=== PATIENT | female | born 1940 | race Caucasian/White ===

== ENCOUNTER 2017-05-16 15:47 | Inpatient (IN) ==
--- NOTE | 2017-05-16 16:29 | Emergency Department Note ---
Disposition Clinical Impression: Dyspnea, Headache, Hypoxia, Pneumonitis, CAP (community acquired pneumonia) Disposition: Admitted As Inpatient Condition: Critical General Adult HPI - General Chief complaint: ED Fall Stated complaint: fell/head injury sent by Isauro Rasmussen/[facility] Time Seen by Provider: 05/16/17 16:25 Source: patient Limitations: no limitations - History of Present Illness Pain Scale: 5 - Related Data Home Medications Medication Instructions Recorded Confirmed ALPRAZolam [Xanax 1 MG Tablet] 1 mg PO HS 09/03/15 05/16/17 Acetaminophen [Tylenol] 325 mg PO Q6HR PRN 05/16/17 05/16/17 Aspirin Enteric Coated [Aspirin EC] 325 mg PO DAILY 05/16/17 05/16/17 Atorvastatin [Lipitor] 40 mg PO HS 05/16/17 05/16/17 Bimatoprost [Lumigan] 1 drop OP QPM 05/16/17 05/16/17 Ergocalciferol (VITAMIN D2) 50,000 unit PO QWEEK 05/16/17 05/16/17 [Vitamin D2] Allergies Allergy/AdvReac Type Severity Reaction Status Date / Time No Known Allergies Allergy Verified 05/12/17 07:32 Past Medical History - Past Medical History Medical history: Reports: cancer Psychiatric history: Reports: anxiety - Social History Smoking Status: Never smoker Smokeless Tobacco Status: No Alcohol use: Reports: none Drug use: Reports: none Physical Exam - General Limitations: no limitations General appearance: alert, anxious Course Vital Signs Temperature 98.0 F 05/16/17 16:11 Pulse Rate 88 05/16/17 16:11 Respiratory Rate 16 05/16/17 16:11 Blood Pressure 106/75 05/16/17 16:11 O2 Sat by Pulse Oximetry 72 05/16/17 16:11 Temperature 97.7 F 05/17/17 08:00 Pulse Rate 60 05/17/17 16:00 Respiratory Rate 27 05/17/17 16:14 Blood Pressure 108/70 05/17/17 16:14 O2 Sat by Pulse Oximetry 97 05/17/17 16:14 Oxygen Delivery Oxygen Delivery Bipap Medical Decision Making - Lab Data Result diagrams: 05/17/17 03:27 05/17/17 03:27 Lab Results 05/16/17 05/16/17 05/16/17 Range/Units 17:03 17:03 17:03 WBC 9.4 (4.3-11.1) K/mcL RBC 5.27 H (3.82-4.97) M/mcL Hgb 16.6 H (11.5-15.4) g/dL Hct 49.9 H (35.3-44.9) % MCV 94.7 (83.0-100.0) fL MCH 31.5 (28.0-33.3) pg MCHC 33.3 (31.6-35.5) g/dL RDW 14.9 H (11.5-14.5) % Plt Count 179 (140-400) K/mcL MPV 10.1 (9.4-12.4) fL Immature Gran % 1.4 (0-4) % Seg Neutrophils % 89.6 % Lymphocytes % 6.2 % Monocytes % 2.0 % Eosinophils % 0.4 % Basophils % 0.4 % Neutrophils # 8.4 (1.6-8.9) K/mcL Lymphocytes # 0.6 (0.6-4.6) K/mcL Monocytes # 0.2 (0.0-1.3) K/mcL Eosinophils # 0.0 (0.0-0.6) K/mcL Basophils # 0.0 (0.0-0.2) K/mcL Nucleated RBCs/100 WBC 0.4 H (0) /100 WBC ESR (0-15) mm/hr Sample Site ABG pH (7.32-7.45) pH Units ABG pCO2 (35-45) mmHg ABG pO2 (85-104) mmHg ABG HCO3 (21-27) mEq/L ABG Total CO2 (20-26) mEq/L ABG O2 Saturation (95-98) % ABG Base Excess (-2 to 3) mEq/L Inderjit Test O2 Delivery Device Blood Gas Modality Inspired O2 (1-15=lpm [id number]=%) Sodium 136 (136-145) mEq/L Potassium 3.8 (3.5-5.1) mEq/L Chloride 102 (98-107) mEq/L Carbon Dioxide 22 L (23-29) mEq/L BUN 30 H (8-23) mg/dL Creatinine 0.96 (0.60-1.20) mg/dL Est GFR ( Amer) > 60 (> 60) Est GFR (Non-Af Amer) 56 L (> 60) BUN/Creatinine Ratio 31 H (6-26) Glucose 82 (70-105) mg/dL POC Glucose (58-89) Calculated Osmolality 287 (280-300) Lactic Acid 2.3 H (0.5-2.2) mmol/L Calcium 9.2 (8.6-10.3) mg/dL Phosphorus 3.7 (2.7-4.5) mg/dL Magnesium 1.7 (1.6-2.6) mg/dL Total Bilirubin 1.0 (0.3-1.0) mg/dL Direct Bilirubin 0.3 H (0.0-0.2) mg/dL Indirect Bilirubin 0.7 (0.0-1.2) mg/dL AST 54 H (13-39) Units/L ALT 78 H (7-52) Units/L Alkaline Phosphatase 192 H (34-104) Units/L Troponin I (< 0.04) ng/mL B-Natriuretic Peptide (Less than 100) pg/mL Serum Total Protein 6.1 L (6.4-8.9) g/dL Albumin 2.9 L (3.5-5.7) g/dL Globulin 3.2 (2.4-3.5) g/dL Albumin/Globulin Ratio 0.9 L (1.1-2.2) Urine Color (Yellow) Urine Clarity (Clear) Urine pH (5.0-8.0) pH Units Ur Specific [place] (1.010-1.025) Urine Protein (Neg-Trace) mg/dL Urine Glucose (UA) (Normal) mg/dL Urine Ketones (Negative) mg/dL Urine Blood (Negative) Urine Nitrite (Negative) Urine Bilirubin (Negative) Urine Urobilinogen (Normal) mg/dL Ur Leukocyte Esterase (Negative) Urine Microscopic RBC (0-3) per hpf Urine Microscopic WBC (0-3) per hpf Ur Squamous Epith Cells (None-Few) per lpf Urine Bacteria (None-Few) per hpf Hyaline Casts (None-Few) per lpf Ur Culture Indicated? (NO) 05/16/17 05/16/17 05/16/17 Range/Units 17:03 17:03 17:21 WBC (4.3-11.1) K/mcL RBC (3.82-4.97) M/mcL Hgb (11.5-15.4) g/dL Hct (35.3-44.9) % MCV (83.0-100.0) fL MCH (28.0-33.3) pg MCHC (31.6-35.5) g/dL RDW (11.5-14.5) % Plt Count (140-400) K/mcL MPV (9.4-12.4) fL Immature Gran % (0-4) % Seg Neutrophils % % Lymphocytes % % Monocytes % % Eosinophils % % Basophils % % Neutrophils # (1.6-8.9) K/mcL Lymphocytes # (0.6-4.6) K/mcL Monocytes # (0.0-1.3) K/mcL Eosinophils # (0.0-0.6) K/mcL Basophils # (0.0-0.2) K/mcL Nucleated RBCs/100 WBC (0) /100 WBC ESR 64 H (0-15) mm/hr Sample Site ABG pH (7.32-7.45) pH Units ABG pCO2 (35-45) mmHg ABG pO2 (85-104) mmHg ABG HCO3 (21-27) mEq/L ABG Total CO2 (20-26) mEq/L ABG O2 Saturation (95-98) % ABG Base Excess (-2 to 3) mEq/L Inderjit Test O2 Delivery Device Blood Gas Modality Inspired O2 (1-15=lpm [id number]=%) Sodium (136-145) mEq/L Potassium (3.5-5.1) mEq/L Chloride (98-107) mEq/L Carbon Dioxide (23-29) mEq/L BUN (8-23) mg/dL Creatinine (0.60-1.20) mg/dL Est GFR ( Amer) (> 60) Est GFR (Non-Af Amer) (> 60) BUN/Creatinine Ratio (6-26) Glucose (70-105) mg/dL POC Glucose (58-89) Calculated Osmolality (280-300) Lactic Acid (0.5-2.2) mmol/L Calcium (8.6-10.3) mg/dL Phosphorus (2.7-4.5) mg/dL Magnesium (1.6-2.6) mg/dL Total Bilirubin (0.3-1.0) mg/dL Direct Bilirubin (0.0-0.2) mg/dL Indirect Bilirubin (0.0-1.2) mg/dL AST (13-39) Units/L ALT (7-52) Units/L Alkaline Phosphatase (34-104) Units/L Troponin I 0.04 H* (< 0.04) ng/mL B-Natriuretic Peptide (Less than 100) pg/mL Serum Total Protein (6.4-8.9) g/dL Albumin (3.5-5.7) g/dL Globulin (2.4-3.5) g/dL Albumin/Globulin Ratio (1.1-2.2) Urine Color Dark Yellow (Yellow) Urine Clarity Cloudy A (Clear) Urine pH 5.0 (5.0-8.0) pH Units Ur Specific [place] > 1.030 H (1.010-1.025) Urine Protein 100 H (Neg-Trace) mg/dL Urine Glucose (UA) Normal (Normal) mg/dL Urine Ketones Trace H (Negative) mg/dL Urine Blood Negative (Negative) Urine Nitrite Negative (Negative) Urine Bilirubin Small H (Negative) Urine Urobilinogen Normal (Normal) mg/dL Ur Leukocyte Esterase Negative (Negative) Urine Microscopic RBC 0-3 (0-3) per hpf Urine Microscopic WBC 5-15 H (0-3) per hpf Ur Squamous Epith Cells Many H (None-Few) per lpf Urine Bacteria None Seen (None-Few) per hpf Hyaline Casts Many H (None-Few) per lpf Ur Culture Indicated? NO (NO) 05/16/17 05/16/17 05/16/17 Range/Units 17:32 19:47 19:48 WBC (4.3-11.1) K/mcL RBC (3.82-4.97) M/mcL Hgb (11.5-15.4) g/dL Hct (35.3-44.9) % MCV (83.0-100.0) fL MCH (28.0-33.3) pg MCHC (31.6-35.5) g/dL RDW (11.5-14.5) % Plt Count (140-400) K/mcL MPV (9.4-12.4) fL Immature Gran % (0-4) % Seg Neutrophils % % Lymphocytes % % Monocytes % % Eosinophils % % Basophils % % Neutrophils # (1.6-8.9) K/mcL Lymphocytes # (0.6-4.6) K/mcL Monocytes # (0.0-1.3) K/mcL Eosinophils # (0.0-0.6) K/mcL Basophils # (0.0-0.2) K/mcL Nucleated RBCs/100 WBC (0) /100 WBC ESR (0-15) mm/hr Sample Site R Radial ABG pH 7.46 H (7.32-7.45) pH Units ABG pCO2 29 L (35-45) mmHg ABG pO2 76 L (85-104) mmHg ABG HCO3 21 (21-27) mEq/L ABG Total CO2 22 (20-26) mEq/L ABG O2 Saturation 96 (95-98) % ABG Base Excess -2 (-2 to 3) mEq/L Inderjit Test Positive O2 Delivery Device NRB Blood Gas Modality Inspired O2 100.0 (1-15=lpm [id number]=%) Sodium (136-145) mEq/L Potassium (3.5-5.1) mEq/L Chloride (98-107) mEq/L Carbon Dioxide (23-29) mEq/L BUN (8-23) mg/dL Creatinine (0.60-1.20) mg/dL Est GFR ( Amer) (> 60) Est GFR (Non-Af Amer) (> 60) BUN/Creatinine Ratio (6-26) Glucose (70-105) mg/dL POC Glucose (58-89) Calculated Osmolality (280-300) Lactic Acid 2.5 H (0.5-2.2) mmol/L Calcium (8.6-10.3) mg/dL Phosphorus (2.7-4.5) mg/dL Magnesium (1.6-2.6) mg/dL Total Bilirubin (0.3-1.0) mg/dL Direct Bilirubin (0.0-0.2) mg/dL Indirect Bilirubin (0.0-1.2) mg/dL AST (13-39) Units/L ALT (7-52) Units/L Alkaline Phosphatase (34-104) Units/L Troponin I (< 0.04) ng/mL B-Natriuretic Peptide 176 H (Less than 100) pg/mL Serum Total Protein (6.4-8.9) g/dL Albumin (3.5-5.7) g/dL Globulin (2.4-3.5) g/dL Albumin/Globulin Ratio (1.1-2.2) Urine Color (Yellow) Urine Clarity (Clear) Urine pH (5.0-8.0) pH Units Ur Specific [place] (1.010-1.025) Urine Protein (Neg-Trace) mg/dL Urine Glucose (UA) (Normal) mg/dL Urine Ketones (Negative) mg/dL Urine Blood (Negative) Urine Nitrite (Negative) Urine Bilirubin (Negative) Urine Urobilinogen (Normal) mg/dL Ur Leukocyte Esterase (Negative) Urine Microscopic RBC (0-3) per hpf Urine Microscopic WBC (0-3) per hpf Ur Squamous Epith Cells (None-Few) per lpf Urine Bacteria (None-Few) per hpf Hyaline Casts (None-Few) per lpf Ur Culture Indicated? (NO) 05/16/17 05/16/17 05/17/17 Range/Units 21:18 21:21 01:54 WBC (4.3-11.1) K/mcL RBC (3.82-4.97) M/mcL Hgb (11.5-15.4) g/dL Hct (35.3-44.9) % MCV (83.0-100.0) fL MCH (28.0-33.3) pg MCHC (31.6-35.5) g/dL RDW (11.5-14.5) % Plt Count (140-400) K/mcL MPV (9.4-12.4) fL Immature Gran % (0-4) % Seg Neutrophils % % Lymphocytes % % Monocytes % % Eosinophils % % Basophils % % Neutrophils # (1.6-8.9) K/mcL Lymphocytes # (0.6-4.6) K/mcL Monocytes # (0.0-1.3) K/mcL Eosinophils # (0.0-0.6) K/mcL Basophils # (0.0-0.2) K/mcL Nucleated RBCs/100 WBC (0) /100 WBC ESR (0-15) mm/hr Sample Site ABG pH 7.44 (7.32-7.45) pH Units ABG pCO2 31 L (35-45) mmHg ABG pO2 61 L (85-104) mmHg ABG HCO3 21 (21-27) mEq/L ABG Total CO2 22 (20-26) mEq/L ABG O2 Saturation 92 L (95-98) % ABG Base Excess -2 (-2 to 3) mEq/L Inderjit Test O2 Delivery Device Blood Gas Modality bipap Inspired O2 50.0 (1-15=lpm sy91-823=%) Sodium (136-145) mEq/L Potassium (3.5-5.1) mEq/L Chloride (98-107) mEq/L Carbon Dioxide (23-29) mEq/L BUN (8-23) mg/dL Creatinine (0.60-1.20) mg/dL Est GFR ( Amer) (> 60) Est GFR (Non-Af Amer) (> 60) BUN/Creatinine Ratio (6-26) Glucose (70-105) mg/dL POC Glucose 159 H (58-89) Calculated Osmolality (280-300) Lactic Acid 1.5 (0.5-2.2) mmol/L Calcium (8.6-10.3) mg/dL Phosphorus (2.7-4.5) mg/dL Magnesium (1.6-2.6) mg/dL Total Bilirubin (0.3-1.0) mg/dL Direct Bilirubin (0.0-0.2) mg/dL Indirect Bilirubin (0.0-1.2) mg/dL AST (13-39) Units/L ALT (7-52) Units/L Alkaline Phosphatase (34-104) Units/L Troponin I (< 0.04) ng/mL B-Natriuretic Peptide (Less than 100) pg/mL Serum Total Protein (6.4-8.9) g/dL Albumin (3.5-5.7) g/dL Globulin (2.4-3.5) g/dL Albumin/Globulin Ratio (1.1-2.2) Urine Color (Yellow) Urine Clarity (Clear) Urine pH (5.0-8.0) pH Units Ur Specific [place] (1.010-1.025) Urine Protein (Neg-Trace) mg/dL Urine Glucose (UA) (Normal) mg/dL Urine Ketones (Negative) mg/dL Urine Blood (Negative) Urine Nitrite (Negative) Urine Bilirubin (Negative) Urine Urobilinogen (Normal) mg/dL Ur Leukocyte Esterase (Negative) Urine Microscopic RBC (0-3) per hpf Urine Microscopic WBC (0-3) per hpf Ur Squamous Epith Cells (None-Few) per lpf Urine Bacteria (None-Few) per hpf Hyaline Casts (None-Few) per lpf Ur Culture Indicated? (NO) 05/17/17 05/17/17 05/17/17 Range/Units 03:27 03:27 04:56 WBC 8.1 (4.3-11.1) K/mcL RBC 4.36 (3.82-4.97) M/mcL Hgb 13.8 D (11.5-15.4) g/dL Hct 40.3 (35.3-44.9) % MCV 92.4 (83.0-100.0) fL MCH 31.7 (28.0-33.3) pg MCHC 34.2 (31.6-35.5) g/dL RDW 15.0 H (11.5-14.5) % Plt Count 103 L (140-400) K/mcL MPV 9.9 (9.4-12.4) fL Immature Gran % 1.1 (0-4) % Seg Neutrophils % 92.2 % Lymphocytes % 4.7 % Monocytes % 1.8 % Eosinophils % 0.0 % Basophils % 0.2 % Neutrophils # 7.5 (1.6-8.9) K/mcL Lymphocytes # 0.4 L (0.6-4.6) K/mcL Monocytes # 0.2 (0.0-1.3) K/mcL Eosinophils # 0.0 (0.0-0.6) K/mcL Basophils # 0.0 (0.0-0.2) K/mcL Nucleated RBCs/100 WBC (0) /100 WBC ESR (0-15) mm/hr Sample Site R Radial ABG pH 7.41 (7.32-7.45) pH Units ABG pCO2 35 (35-45) mmHg ABG pO2 102 (85-104) mmHg ABG HCO3 22 (21-27) mEq/L ABG Total CO2 23 (20-26) mEq/L ABG O2 Saturation 98 (95-98) % ABG Base Excess -2 (-2 to 3) mEq/L Inderjit Test Positive O2 Delivery Device BiPAP Blood Gas Modality Inspired O2 50.0 (1-15=lpm [id number]=%) Sodium 133 L (136-145) mEq/L Potassium 3.8 (3.5-5.1) mEq/L Chloride 104 (98-107) mEq/L Carbon Dioxide 20 L (23-29) mEq/L BUN 26 H (8-23) mg/dL Creatinine 0.72 (0.60-1.20) mg/dL Est GFR ( Amer) > 60 (> 60) Est GFR (Non-Af Amer) > 60 (> 60) BUN/Creatinine Ratio 36 H (6-26) Glucose 147 H (70-105) mg/dL POC Glucose (58-89) Calculated Osmolality 283 (280-300) Lactic Acid (0.5-2.2) mmol/L Calcium 8.0 L (8.6-10.3) mg/dL Phosphorus (2.7-4.5) mg/dL Magnesium (1.6-2.6) mg/dL Total Bilirubin (0.3-1.0) mg/dL Direct Bilirubin (0.0-0.2) mg/dL Indirect Bilirubin (0.0-1.2) mg/dL AST (13-39) Units/L ALT (7-52) Units/L Alkaline Phosphatase (34-104) Units/L Troponin I (< 0.04) ng/mL B-Natriuretic Peptide (Less than 100) pg/mL Serum Total Protein (6.4-8.9) g/dL Albumin (3.5-5.7) g/dL Globulin (2.4-3.5) g/dL Albumin/Globulin Ratio (1.1-2.2) Urine Color (Yellow) Urine Clarity (Clear) Urine pH (5.0-8.0) pH Units Ur Specific [place] (1.010-1.025) Urine Protein (Neg-Trace) mg/dL Urine Glucose (UA) (Normal) mg/dL Urine Ketones (Negative) mg/dL Urine Blood (Negative) Urine Nitrite (Negative) Urine Bilirubin (Negative) Urine Urobilinogen (Normal) mg/dL Ur Leukocyte Esterase (Negative) Urine Microscopic RBC (0-3) per hpf Urine Microscopic WBC (0-3) per hpf Ur Squamous Epith Cells (None-Few) per lpf Urine Bacteria (None-Few) per hpf Hyaline Casts (None-Few) per lpf Ur Culture Indicated? (NO) Attestation Statement - Attestation Attestation: I examined this patient and my medical decision-making was reviewed with the Resident Physician. I agree with the documented findings, disposition and treatment plan as described except to the extent set forth below. [id number] time provided in conjunction with the resident physician Dr. Yee Patient arrives in the care of her daughter. They are concerned about increasing dyspnea, cough, generalized weakness. Patient sustained a recent fall with negative imaging studies. On exam the patient appears tachypneic and visibly dyspneic
[2017-05-16] MEDS ORDERED: 0.9 % Sodium Chloride 1,000 ML IVC ONE (16:46)
[2017-05-16] MEDS ORDERED: methylPREDNISolone 125 MG/2 ML VIAL IVP ONE (16:48)
--- NOTE | 2017-05-16 17:09 | Emergency Department Note ---
Disposition Clinical Impression: Hypoxia Dyspnea Qualifiers: Dyspnea type: unspecified Qualified Code(s): R06.00 - Dyspnea, unspecified Headache Qualifiers: Headache type: unspecified Headache chronicity pattern: unspecified pattern Intractability: not intractable Qualified Code(s): R51 - Headache Disposition: Still a Patient Condition: Fair Referrals: Anabel Rasmussen CNP [Primary Care Provider] - Forms: ED Satisfaction Letter General Adult HPI - General Chief complaint: ED Fall Stated complaint: fell/head injury sent by Isauro Rasmussen/[facility] Time Seen by Provider: 05/16/17 16:25 Source: patient Limitations: no limitations Nursing Notes Reviewed: Yes Vital Signs Reviewed: Yes - History of Present Illness HPI Narrative: Patient states that she fell on evening and was seen in the emergency department and evaluated. Patient today is complaining of headache and shortness of breath. Symptoms have been progressively worse over the last couple of days. She has not had associated nonproductive cough. 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 This taper did end last week. Patient denies fevers, chest pain or abdominal pain. Pain Scale: 0 - Related Data Home Medications Medication Instructions Recorded Confirmed ALPRAZolam [Xanax 1 MG Tablet] 1 mg PO HS 09/03/15 09/03/15 Aspirin/Calcium Carbonate/Mag 325 mg PO DAILY PRN 09/03/15 09/03/15 [Aspirin Buffered 325 mg Tab] Calcium Carbonate [Tums] 1,000 mg PO Q4HR PRN 09/03/15 09/03/15 Cholecalciferol (D-3) [Vitamin D] 2,000 unit PO DAILY 09/03/15 09/03/15 Previous Rx's Medication Instructions Recorded Supplies [SUPPLIES] 1 each .ROUTE AD #1 each 03/15/16 Supplies [SUPPLIES] 1 each .ROUTE AD #4 each 03/15/16 Allergies Allergy/AdvReac Type Severity Reaction Status Date / Time No Known Allergies Allergy Verified 05/12/17 07:32 Review of Systems: CONSTITUTIONAL: No weight loss, fever, chills, weakness or fatigue. HEENT: Eyes: No visual changes. Ears, Nose, Throat: No hearing loss, difficulty talking or unable to swallow. SKIN: No rash or itching. CARDIOVASCULAR: No chest pain, chest pressure or chest discomfort. No palpitations or edema. RESPIRATORY: Shortness of breath GASTROINTESTINAL: No anorexia, nausea, vomiting or diarrhea. No abdominal pain or blood. GENITOURINARY: No burning on urination or hematuria. NEUROLOGICAL: Headache No dizziness, syncope, paralysis, ataxia, numbness or tingling in the extremities. No change in bowel or bladder control. MUSCULOSKELETAL: No muscle pain, back pain, joint pain or stiffness. Past Medical History - Past Medical History Medical history: Reports: cancer Psychiatric history: Reports: anxiety - Social History Smoking Status: Never smoker Smokeless Tobacco Status: No Alcohol use: Reports: none Drug use: Reports: none Physical Exam General: Patient requiring supplemental oxygen Head: Normocephalic Atraumatic Eyes: PERRL, EOMI ENT: Airway patent, no stridor Neck: supple, no meningismus Chest: Rhonchi at the bases bilaterally Cardiac: Regular rate and rhythm, no murmurs, rubs or gallops Abdomen: soft, nontender, nondistended; no guarding, rebound, or tenderness to percussion Musculoskeletal: Calves symmetric, nontender, no palpable cord Skin: Healing scabs and abrasions to the lower extremities Neuro: Alert and Oriented to person, place, and time; No focal deficit, CN 2-12 symmetric and intact - General Limitations: no limitations General appearance: alert, anxious Course - Reevaluation(s) Reevaluation #1: The patient was given steroids as she has recently come off steroid taper and headache may be contributed to by vasculitis 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 The patient's shortness of breath has concern for worsening opacities in the lung. Recent state if the emergency department but not hospitalization. Antibiotics have been given. Patient has not had a productive cough or white count. CTA of the chest is being performed to rule out PE. CT of the head for possible delayed bleed. The family has been updated on her overall status. She is on a nonrebreather but leaving it as blow -by oxygen keeping her pulse ox in the high 80s to low 90s. She will likely need BiPAP. Respiratory has been called in regards to bringing a BiPAP when she returns from [place]. The case has been discussed with Dr. White. Dr. White will be following up on the CTA as well as a likely admission. Vital Signs Temperature 98.0 F 05/16/17 16:11 Pulse Rate 88 05/16/17 16:11 Respiratory Rate 16 05/16/17 16:11 Blood Pressure 106/75 05/16/17 16:11 O2 Sat by Pulse Oximetry 72 05/16/17 16:11 Temperature 98.0 F 05/16/17 16:11 Pulse Rate 99 05/16/17 18:18 Respiratory Rate 15 05/16/17 18:18 Blood Pressure 120/92 05/16/17 18:18 O2 Sat by Pulse Oximetry 95 05/16/17 18:18 Oxygen Delivery Oxygen Delivery Non Rebreather Mask Medical Decision Making - Medical Records Medical records reviewed: Yes I reviewed the patient's medical records. - Lab Data Lab results reviewed: Yes I reviewed the patient's lab results. Result diagrams: 05/16/17 17:03 05/16/17 17:03 Lab Results 05/16/17 05/16/17 05/16/17 Range/Units 17:03 17:03 17:03 WBC 9.4 (4.3-11.1) K/mcL RBC 5.27 H (3.82-4.97) M/mcL Hgb 16.6 H (11.5-15.4) g/dL Hct 49.9 H (35.3-44.9) % MCV 94.7 (83.0-100.0) fL MCH 31.5 (28.0-33.3) pg MCHC 33.3 (31.6-35.5) g/dL RDW 14.9 H (11.5-14.5) % Plt Count 179 (140-400) K/mcL MPV 10.1 (9.4-12.4) fL Immature Gran % 1.4 (0-4) % Seg Neutrophils % 89.6 % Lymphocytes % 6.2 % Monocytes % 2.0 % Eosinophils % 0.4 % Basophils % 0.4 % Neutrophils # 8.4 (1.6-8.9) K/mcL Lymphocytes # 0.6 (0.6-4.6) K/mcL Monocytes # 0.2 (0.0-1.3) K/mcL Eosinophils # 0.0 (0.0-0.6) K/mcL Basophils # 0.0 (0.0-0.2) K/mcL Nucleated RBCs/100 WBC 0.4 H (0) /100 WBC ESR (0-15) mm/hr Sample Site ABG pH (7.32-7.45) pH Units ABG pCO2 (35-45) mmHg ABG pO2 (85-104) mmHg ABG HCO3 (21-27) mEq/L ABG Total CO2 (20-26) mEq/L ABG O2 Saturation (95-98) % ABG Base Excess (-2 to 3) mEq/L Inderjit Test O2 Delivery Device Inspired O2 (1-15=lpm [id number]=%) Sodium 136 (136-145) mEq/L Potassium 3.8 (3.5-5.1) mEq/L Chloride 102 (98-107) mEq/L Carbon Dioxide 22 L (23-29) mEq/L BUN 30 H (8-23) mg/dL Creatinine 0.96 (0.60-1.20) mg/dL Est GFR ( Amer) > 60 (> 60) Est GFR (Non-Af Amer) 56 L (> 60) BUN/Creatinine Ratio 31 H (6-26) Glucose 82 (70-105) mg/dL Calculated Osmolality 287 (280-300) Lactic Acid 2.3 H (0.5-2.2) mmol/L Calcium 9.2 (8.6-10.3) mg/dL Phosphorus 3.7 (2.7-4.5) mg/dL Magnesium 1.7 (1.6-2.6) mg/dL Total Bilirubin 1.0 (0.3-1.0) mg/dL Direct Bilirubin 0.3 H (0.0-0.2) mg/dL Indirect Bilirubin 0.7 (0.0-1.2) mg/dL AST 54 H (13-39) Units/L ALT 78 H (7-52) Units/L Alkaline Phosphatase 192 H (34-104) Units/L Troponin I (< 0.04) ng/mL Serum Total Protein 6.1 L (6.4-8.9) g/dL Albumin 2.9 L (3.5-5.7) g/dL Globulin 3.2 (2.4-3.5) g/dL Albumin/Globulin Ratio 0.9 L (1.1-2.2) Urine Color (Yellow) Urine Clarity (Clear) Urine pH (5.0-8.0) pH Units Ur Specific [place] (1.010-1.025) Urine Protein (Neg-Trace) mg/dL Urine Glucose (UA) (Normal) mg/dL Urine Ketones (Negative) mg/dL Urine Blood (Negative) Urine Nitrite (Negative) Urine Bilirubin (Negative) Urine Urobilinogen (Normal) mg/dL Ur Leukocyte Esterase (Negative) Urine Microscopic RBC (0-3) per hpf Urine Microscopic WBC (0-3) per hpf Ur Squamous Epith Cells (None-Few) per lpf Urine Bacteria (None-Few) per hpf Hyaline Casts (None-Few) per lpf Ur Culture Indicated? (NO) 05/16/17 05/16/17 05/16/17 Range/Units 17:03 17:03 17:21 WBC (4.3-11.1) K/mcL RBC (3.82-4.97) M/mcL Hgb (11.5-15.4) g/dL Hct (35.3-44.9) % MCV (83.0-100.0) fL MCH (28.0-33.3) pg MCHC (31.6-35.5) g/dL RDW (11.5-14.5) % Plt Count (140-400) K/mcL MPV (9.4-12.4) fL Immature Gran % (0-4) % Seg Neutrophils % % Lymphocytes % % Monocytes % % Eosinophils % % Basophils % % Neutrophils # (1.6-8.9) K/mcL Lymphocytes # (0.6-4.6) K/mcL Monocytes # (0.0-1.3) K/mcL Eosinophils # (0.0-0.6) K/mcL Basophils # (0.0-0.2) K/mcL Nucleated RBCs/100 WBC (0) /100 WBC ESR 64 H (0-15) mm/hr Sample Site ABG pH (7.32-7.45) pH Units ABG pCO2 (35-45) mmHg ABG pO2 (85-104) mmHg ABG HCO3 (21-27) mEq/L ABG Total CO2 (20-26) mEq/L ABG O2 Saturation (95-98) % ABG Base Excess (-2 to 3) mEq/L Inderjit Test O2 Delivery Device Inspired O2 (1-15=lpm [id number]=%) Sodium (136-145) mEq/L Potassium (3.5-5.1) mEq/L Chloride (98-107) mEq/L Carbon Dioxide (23-29) mEq/L BUN (8-23) mg/dL Creatinine (0.60-1.20) mg/dL Est GFR ( Amer) (> 60) Est GFR (Non-Af Amer) (> 60) BUN/Creatinine Ratio (6-26) Glucose (70-105) mg/dL Calculated Osmolality (280-300) Lactic Acid (0.5-2.2) mmol/L Calcium (8.6-10.3) mg/dL Phosphorus (2.7-4.5) mg/dL Magnesium (1.6-2.6) mg/dL Total Bilirubin (0.3-1.0) mg/dL Direct Bilirubin (0.0-0.2) mg/dL Indirect Bilirubin (0.0-1.2) mg/dL AST (13-39) Units/L ALT (7-52) Units/L Alkaline Phosphatase (34-104) Units/L Troponin I 0.04 H* (< 0.04) ng/mL Serum Total Protein (6.4-8.9) g/dL Albumin (3.5-5.7) g/dL Globulin (2.4-3.5) g/dL Albumin/Globulin Ratio (1.1-2.2) Urine Color Dark Yellow (Yellow) Urine Clarity Cloudy A (Clear) Urine pH 5.0 (5.0-8.0) pH Units Ur Specific [place] > 1.030 H (1.010-1.025) Urine Protein 100 H (Neg-Trace) mg/dL Urine Glucose (UA) Normal (Normal) mg/dL Urine Ketones Trace H (Negative) mg/dL Urine Blood Negative (Negative) Urine Nitrite Negative (Negative) Urine Bilirubin Small H (Negative) Urine Urobilinogen Normal (Normal) mg/dL Ur Leukocyte Esterase Negative (Negative) Urine Microscopic RBC 0-3 (0-3) per hpf Urine Microscopic WBC 5-15 H (0-3) per hpf Ur Squamous Epith Cells Many H (None-Few) per lpf Urine Bacteria None Seen (None-Few) per hpf Hyaline Casts Many H (None-Few) per lpf Ur Culture Indicated? NO (NO) 05/16/17 Range/Units 17:32 WBC (4.3-11.1) K/mcL RBC (3.82-4.97) M/mcL Hgb (11.5-15.4) g/dL Hct (35.3-44.9) % MCV (83.0-100.0) fL MCH (28.0-33.3) pg MCHC (31.6-35.5) g/dL RDW (11.5-14.5) % Plt Count (140-400) K/mcL MPV (9.4-12.4) fL Immature Gran % (0-4) % Seg Neutrophils % % Lymphocytes % % Monocytes % % Eosinophils % % Basophils % % Neutrophils # (1.6-8.9) K/mcL Lymphocytes # (0.6-4.6) K/mcL Monocytes # (0.0-1.3) K/mcL Eosinophils # (0.0-0.6) K/mcL Basophils # (0.0-0.2) K/mcL Nucleated RBCs/100 WBC (0) /100 WBC ESR (0-15) mm/hr Sample Site R Radial ABG pH 7.46 H (7.32-7.45) pH Units ABG pCO2 29 L (35-45) mmHg ABG pO2 76 L (85-104) mmHg ABG HCO3 21 (21-27) mEq/L ABG Total CO2 22 (20-26) mEq/L ABG O2 Saturation 96 (95-98) % ABG Base Excess -2 (-2 to 3) mEq/L Inderjit Test Positive O2 Delivery Device NRB Inspired O2 100.0 (1-15=lpm [id number]=%) Sodium (136-145) mEq/L Potassium (3.5-5.1) mEq/L Chloride (98-107) mEq/L Carbon Dioxide (23-29) mEq/L BUN (8-23) mg/dL Creatinine (0.60-1.20) mg/dL Est GFR ( Amer) (> 60) Est GFR (Non-Af Amer) (> 60) BUN/Creatinine Ratio (6-26) Glucose (70-105) mg/dL Calculated Osmolality (280-300) Lactic Acid (0.5-2.2) mmol/L Calcium (8.6-10.3) mg/dL Phosphorus (2.7-4.5) mg/dL Magnesium (1.6-2.6) mg/dL Total Bilirubin (0.3-1.0) mg/dL Direct Bilirubin (0.0-0.2) mg/dL Indirect Bilirubin (0.0-1.2) mg/dL AST (13-39) Units/L ALT (7-52) Units/L Alkaline Phosphatase (34-104) Units/L Troponin I (< 0.04) ng/mL Serum Total Protein (6.4-8.9) g/dL Albumin (3.5-5.7) g/dL Globulin (2.4-3.5) g/dL Albumin/Globulin Ratio (1.1-2.2) Urine Color (Yellow) Urine Clarity (Clear) Urine pH (5.0-8.0) pH Units Ur Specific [place] (1.010-1.025) Urine Protein (Neg-Trace) mg/dL Urine Glucose (UA) (Normal) mg/dL Urine Ketones (Negative) mg/dL Urine Blood (Negative) Urine Nitrite (Negative) Urine Bilirubin (Negative) Urine Urobilinogen (Normal) mg/dL Ur Leukocyte Esterase (Negative) Urine Microscopic RBC (0-3) per hpf Urine Microscopic WBC (0-3) per hpf Ur Squamous Epith Cells (None-Few) per lpf Urine Bacteria (None-Few) per hpf Hyaline Casts (None-Few) per lpf Ur Culture Indicated? (NO) - Radiology Data Radiology results reviewed: Yes I reviewed the patient's radiology results. - EKG Data EKG #1 EKG attestation: Yes I reviewed and interpreted this EKG. EKG results narrative: EKG shows sinus rhythm with a rate of 94. Patient's QRS is 102. QTC is 378. No significant ST elevations or depressions.
[2017-05-16 17:13] LABS: Basophils % 0.4 %; Eosinophils % 0.4 %; Hematocrit 49.9 % (35.3-44.9); Hemoglobin 16.6 g/dL (11.5-15.4); Immature Granulocytes % 1.4 % (0-4); Lymphocytes # 0.6 K/mcL (0.6-4.6); Lymphocytes % 6.2 %; Mean Corpuscular HGB Conc 33.3 g/dL (31.6-35.5); Mean Corpuscular Hemoglobin 31.5 pg (28.0-33.3); Mean Corpuscular Volume 94.7 fL (83.0-100.0); Mean Platelet Volume 10.1 fL (9.4-12.4); Monocytes # 0.2 K/mcL (0.0-1.3); Neutrophils # 8.4 K/mcL (1.6-8.9); Nucleated Red Blood Cells 0.4 /100 WBC (0); Platelet Count 179 K/mcL (140-400); Red Blood Count 5.27 M/mcL (3.82-4.97); Red Cell Distribution Width 14.9 % (11.5-14.5); Segmented Neutrophils % 89.6 %
[2017-05-16 17:28] LABS: Bilirubin,Urine Small (Negative); Blood,Urine Negative (Negative); Clarity,Urine Cloudy (Clear); Color,Urine Dark Yellow (Yellow); Glucose,Urine (UA) Normal (Normal); Ketones,Urine Trace mg/dL (Negative); Leukocyte Esterase,Urine Negative (Negative); Nitrite,Urine Negative (Negative); Protein,Urine 100 mg/dL (Neg-Trace); Specific Gravity,Urine > 1.030 (1.010-1.025); Urobilinogen,Urine Normal (Normal)
[2017-05-16 17:31] LABS: Alanine Aminotransferase 78 Units/L (7-52); Albumin 2.9 g/dL (3.5-5.7); Albumin/Globulin Ratio 0.9 (1.1-2.2); Alkaline Phosphatase 192 Units/L (34-104); Aspartate Amino Transferase 54 Units/L (13-39); BUN/Creatinine Ratio 31 (6-26); Bilirubin,Direct 0.3 mg/dL (0.0-0.2); Bilirubin,Indirect 0.7 mg/dL (0.0-1.2); Blood Urea Nitrogen 30 mg/dL (8-23); Calcium 9.2 mg/dL (8.6-10.3); Carbon Dioxide 22 mEq/L (23-29); Chloride 102 mEq/L (98-107); Globulin 3.2 g/dL (2.4-3.5); Glucose 82 mg/dL (70-105); Magnesium 1.7 mg/dL (1.6-2.6); Osmolality,Calculated 287 (280-300); Phosphorous 3.7 mg/dL (2.7-4.5); Potassium 3.8 mEq/L (3.5-5.1); Sodium 136 mEq/L (136-145); Total Protein 6.1 g/dL (6.4-8.9); eGFR For African Americans > 60 (> 60); eGFR For Non-African Americans 56 (> 60)
[2017-05-16 17:31] LABS: Bacteria,Urine None Seen per hpf (None-Few); RBC,Urine 0-3 per hpf (0-3); Squamous Epithelial Cell,Urine Many per lpf (None-Few)
[2017-05-16 17:35] LABS: ABG Base Excess -2 mEq/L (-2 to 3); ABG HCO3 21 mEq/L (21-27); ABG Oxygen Saturation 96 % (95-98); ABG PCO2 29 mmHg (35-45); ABG PH 7.46 pH Units (7.32-7.45); ABG PO2 76 mmHg (85-104); ABG TCO2 22 mEq/L (20-26)
[2017-05-16 17:44] LABS: Hyaline Casts,Urine Many per lpf (None-Few)
[2017-05-16] MEDS ORDERED: *HR* FentaNYL (PF) 100 MCG/2 ML VIAL IVP ONE (18:15)
[2017-05-16] MEDS ORDERED: cefTRIAXone 1,000 MG in Water for inj. (sterile) 20 ML 10 ML IVPB ONE (19:07)
[2017-05-16] MEDS ORDERED: Azithromycin 500 MG in D5% in Water 250 ML IVPB ONE (19:08)
[2017-05-16] MEDS ORDERED: Vancomycin 2,000 MG in D5% in Water 250 ML IVPB ONE (19:58)
[2017-05-16] MEDS ORDERED: Piperacillin/Tazobactam 3.375 GM in Water for inj. (sterile) 20 ML 20 ML IVP ONE (19:58)
[2017-05-16] MEDS ORDERED: Vancomycin 1,000 MG in D5% in Water 250 ML IVPB ONE (20:15)
--- NOTE | 2017-05-16 21:11 | Emergency Department Note ---
Disposition Clinical Impression: Hypoxia, Pneumonitis Dyspnea Qualifiers: Dyspnea type: unspecified Qualified Code(s): R06.00 - Dyspnea, unspecified Headache Qualifiers: Headache type: unspecified Headache chronicity pattern: unspecified pattern Intractability: not intractable Qualified Code(s): R51 - Headache CAP (community acquired pneumonia) Qualifiers: Laterality: unspecified laterality Qualified Code(s): J18.9 - Pneumonia, unspecified organism Disposition: Admitted As Inpatient Condition: Critical Time of Disposition: 21:13 General Adult HPI - General Chief complaint: ED Fall Stated complaint: fell/head injury sent by Isauro Rasmussen/Haile Time Seen by Provider: 05/16/17 16:25 Source: patient Limitations: no limitations Nursing Notes Reviewed: Yes Vital Signs Reviewed: Yes - History of Present Illness Onset (ago): minute(s) Pain Scale: 0 - Related Data Home Medications Medication Instructions Recorded Confirmed ALPRAZolam [Xanax 1 MG Tablet] 1 mg PO HS 09/03/15 05/16/17 Acetaminophen [Tylenol] 325 mg PO Q6HR PRN 05/16/17 05/16/17 Aspirin Enteric Coated [Aspirin EC] 325 mg PO DAILY 05/16/17 05/16/17 Atorvastatin [Lipitor] 40 mg PO HS 05/16/17 05/16/17 Bimatoprost [Lumigan] 1 drop OP QPM 05/16/17 05/16/17 Ergocalciferol (VITAMIN D2) 50,000 unit PO QWEEK 05/16/17 05/16/17 [Vitamin D2] Allergies Allergy/AdvReac Type Severity Reaction Status Date / Time No Known Allergies Allergy Verified 05/12/17 07:32 Past Medical History - Past Medical History Medical history: Reports: cancer Psychiatric history: Reports: anxiety - Social History Smoking Status: Never smoker Smokeless Tobacco Status: No Alcohol use: Reports: none Drug use: Reports: none Physical Exam - General Limitations: no limitations General appearance: alert, anxious Course Course Narrative: Care was signed out from Dr. Yee, Dr. Roque, please see their documentation briefly patient is a 76-year-old female with recent fall and complains of shortness of breath chest pain and headache, she is found to be hypoxic and she has coarse rhonchi bilaterally CTA was ordered to rule out other causes of hypoxia and it showed diffuse parenchymal lung disease, the patient was started on broad-spectrum antibiotics of vancomycin and Zosyn, placed on BiPAP, repeat ABG and called the hospitalist the patient will be admitted for pneumonia, possible ARDS versus pneumonitisadmitted to ICU with Dr Canseco, see exam from Dr Yee. Vital Signs Temperature 98.0 F 05/16/17 16:11 Pulse Rate 88 05/16/17 16:11 Respiratory Rate 16 05/16/17 16:11 Blood Pressure 106/75 05/16/17 16:11 O2 Sat by Pulse Oximetry 72 05/16/17 16:11 Temperature 98.0 F 05/16/17 16:11 Pulse Rate 73 05/16/17 20:34 Respiratory Rate 24 05/16/17 20:34 Blood Pressure 127/94 05/16/17 20:34 O2 Sat by Pulse Oximetry 92 05/16/17 20:34 Oxygen Delivery Oxygen Delivery Bipap Medical Decision Making - Medical Records Medical records reviewed: Yes I reviewed the patient's medical records. - Lab Data Lab results reviewed: Yes I reviewed the patient's lab results. Result diagrams: 05/16/17 17:03 05/16/17 17:03 Lab Results 05/16/17 05/16/17 05/16/17 Range/Units 17:03 17:03 17:03 WBC 9.4 (4.3-11.1) K/mcL RBC 5.27 H (3.82-4.97) M/mcL Hgb 16.6 H (11.5-15.4) g/dL Hct 49.9 H (35.3-44.9) % MCV 94.7 (83.0-100.0) fL MCH 31.5 (28.0-33.3) pg MCHC 33.3 (31.6-35.5) g/dL RDW 14.9 H (11.5-14.5) % Plt Count 179 (140-400) K/mcL MPV 10.1 (9.4-12.4) fL Immature Gran % 1.4 (0-4) % Seg Neutrophils % 89.6 % Lymphocytes % 6.2 % Monocytes % 2.0 % Eosinophils % 0.4 % Basophils % 0.4 % Neutrophils # 8.4 (1.6-8.9) K/mcL Lymphocytes # 0.6 (0.6-4.6) K/mcL Monocytes # 0.2 (0.0-1.3) K/mcL Eosinophils # 0.0 (0.0-0.6) K/mcL Basophils # 0.0 (0.0-0.2) K/mcL Nucleated RBCs/100 WBC 0.4 H (0) /100 WBC ESR (0-15) mm/hr Sample Site ABG pH (7.32-7.45) pH Units ABG pCO2 (35-45) mmHg ABG pO2 (85-104) mmHg ABG HCO3 (21-27) mEq/L ABG Total CO2 (20-26) mEq/L ABG O2 Saturation (95-98) % ABG Base Excess (-2 to 3) mEq/L Inderjit Test O2 Delivery Device Inspired O2 (1-15=lpm [id number]=%) Sodium 136 (136-145) mEq/L Potassium 3.8 (3.5-5.1) mEq/L Chloride 102 (98-107) mEq/L Carbon Dioxide 22 L (23-29) mEq/L BUN 30 H (8-23) mg/dL Creatinine 0.96 (0.60-1.20) mg/dL Est GFR ( Amer) > 60 (> 60) Est GFR (Non-Af Amer) 56 L (> 60) BUN/Creatinine Ratio 31 H (6-26) Glucose 82 (70-105) mg/dL Calculated Osmolality 287 (280-300) Lactic Acid 2.3 H (0.5-2.2) mmol/L Calcium 9.2 (8.6-10.3) mg/dL Phosphorus 3.7 (2.7-4.5) mg/dL Magnesium 1.7 (1.6-2.6) mg/dL Total Bilirubin 1.0 (0.3-1.0) mg/dL Direct Bilirubin 0.3 H (0.0-0.2) mg/dL Indirect Bilirubin 0.7 (0.0-1.2) mg/dL AST 54 H (13-39) Units/L ALT 78 H (7-52) Units/L Alkaline Phosphatase 192 H (34-104) Units/L Troponin I (< 0.04) ng/mL B-Natriuretic Peptide (Less than 100) pg/mL Serum Total Protein 6.1 L (6.4-8.9) g/dL Albumin 2.9 L (3.5-5.7) g/dL Globulin 3.2 (2.4-3.5) g/dL Albumin/Globulin Ratio 0.9 L (1.1-2.2) Urine Color (Yellow) Urine Clarity (Clear) Urine pH (5.0-8.0) pH Units Ur Specific Conway (1.010-1.025) Urine Protein (Neg-Trace) mg/dL Urine Glucose (UA) (Normal) mg/dL Urine Ketones (Negative) mg/dL Urine Blood (Negative) Urine Nitrite (Negative) Urine Bilirubin (Negative) Urine Urobilinogen (Normal) mg/dL Ur Leukocyte Esterase (Negative) Urine Microscopic RBC (0-3) per hpf Urine Microscopic WBC (0-3) per hpf Ur Squamous Epith Cells (None-Few) per lpf Urine Bacteria (None-Few) per hpf Hyaline Casts (None-Few) per lpf Ur Culture Indicated? (NO) 05/16/17 05/16/17 05/16/17 Range/Units 17:03 17:03 17:21 WBC (4.3-11.1) K/mcL RBC (3.82-4.97) M/mcL Hgb (11.5-15.4) g/dL Hct (35.3-44.9) % MCV (83.0-100.0) fL MCH (28.0-33.3) pg MCHC (31.6-35.5) g/dL RDW (11.5-14.5) % Plt Count (140-400) K/mcL MPV (9.4-12.4) fL Immature Gran % (0-4) % Seg Neutrophils % % Lymphocytes % % Monocytes % % Eosinophils % % Basophils % % Neutrophils # (1.6-8.9) K/mcL Lymphocytes # (0.6-4.6) K/mcL Monocytes # (0.0-1.3) K/mcL Eosinophils # (0.0-0.6) K/mcL Basophils # (0.0-0.2) K/mcL Nucleated RBCs/100 WBC (0) /100 WBC ESR 64 H (0-15) mm/hr Sample Site ABG pH (7.32-7.45) pH Units ABG pCO2 (35-45) mmHg ABG pO2 (85-104) mmHg ABG HCO3 (21-27) mEq/L ABG Total CO2 (20-26) mEq/L ABG O2 Saturation (95-98) % ABG Base Excess (-2 to 3) mEq/L Inderjit Test O2 Delivery Device Inspired O2 (1-15=lpm [id number]=%) Sodium (136-145) mEq/L Potassium (3.5-5.1) mEq/L Chloride (98-107) mEq/L Carbon Dioxide (23-29) mEq/L BUN (8-23) mg/dL Creatinine (0.60-1.20) mg/dL Est GFR ( Amer) (> 60) Est GFR (Non-Af Amer) (> 60) BUN/Creatinine Ratio (6-26) Glucose (70-105) mg/dL Calculated Osmolality (280-300) Lactic Acid (0.5-2.2) mmol/L Calcium (8.6-10.3) mg/dL Phosphorus (2.7-4.5) mg/dL Magnesium (1.6-2.6) mg/dL Total Bilirubin (0.3-1.0) mg/dL Direct Bilirubin (0.0-0.2) mg/dL Indirect Bilirubin (0.0-1.2) mg/dL AST (13-39) Units/L ALT (7-52) Units/L Alkaline Phosphatase (34-104) Units/L Troponin I 0.04 H* (< 0.04) ng/mL B-Natriuretic Peptide (Less than 100) pg/mL Serum Total Protein (6.4-8.9) g/dL Albumin (3.5-5.7) g/dL Globulin (2.4-3.5) g/dL Albumin/Globulin Ratio (1.1-2.2) Urine Color Dark Yellow (Yellow) Urine Clarity Cloudy A (Clear) Urine pH 5.0 (5.0-8.0) pH Units Ur Specific Conway > 1.030 H (1.010-1.025) Urine Protein 100 H (Neg-Trace) mg/dL Urine Glucose (UA) Normal (Normal) mg/dL Urine Ketones Trace H (Negative) mg/dL Urine Blood Negative (Negative) Urine Nitrite Negative (Negative) Urine Bilirubin Small H (Negative) Urine Urobilinogen Normal (Normal) mg/dL Ur Leukocyte Esterase Negative (Negative) Urine Microscopic RBC 0-3 (0-3) per hpf Urine Microscopic WBC 5-15 H (0-3) per hpf Ur Squamous Epith Cells Many H (None-Few) per lpf Urine Bacteria None Seen (None-Few) per hpf Hyaline Casts Many H (None-Few) per lpf Ur Culture Indicated? NO (NO) 05/16/17 05/16/17 05/16/17 Range/Units 17:32 19:47 19:48 WBC (4.3-11.1) K/mcL RBC (3.82-4.97) M/mcL Hgb (11.5-15.4) g/dL Hct (35.3-44.9) % MCV (83.0-100.0) fL MCH (28.0-33.3) pg MCHC (31.6-35.5) g/dL RDW (11.5-14.5) % Plt Count (140-400) K/mcL MPV (9.4-12.4) fL Immature Gran % (0-4) % Seg Neutrophils % % Lymphocytes % % Monocytes % % Eosinophils % % Basophils % % Neutrophils # (1.6-8.9) K/mcL Lymphocytes # (0.6-4.6) K/mcL Monocytes # (0.0-1.3) K/mcL Eosinophils # (0.0-0.6) K/mcL Basophils # (0.0-0.2) K/mcL Nucleated RBCs/100 WBC (0) /100 WBC ESR (0-15) mm/hr Sample Site R Radial ABG pH 7.46 H (7.32-7.45) pH Units ABG pCO2 29 L (35-45) mmHg ABG pO2 76 L (85-104) mmHg ABG HCO3 21 (21-27) mEq/L ABG Total CO2 22 (20-26) mEq/L ABG O2 Saturation 96 (95-98) % ABG Base Excess -2 (-2 to 3) mEq/L Inderjit Test Positive O2 Delivery Device NRB Inspired O2 100.0 (1-15=lpm [id number]=%) Sodium (136-145) mEq/L Potassium (3.5-5.1) mEq/L Chloride (98-107) mEq/L Carbon Dioxide (23-29) mEq/L BUN (8-23) mg/dL Creatinine (0.60-1.20) mg/dL Est GFR ( Amer) (> 60) Est GFR (Non-Af Amer) (> 60) BUN/Creatinine Ratio (6-26) Glucose (70-105) mg/dL Calculated Osmolality (280-300) Lactic Acid 2.5 H (0.5-2.2) mmol/L Calcium (8.6-10.3) mg/dL Phosphorus (2.7-4.5) mg/dL Magnesium (1.6-2.6) mg/dL Total Bilirubin (0.3-1.0) mg/dL Direct Bilirubin (0.0-0.2) mg/dL Indirect Bilirubin (0.0-1.2) mg/dL AST (13-39) Units/L ALT (7-52) Units/L Alkaline Phosphatase (34-104) Units/L Troponin I (< 0.04) ng/mL B-Natriuretic Peptide 176 H (Less than 100) pg/mL Serum Total Protein (6.4-8.9) g/dL Albumin (3.5-5.7) g/dL Globulin (2.4-3.5) g/dL Albumin/Globulin Ratio (1.1-2.2) Urine Color (Yellow) Urine Clarity (Clear) Urine pH (5.0-8.0) pH Units Ur Specific Conway (1.010-1.025) Urine Protein (Neg-Trace) mg/dL Urine Glucose (UA) (Normal) mg/dL Urine Ketones (Negative) mg/dL Urine Blood (Negative) Urine Nitrite (Negative) Urine Bilirubin (Negative) Urine Urobilinogen (Normal) mg/dL Ur Leukocyte Esterase (Negative) Urine Microscopic RBC (0-3) per hpf Urine Microscopic WBC (0-3) per hpf Ur Squamous Epith Cells (None-Few) per lpf Urine Bacteria (None-Few) per hpf Hyaline Casts (None-Few) per lpf Ur Culture Indicated? (NO) - Radiology Data Radiology results reviewed: Yes I reviewed the patient's radiology results. Chest X-Ray 05/16/17 16:48 IMPRESSION: Increased pulmonary opacity bilaterally. Pneumonia is favored over edema. Radiographic follow-up is suggested. D/ / 05/16/2017 17:21:49 Dov Naranjo MD / eulogio Interpreting Provider: Dov Naranjo MD Head CT 05/16/17 16:49 IMPRESSION: 1. No acute intracranial abnormality. 2. Stable chronic small vessel ischemic white matter disease. 3. Bilateral sphenoid sinusitis. D/ / 05/16/2017 20:02:48 Yoav Rivas MD / eulogio Interpreting Provider: Yoav Rivas MD Chest CTA 05/16/17 16:51 IMPRESSION: 1. Extensive diffuse lung parenchymal disease which has the appearance of possible ARDS/pulmonary edema. No evidence of pleural disease. 2. No evidence of acute pulmonary embolism at this time. No evidence of acute aortic disease. D/ / 05/16/2017 20:06:17 Shannon Edwards MD / eulogio Interpreting Provider: Shannon Edwards MD Critical Care Time Critical Care Time: Yes Total Critical Care Time: 45 Attestation: Critical care performed: Time is exclusive of separately billable procedures. Time includes: direct patient care, patient reassessment, coordination of patient care, interpretation of data (laboratory data, radiology data, and respiratory data), review of patient's medical records, medical consultation and documentation of patient care. Procedures included in critical care time: Procedures excluded from critical care time: Attestation Statement - Attestation Attestation: IMalcolm MD, personally evaluated this patient and discussed their management with the resident physician. I reviewed the resident's note and agree with the documented findings, medical decision making, and plan of care. This patient was signed out at shift change from Dr. Yee and Dr. Roque. Please refer to their notes for complete details of the history and physical examination. At shift change patient awaiting final test results and CT scans. Patient had a fall several days ago and was seen here and had a workup including CT scans which were negative. She returns today because of shortness of breath and hypoxia. Oxygen saturation was 77%. She also complains of some left-sided headache. Repeat head CT showed no acute intracranial abnormality. Chest x-ray showed peripheral bilateral airspace disease, likely pneumonia. CTA of the chest obtained and shows: 1. Extensive diffuse lung parenchymal disease which has the appearance of possible ARDS/pulmonary edema. No evidence of pleural disease. 2. No evidence of acute pulmonary embolism at this time. No evidence of acute aortic disease. Labs reviewed. Patient was placed on BiPAP. Antibiotics initiated. The hospitalist, Dr. Canseco, was consulted and accepted admission of the patient to ICU.
[2017-05-16 21:21] LABS: ABG Base Excess -2 mEq/L (-2 to 3); ABG HCO3 21 mEq/L (21-27); ABG Oxygen Saturation 92 % (95-98); ABG PCO2 31 mmHg (35-45); ABG PH 7.44 pH Units (7.32-7.45); ABG PO2 61 mmHg (85-104); ABG TCO2 22 mEq/L (20-26); Blood Gas Modality bipap
[2017-05-17] MEDS: ALPRAZolam 1 MG TABLET PO SCH ×2 (01:10→21:12)
--- NOTE | 2017-05-17 01:52 | Internal Med History&Physical ---
<Alissa Lopez - Last Filed: 05/17/17 01:49> Date of Encounter: 05/17/17 Time of Encounter: 01:49 Assessment and Plan (1) CAP (community acquired pneumonia) Current visit: Yes Status: Acute CAP Pneumonia. 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 CXR demonstrated increased pulmonary capacity bilaterally, most likely pneumonia. CTA extensive diffuse lung parenchymal disease which has appearance of possible ARDS/pulmonary edema. No PE or acute aortic disease. Lungs were clear to auscultation, rales bilateral bases Afebrile, WBC WNL lactic acid 1.5 (2.5) SPO2 90% on bipap plan zosyn vancomycin Solu-Medrol influenza pending blood cultures pending continue BiPAP and then transition to nasal cannula Qualifiers: Laterality: unspecified laterality Qualified Code(s): J18.9 - Pneumonia, unspecified organism (2) Hypoxia Current visit: Yes Status: Acute ARDS that may be secondary to discontinuation of steroids. 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 CXR demonstrated increased pulmonary capacity bilaterally, most likely pneumonia. CTA extensive diffuse lung parenchymal disease which has appearance of possible ARDS/pulmonary edema. No PE or acute aortic disease. SPO2 90% on bipap and was 70% in ED initially ABG: pH 7.44 CO2 31 O2 61 HCO3 21 Continue BiPAP continue Solu-Medrol (3) Headache Current visit: Yes Status: Acute She fell last and hit her head but did not lose consciousness. Her head still hurts but has been slowly improving. Head CT no acute intracranial abnormality. Qualifiers: Headache type: unspecified Headache chronicity pattern: unspecified pattern Intractability: not intractable Qualified Code(s): R51 - Headache (4) Hyperlipemia Current visit: Yes Status: Acute Continue home Lipitor Qualifiers: Qualified Code(s): E78.5 - Hyperlipidemia, unspecified (5) Anxiety Current visit: Yes Status: Acute Continue home Xanax (6) DVT prophylaxis Current visit: Yes Status: Acute heparin sq Internal Medicine - H&P: HPI Chief complaint: shortness of breathe Admitted From: Emergency Dept Plans for Post Hospital Care: Home History of present illness: Ms. Miranda is a 76 year old female with PHM breast cancer, aoritis, HLD, glaucoma who presented to [employer] complaining of a headache and shortness of breath. She reported that she fell last and hit her head but did not lose conscious and it has been hurting since. On Monday the next day she came to the ED and head CT was normal. She reports that the head pain has been slowly improving however, for the past 3 days she has had increased shortness of breath. She admits fatigue, fever, chills, nausea. Denies chest pain, cough , confusion, difficulty speaking, facial droop, abdominal pain, diarrhea. 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 She denies recent travel and has not had her flu shot. When asked about code status she stated that she wanted her code status to be [id number]. In ED her SPO2 was 72 and she was then placed on room air. CXR demonstrated increased pulmonary capacity bilaterally, most likely pneumonia. CTA extensive diffuse lung parenchymal disease which has appearance of possible ARDS/pulmonary edema. No PE or acute aortic disease. Head CT no acute intracranial abnormality. In ED she received vancomycin, Zosyn, Rocephin, azithromycin, Solu-Medrol. Past Med Surg Social Fam HX - Past Medical History Medical history: cancer (breast) Psychiatric history: anxiety - Past Surgical History Surgical History: hysterectomy, other (mastectomy) - Social History Smoking Status: Never smoker Smokeless Tobacco Status: No Alcohol use: none Drug use: none Internal Medicine - H&P: Meds ALPRAZolam [Xanax 1 MG Tablet] 1 mg PO HS 09/03/15 [History] Acetaminophen [Tylenol] 325 mg PO Q6HR PRN 05/16/17 [History] Aspirin Enteric Coated [Aspirin EC] 325 mg PO DAILY 05/16/17 [History] Atorvastatin [Lipitor] 40 mg PO HS 05/16/17 [History] Bimatoprost [Lumigan] 1 drop OP QPM 05/16/17 [History] Ergocalciferol (VITAMIN D2) [Vitamin D2] 50,000 unit PO QWEEK 05/16/17 [History] 3 Allergy/AdvReac Type Severity Reaction Status Date / Time No Known Allergies Allergy Verified 05/12/17 07:32 All Systems PM: A 10-system review of systems was performed and is negative for pertinent findings except as documented above in the HPI. - Constitutional Constitutional: chills, fever(s), lethargy, weakness - EENT Eyes: no change in vision - Cardiovascular Cardiovascular ROS IM: no chest pain, no diaphoresis, no syncope - Respiratory Respiratory: dyspnea, no cough, no hemoptysis, no wheezing - Gastrointestinal Gastrointestinal: nausea, no abdominal pain, no diarrhea, no vomiting - Neurological Neurological ROS: headache(s), no abnormal gait, no abnormal speech, no behavioral changes, no confusion, no dizziness, no paresthesias - Psychiatric Psychiatric: no confusion - Constitutional Vitals: Temp Pulse Resp BP Pulse Ox 97.8 F 66 34 112/99 94 05/17/17 00:32 05/17/17 01:00 05/17/17 01:00 05/17/17 01:00 05/17/17 01:00 General appearance: Present: A&O X 3, pleasant, no acute distress, answers questions appropriately - Head Head exam: Present: atraumatic, normal inspection, normocephalic - Eye Eye exam: Present: conjunctival injection, normal appearance - Respiratory Respiratory exam: Present: CTAB, rales (Bases bilaterally). Absent: rhonchi, wheezes - Cardiovascular Cardiovascular exam: Present: RRR. Absent: clicks - GI/Abdominal GI/Abdominal exam: Present: normal bowel sounds, soft. Absent: tenderness - Extremities Exam Extremities exam: Present: normal inspection. Absent: tenderness - Neurological Exam Neurological exam: Present: alert, oriented X3. Absent: facial droop - Psychiatric Psychiatric exam: Present: normal affect, normal mood. Absent: agitated, anxious - Skin Skin exam: Present: dry, intact Internal Med - H&P Results - Labs CBC & Chem 7: 05/16/17 17:03 05/16/17 17:03 - ABG Interpretation ABG results: 05/16/17 21:18 ABG pH 7.44 ABG pCO2 31 L ABG pO2 61 L ABG HCO3 21 ABG Total CO2 22 ABG O2 Saturation 92 L ABG Base Excess -2 <Garrison Vicente - Last Filed: 05/17/17 05:36> Date of Encounter: 05/17/17 Internal Medicine - H&P: [facility] History of present illness: Ms. Miranda is a 76 year old female All Systems PM: A 10-system review of systems was performed and is negative for pertinent findings except as documented above in the HPI. - Constitutional Vitals: Temp Pulse Resp BP Pulse Ox 97.8 F 71 35 123/76 88 05/17/17 00:32 05/17/17 05:00 05/17/17 05:00 05/17/17 05:00 05/17/17 05:00 Internal Med - H&P Results - Labs CBC & Chem 7: 05/17/17 03:27 05/17/17 03:27 Labs: Short CBC 05/17/17 Range/Units 03:27 WBC 8.1 (4.3-11.1) K/mcL Hgb 13.8 D (11.5-15.4) g/dL Hct 40.3 (35.3-44.9) % Plt Count 103 L (140-400) K/mcL Neutrophils # 7.5 (1.6-8.9) K/mcL BMP 05/17/17 03:27 Sodium 133 L Potassium 3.8 Chloride 104 Carbon Dioxide 20 L BUN 26 H Creatinine 0.72 Glucose 147 H Calcium 8.0 L - ABG Interpretation ABG results: 05/16/17 05/17/17 21:18 04:56 ABG pH 7.44 7.41 ABG pCO2 31 L 35 ABG pO2 61 L 102 ABG HCO3 21 22 ABG Total CO2 22 23 ABG O2 Saturation 92 L 98 ABG Base Excess -2 -2 - Attending Attestation I have seen and examined pt independently. I have discussed with resident physician Dr Lopez regarding the management plan. Agree with the documentation.
[2017-05-17] MEDS ORDERED: Naloxone 0.4 MG/ML INJ IVP PRN (01:54)
[2017-05-17 04:04] LABS: Basophils % 0.2 %; Hematocrit 40.3 % (35.3-44.9); Immature Granulocytes % 1.1 % (0-4); Lymphocytes % 4.7 %; Mean Corpuscular HGB Conc 34.2 g/dL (31.6-35.5); Mean Corpuscular Hemoglobin 31.7 pg (28.0-33.3); Mean Corpuscular Volume 92.4 fL (83.0-100.0); Mean Platelet Volume 9.9 fL (9.4-12.4); Monocytes % 1.8 %; Platelet Count 103 K/mcL (140-400); Red Blood Count 4.36 M/mcL (3.82-4.97); Segmented Neutrophils % 92.2 %
[2017-05-17 04:05] LABS: Lymphocytes # 0.4 K/mcL (0.6-4.6); Monocytes # 0.2 K/mcL (0.0-1.3); Neutrophils # 7.5 K/mcL (1.6-8.9)
[2017-05-17 04:06] LABS: Hemoglobin 13.8 g/dL (11.5-15.4)
[2017-05-17 04:33] LABS: BUN/Creatinine Ratio 36 (6-26); Blood Urea Nitrogen 26 mg/dL (8-23); Carbon Dioxide 20 mEq/L (23-29); Chloride 104 mEq/L (98-107); Glucose 147 mg/dL (70-105); Osmolality,Calculated 283 (280-300); Potassium 3.8 mEq/L (3.5-5.1); Sodium 133 mEq/L (136-145); eGFR For African Americans > 60 (> 60); eGFR For Non-African Americans > 60 (> 60)
[2017-05-17] MEDS ORDERED: *HR* FentaNYL (PF) 100 MCG/2 ML VIAL IVP ONE (04:47)
[2017-05-17 05:00] LABS: ABG Base Excess -2 mEq/L (-2 to 3); ABG HCO3 22 mEq/L (21-27); ABG Oxygen Saturation 98 % (95-98); ABG PCO2 35 mmHg (35-45); ABG PH 7.41 pH Units (7.32-7.45); ABG PO2 102 mmHg (85-104); ABG TCO2 23 mEq/L (20-26)
[2017-05-17] MEDS: *HR* Heparin 5,000 UNIT/ML VIAL SQ SCH ×3 (05:32→21:11)
[2017-05-17] MEDS ORDERED: Piperacillin/Tazobactam 3.375 GM in 0.9 % Sodium Chloride Mini Bag 100 ML IVPB SCH (06:00)
[2017-05-17] MEDS: methylPREDNISolone 125 MG/2 ML VIAL IVP SCH ×3 (07:49→23:30)
[2017-05-17] MEDS: Aspirin Enteric Coated 325 MG Tablet PO SCH (07:49)
[2017-05-17] MEDS: Ipratropium/Albuterol Neb 3 ML IH SCH ×5 (09:41→23:13)
[2017-05-17] MEDS ORDERED: Ipratropium/Albuterol Neb 3 ML ONE (09:42)
--- NOTE | 2017-05-17 10:15 | Event Note ---
<Scott Vera G - Last Filed: 05/17/17 10:07> Date of Encounter: 05/17/17 Time of Encounter: 10:07 Patient was admitted overnight after having a fall at home late last week in complaining of headache and shortness of breath. She was initially evaluated in the ED after this fall and had a head CT that was unremarkable. At the time I examined the patient felt generally tired but had no other complaints and did state that she felt much better. CT scan of the chest revealed diffuse lung parenchymal opacifications that is completely new when compared to a CT of the chest performed 1 week ago. The differential includes infectious process, diffuse alveolar hemorrhage, lap rapidly progressing interstitial lung disease including rheumatologic conditions , pulmonary edema, or ARDS. These images were reviewed with the pulmonary/ critical care attending who felt that she will need further workup including serologic testing and possible bronchoscopy. It is also felt that this patient is at high risk for decompensation therefore we will formally consult pulmonary/ critical care and they will assume the care of the patient while in the ICU. Of note I had a long discussion with the patient and the patient's daughter who is a patient nominated as her medical power of state attorney and primary spokesperson in the event that she cannot speak for herself. I explained the patient's clinical situation to both the patient and the daughter and described the risk of decompensation that could require intubation and mechanical ventilation. Patient stated very clearly in the presence of myself, Zane aFirbanks RN, and the patient's daughter that she did not want long-term ventilatory support but would be okay with short-term intubation. She also stated that in the event of a cardiac arrest she would not want heroic or resuscitative measures. The patient's CODE STATUS was changed to DNR CCA to reflect the patient's wishes. Both the patient and family were given the opportunity to ask questions and expressed that they understood the current situation, risk for decompensation requiring invasive mechanical ventilation and the patient's wishes regarding her goals of care. <Jose Aguilera - Last Filed: 05/17/17 16:47> Date of Encounter: 05/17/17 The patient is currently on mechanical ventilation, will defer management to curatorial specialist
--- NOTE | 2017-05-17 13:07 | Pulmonology Consult Note ---
<Reuben Yanes - Last Filed: 05/17/17 13:03> Date of Encounter: 05/17/17 Time of Encounter: 12:00 Assessment and Plan (1) Pneumonia Current Visit: Yes Status: Acute Diffuse bilateral pneumonia. Clinically suspect community acquired pneumonia. CXR 05/16 shows bilateral pulmonary opacification consistent with pneumonia. CTA chest 05/16 shows no PE or acute aortic disease. Extensive bilateral parenchymal disease appearing similar to ARDS/pulmonary edema. New compared to CT chest 1 week ago. Troponin 0.04 likely secondary to demand ischemia in the setting of respiratory failure requiring BiPap. BNP 176 and no history of CHF. Patient clinically does not appear to be in CHF ; pulmonary edema unlikely BiPap. Patient is agreeable to short term intubation if needed. Empiric antibiotics: Vancomycin day 2 Zosyn day 2 Added Bactrim, day 1 Solumedrol Microbiology: Blood culture peripheral x2 05/16 pending Sputum culture 05/16 pending Respiratory infection panel 05/16 pending Qualifiers: Pneumonia type: due to unspecified organism Laterality: bilateral Qualified Code(s): J18.9 - Pneumonia, unspecified organism (2) Hypoxia Current Visit: Yes Status: Acute Secondary to pneumonia. Plan as above. (3) Fall Current Visit: Yes Status: Acute Fall from standing 5 days prior to ED presentation. Mechanical in nature. No LOC. Anticoagulant: none Antiplatelet: aspirin CT head 05/16 showing no acute intracranial abnormalities. No focal neurologic findings on physical exam. Qualifiers: Encounter type: initial encounter Qualified Code(s): W19.XXXA - Unspecified fall, initial encounter History of Present Illness Consult date: 05/17/17 Requesting physician: Scott Vera Reason for consult: hypoxemia, abnormal CXR/CT Chief complaint: fall History of present illness: Mrs. Miranda, a 76yo female, presented to the ED yesterday after a fall 5days prior with concerns for headache and dyspnea. Fall appears mechanical in nature - patient was in stocking feet and slipped descending wooden stairs. Dyspnea progressive over the preceeding several days. 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 Hx breast cancer. No hx pulmonary disease. Hospital day 2 Patient feels great on BiPap. Better after eating lunch. She has no complaints at this time. She and her son at bedside were in agreement with the current plan of care. Neither had any additional questions. Past Med Surg Social Fam HX - Past Medical History Medical history: cancer (breast) Psychiatric history: anxiety - Past Surgical History Surgical History: hysterectomy, other (mastectomy) - Social History Smoking Status: Never smoker Smokeless Tobacco Status: No Alcohol use: none Drug use: none Medications and Allergies ALPRAZolam [Xanax 1 MG Tablet] 1 mg PO HS 09/03/15 [History] Acetaminophen [Tylenol] 325 mg PO Q6HR PRN 05/16/17 [History] Aspirin Enteric Coated [Aspirin EC] 325 mg PO DAILY 05/16/17 [History] Atorvastatin [Lipitor] 40 mg PO HS 05/16/17 [History] Bimatoprost [Lumigan] 1 drop OP QPM 05/16/17 [History] Ergocalciferol (VITAMIN D2) [Vitamin D2] 50,000 unit PO QWEEK 05/16/17 [History] 3 Allergy/AdvReac Type Severity Reaction Status Date / Time No Known Allergies Allergy Verified 05/12/17 07:32 All Systems: The remainder of the systems were reviewed and are negative - Constitutional Constitutional: fatigue, headache(s), weakness, no chills, no fever(s) - EENT Nose, mouth and throat: no dizziness, no nasal congestion, no sore throat - Cardiovascular Cardiovascular: dyspnea, no chest pain, no irregular heart rhythm, no leg edema , no palpitations - Respiratory Respiratory: no cough, no wheezing - Gastrointestinal Gastrointestinal: no abdominal pain, no cramping, no diarrhea, no hematemesis, no melena, no nausea, no vomiting - Genitourinary Genitourinary: no dysuria - Musculoskeletal Musculoskeletal: weakness, no abnormal gait - Integumentary Integumentary: no erythema, no rash - Neurological Neurological: frequent falls, syncope - Hematologic/Lymphatic Hematologic/Lymphatic: no easy bleeding, no easy bruising Physical Examination Vital Signs: Vital Signs, Last 4 Hours Pulse Resp BP Pulse Ox 05/17/17 12:00 73 28 119/74 92 05/17/17 11:14 43 119/74 96 05/17/17 11:00 77 32 119/74 96 05/17/17 10:00 73 20 113/73 98 05/17/17 09:41 30 102/71 98 General appearance: no acute distress, alert Eyes: nonicteric ENT: oropharynx moist Neck: supple Effort: other (On BiPap) Inspection: normal Auscultation: bilateral: diminished breath sounds (bases), rales (bases) Cardiovascular: regular rate and rhythm Gastrointestinal: normoactive bowel sounds, soft, non-tender, non-distended Integumentary: normal Extremities: no cyanosis, no edema, no clubbing, pink and warm, pulses normal, no ischemia or petechiae Musculoskeletal: no deformities normal mental status, non-focal exam, pupils equal and round mood appropriate Results - Laboratory Findings CBC and BMP: 05/17/17 03:27 05/17/17 03:27 ABG ABG pH 7.41 pH Units (7.32-7.45) 05/17/17 04:56 ABG pCO2 35 mmHg (35-45) 05/17/17 04:56 ABG pO2 102 mmHg (85-104) 05/17/17 04:56 ABG O2 Saturation 98 % (95-98) 05/17/17 04:56 Abnormal lab findings: Abnormal lab results RDW 15.0 % (11.5-14.5) H 05/17/17 03:27 Plt Count 103 K/mcL (140-400) L 05/17/17 03:27 Lymphocytes # 0.4 K/mcL (0.6-4.6) L 05/17/17 03:27 Nucleated RBCs/100 WBC 0.4 /100 WBC (0) H 05/16/17 17:03 ESR 64 mm/hr (0-15) H 05/16/17 17:03 Sodium 133 mEq/L (136-145) L 05/17/17 03:27 Carbon Dioxide 20 mEq/L (23-29) L 05/17/17 03:27 BUN 26 mg/dL (8-23) H 05/17/17 03:27 BUN/Creatinine Ratio 36 (6-26) H 05/17/17 03:27 Glucose 147 mg/dL (70-105) H 05/17/17 03:27 POC Glucose 159 (58-89) H 05/16/17 21:21 Calcium 8.0 mg/dL (8.6-10.3) L 05/17/17 03:27 Direct Bilirubin 0.3 mg/dL (0.0-0.2) H 05/16/17 17:03 AST 54 Units/L (13-39) H 05/16/17 17:03 ALT 78 Units/L (7-52) H 05/16/17 17:03 Alkaline Phosphatase 192 Units/L (34-104) H 05/16/17 17:03 Troponin I 0.04 ng/mL (< 0.04) H* 05/16/17 17:03 B-Natriuretic Peptide 176 pg/mL (Less than 100) H 05/16/17 19:47 Serum Total Protein 6.1 g/dL (6.4-8.9) L 05/16/17 17:03 Albumin 2.9 g/dL (3.5-5.7) L 05/16/17 17:03 Albumin/Globulin Ratio 0.9 (1.1-2.2) L 05/16/17 17:03 Urine Clarity Cloudy (Clear) A 05/16/17 17:21 Ur Specific [place] > 1.030 (1.010-1.025) H 05/16/17 17:21 Urine Protein 100 mg/dL (Neg-Trace) H 05/16/17 17:21 Urine Ketones Trace mg/dL (Negative) H 05/16/17 17:21 Urine Bilirubin Small (Negative) H 05/16/17 17:21 Urine Microscopic WBC 5-15 per hpf (0-3) H 05/16/17 17:21 Ur Squamous Epith Cells Many per lpf (None-Few) H 05/16/17 17:21 Hyaline Casts Many per lpf (None-Few) H 05/16/17 17:21 - Clinical Findings Intake & Output: Intake & Output 05/16/17 05/17/17 05/17/17 23:59 07:59 15:59 Intake Total 710 / 710 Balance 710 / 710 Weight 64.5 kg Consult Discharge Plan - Plan Referrals: Anabel Rasmussen TRAY ROOM WORKER [Primary Care Provider] - <Bart Brennan - Last Filed: 05/17/17 17:28> Date of Encounter: 05/17/17 All Systems: The remainder of the systems were reviewed and are negative Physical Examination Vital Signs: Vital Signs, Last 4 Hours Pulse Resp BP Pulse Ox 05/17/17 17:00 76 18 93 05/17/17 16:14 27 108/70 97 05/17/17 16:00 60 24 108/70 92 05/17/17 15:00 68 32 94/47 94 05/17/17 14:00 86 30 104/67 92 Results - Laboratory Findings CBC and BMP: 05/17/17 03:27 05/17/17 03:27 ABG ABG pH 7.41 pH Units (7.32-7.45) 05/17/17 04:56 ABG pCO2 35 mmHg (35-45) 05/17/17 04:56 ABG pO2 102 mmHg (85-104) 05/17/17 04:56 ABG O2 Saturation 98 % (95-98) 05/17/17 04:56 Abnormal lab findings: Abnormal lab results RDW 15.0 % (11.5-14.5) H 05/17/17 03:27 Plt Count 103 K/mcL (140-400) L 05/17/17 03:27 Lymphocytes # 0.4 K/mcL (0.6-4.6) L 05/17/17 03:27 Nucleated RBCs/100 WBC 0.4 /100 WBC (0) H 05/16/17 17:03 ESR 64 mm/hr (0-15) H 05/16/17 17:03 Sodium 133 mEq/L (136-145) L 05/17/17 03:27 Carbon Dioxide 20 mEq/L (23-29) L 05/17/17 03:27 BUN 26 mg/dL (8-23) H 05/17/17 03:27 BUN/Creatinine Ratio 36 (6-26) H 05/17/17 03:27 Glucose 147 mg/dL (70-105) H 05/17/17 03:27 POC Glucose 196 (58-89) H 05/17/17 17:04 Calcium 8.0 mg/dL (8.6-10.3) L 05/17/17 03:27 Direct Bilirubin 0.3 mg/dL (0.0-0.2) H 05/16/17 17:03 AST 54 Units/L (13-39) H 05/16/17 17:03 ALT 78 Units/L (7-52) H 05/16/17 17:03 Alkaline Phosphatase 192 Units/L (34-104) H 05/16/17 17:03 Troponin I 0.04 ng/mL (< 0.04) H* 05/16/17 17:03 B-Natriuretic Peptide 176 pg/mL (Less than 100) H 05/16/17 19:47 Serum Total Protein 6.1 g/dL (6.4-8.9) L 05/16/17 17:03 Albumin 2.9 g/dL (3.5-5.7) L 05/16/17 17:03 Albumin/Globulin Ratio 0.9 (1.1-2.2) L 05/16/17 17:03 Urine Clarity Cloudy (Clear) A 05/16/17 17:21 Ur Specific [place] > 1.030 (1.010-1.025) H 05/16/17 17:21 Urine Protein 100 mg/dL (Neg-Trace) H 05/16/17 17:21 Urine Ketones Trace mg/dL (Negative) H 05/16/17 17:21 Urine Bilirubin Small (Negative) H 05/16/17 17:21 Urine Microscopic WBC 5-15 per hpf (0-3) H 05/16/17 17:21 Ur Squamous Epith Cells Many per lpf (None-Few) H 05/16/17 17:21 Hyaline Casts Many per lpf (None-Few) H 05/16/17 17:21 - Clinical Findings Intake & Output: Intake & Output 05/17/17 05/17/17 05/17/17 07:59 15:59 23:59 Intake Total 710 / 710 Output Total 300 / 300 Balance 410 / 410 Weight 64.5 kg - Attending Attestation I examined this patient and my medical decision-making was reviewed with the Resident Physician. I agree with the documented findings, disposition and treatment plan as described except to the extent set forth below. Patient seen and examined. Labs, radiology, chart personally reviewed. 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 Patient on appropriate dose of systemic steroids. Differential diagnosis is broad tear with reviewing her CT chest from infectious versus inflammatory versus malignancy but less likely. If patient does not shows any signs of improvement then she will need bronchoscopy and even open lung biopsy. Due to her hypoxia would recommend to keep patient in ICU for close monitoring since her condition could rapidly deteriorate. Cardiovascular: stable. Attempting diuresis is reasonable. GI: Nutrition per dietary and GI prophylaxis per routine Heme: DVT prophylaxis per routine ID: Continue antibiotics and plan to de-escalation Renal; urine out put and renal funtion reviewed Endorcine: blood glucose is monitored Lines: all lines checked and no evidence of infections Skin: skin care to prevent pressure ulcers per nursing routine care I spent 32 min of Critical Care time with this patient. It involved decision making of high complexity to assess, manipulate, and support vital organ system failure and/or to prevent further life threatening deterioration of the patient' s condition. The time involved in the performance of separately reportable procedures was not counted toward critical care time.
[2017-05-17] MEDS: Dexmedetomidine HCl 400 MCG/100 ML MLS IVC SCH (13:16)
[2017-05-17] MEDS: Piperacillin/Tazobactam 3.375 GM in 0.9 % Sodium Chloride Mini Bag 100 ML IVPB SCH ×2 (13:38→21:12)
[2017-05-17 13:39] LABS: Adenovirus Not Detected (Not Detect); Bordetella Pertussis Not Detected (Not Detect); Chlamydophila pneumoniae Not Detected (Not Detect); Coronavirus 229E Not Detected (Not Detect); Coronavirus HKU1 Not Detected (Not Detect); Coronavirus NL63 Not Detected (Not Detect); Coronavirus OC43 Not Detected (Not Detect); Human Metapneumovirus Not Detected (Not Detect); Human Rhinovirus/Enterovirus Not Detected (Not Detect); Influenza A Subtype 2009 H1 Not Detected (Not Detect); Influenza A Untypeable Not Detected (Not Detect); Influenza B Not Detected (Not Detect); Mycoplasma pneumoniae Not Detected (Not Detect); Parainfluenza Virus 1 Not Detected (Not Detect); Parainfluenza Virus 2 Not Detected (Not Detect); Parainfluenza Virus 3 Not Detected (Not Detect); Parainfluenza Virus 4 Not Detected (Not Detect); Respiratory Syncytial Virus Not Detected (Not Detect)
[2017-05-17] MEDS ORDERED: Dextrose Gel 15 GM/37.5 ML TUBE PO PRN ×2 (14:46)
[2017-05-17] MEDS ORDERED: *HR* Dextrose 50 % in Water (Syg) 50 ML SYRINGE IVP PRN (14:46)
[2017-05-17] MEDS ORDERED: D5% in Water 1,000 ML IVC PRN (14:46)
[2017-05-17] MEDS: WATER IVPB SCH ×2 (15:38→23:30)
[2017-05-17] MEDS: TRIMETH IVPB SCH ×2 (15:38→23:30)
[2017-05-17] MEDS: SULFAMETHOXAZOLE IVPB SCH ×2 (15:38→23:30)
[2017-05-17] MEDS: D5 IVPB SCH ×2 (15:38→23:30)
[2017-05-17] MEDS: Latanoprost 2.5 ML BOTTLE BOTH EYES SCH ×2 (17:06→21:13)
[2017-05-17] MEDS: Insulin LISPRO 300 UNITS/3 ML VIAL SQ SCH ×2 (17:06→23:31)
[2017-05-18] MEDS: Ipratropium/Albuterol Neb 3 ML IH SCH ×6 (03:23→23:55)
[2017-05-18] MEDS: Piperacillin/Tazobactam 3.375 GM in 0.9 % Sodium Chloride Mini Bag 100 ML IVPB SCH ×3 (05:37→20:10)
[2017-05-18] MEDS: *HR* Heparin 5,000 UNIT/ML VIAL SQ SCH ×3 (05:37→21:54)
[2017-05-18] MEDS: Insulin LISPRO 300 UNITS/3 ML VIAL SQ SCH ×3 (05:38→17:00)
[2017-05-18] MEDS: methylPREDNISolone 125 MG/2 ML VIAL IVP SCH ×2 (07:19→15:31)
[2017-05-18] MEDS: Aspirin Enteric Coated 325 MG Tablet PO SCH (07:20)
[2017-05-18] MEDS: SULFAMETHOXAZOLE IVPB SCH ×2 (07:28→16:16)
[2017-05-18] MEDS: WATER IVPB SCH ×2 (07:28→16:16)
[2017-05-18] MEDS: D5 IVPB SCH ×2 (07:28→16:16)
[2017-05-18] MEDS: TRIMETH IVPB SCH ×2 (07:28→16:16)
[2017-05-18 08:03] LABS: ABG Base Excess 1 mEq/L (-2 to 3); ABG HCO3 24 mEq/L (21-27); ABG Oxygen Saturation 96 % (95-98); ABG PCO2 32 mmHg (35-45); ABG PH 7.48 pH Units (7.32-7.45); ABG PO2 73 mmHg (85-104); ABG TCO2 25 mEq/L (20-26)
[2017-05-18] MEDS ORDERED: Aminoglycoside Consult 1 EACH MC ONE (08:03)
--- NOTE | 2017-05-18 08:09 | Pulmonology Progress Note ---
<Reuben Yanes - Last Filed: 05/18/17 11:12> Date of Encounter: 05/18/17 Time of Encounter: 08:30 Assessment and Plan (1) Pneumonia Current Visit: Yes Status: Acute Diffuse bilateral pneumonia. Clinically suspect community acquired pneumonia. CXR 05/16 shows bilateral pulmonary opacification consistent with pneumonia. CTA chest 05/16 shows no PE or acute aortic disease. Extensive bilateral parenchymal disease appearing similar to ARDS/pulmonary edema. New compared to CT chest 1 week ago. Troponin 0.04 likely secondary to demand ischemia in the setting of respiratory failure requiring BiPap. BNP 176 and no history of CHF. Patient clinically does not appear to be in CHF ; pulmonary edema unlikely BiPap. Patient is agreeable to short term intubation if needed. Empiric antibiotics: Vancomycin day 3 Zosyn day 3 Bactrim day 2 Solumedrol Microbiology: Nasopharyngeal influenza swab (-) Blood culture peripheral x2 05/16 preliminarily (-) Sputum culture 05/16 pending Respiratory infection panel 05/16 (-) Qualifiers: Pneumonia type: due to unspecified organism Laterality: bilateral Qualified Code(s): J18.9 - Pneumonia, unspecified organism (2) Hypoxia Current Visit: Yes Status: Acute Secondary to pneumonia. Plan as above. (3) Fall Current Visit: Yes Status: Acute Fall from standing 5 days prior to ED presentation. Mechanical in nature. No LOC. Anticoagulant: none Antiplatelet: aspirin CT head 05/16 showing no acute intracranial abnormalities. No focal neurologic findings on physical exam. Qualifiers: Encounter type: initial encounter Qualified Code(s): W19.XXXA - Unspecified fall, initial encounter Subjective Principal diagnosis: acute respiratory failure Interval history: Hospital day 3 Patient tolerated BiPap well overnight. Lung sounds unchanged. She appears fatigued and tired. Concern for the need for intubation this morning. A discussion between the patient, Dr. Brennan, myself, Zane DUPREE, patient's daughter and son was had regarding the patient's progressively increasing work of breathing while on BiPap. In the context of the patient's severe pneumonia and current clinical picture, we discussed the likelihood of intubation today and the need to remain intubated beyond 3-5 days; specifically discussed the likelihood of duration of intubation 7-10 days or more. We discussed, in the event the patient cannot be safely extubated, the next step is ventilator dependent tracheostomy. We discussed the patient will likely be difficult to extubate. We discussed the option to forgo intubation and persist on BiPap as long as tolerable. Patient and daughter and son expressed understanding. Patient prefers intubation now. She was clear that her limit on duration of intubation is 7 days if she is not continuing to clinically improve at that time. Should she continue to clinically improve, her daughter ([facility]) will be making her medical decisions. She does not wish for tracheostomy. She is otherwise comfortable. Patient had her liquid breakfast at 08:30. Will continue to closely monitor and intubate immediately if needed, preferably delay intubation until 11:30-12: 00 to minimize risk of emesis and aspiration. Concern for the patient's low pulmonary reserve and abrupt decompensation when apnic during ET placement. Objective PUL Vital signs: Last Vital Signs Temp 98.4 F 05/18/17 04:00 Pulse 53 05/18/17 07:00 Resp 30 05/18/17 07:00 BP 126/64 05/18/17 07:00 Pulse Ox 94 05/18/17 07:00 General appearance: alert, appears uncomfortable Eyes: nonicteric ENT: oropharynx moist Neck: supple Effort: normal Auscultation: bilateral: diminished breath sounds, rales Cardiovascular: regular rate and rhythm Gastrointestinal: normoactive bowel sounds, soft, non-tender, non-distended Integumentary: normal Extremities: no cyanosis, no edema, no clubbing, pink and warm, pulses normal, no ischemia or petechiae Musculoskeletal: no deformities normal mental status, pupils equal and round mood appropriate Results - Laboratory Findings CBC and BMP: 05/17/17 03:27 05/18/17 08:35 ABG ABG pH 7.48 pH Units (7.32-7.45) H 05/18/17 07:45 ABG pCO2 32 mmHg (35-45) L 05/18/17 07:45 ABG pO2 73 mmHg (85-104) L 05/18/17 07:45 ABG O2 Saturation 96 % (95-98) 05/18/17 07:45 Abnormal lab findings: Abnormal lab results RDW 15.0 % (11.5-14.5) H 05/17/17 03:27 Plt Count 103 K/mcL (140-400) L 05/17/17 03:27 Lymphocytes # 0.4 K/mcL (0.6-4.6) L 05/17/17 03:27 Nucleated RBCs/100 WBC 0.4 /100 WBC (0) H 05/16/17 17:03 ESR 64 mm/hr (0-15) H 05/16/17 17:03 ABG pH 7.48 pH Units (7.32-7.45) H 05/18/17 07:45 ABG pCO2 32 mmHg (35-45) L 05/18/17 07:45 ABG pO2 73 mmHg (85-104) L 05/18/17 07:45 Sodium 133 mEq/L (136-145) L 05/17/17 03:27 Carbon Dioxide 20 mEq/L (23-29) L 05/17/17 03:27 BUN 26 mg/dL (8-23) H 05/17/17 03:27 BUN/Creatinine Ratio 36 (6-26) H 05/17/17 03:27 Glucose 147 mg/dL (70-105) H 05/17/17 03:27 POC Glucose 136 (58-89) H 05/18/17 05:34 Calcium 8.0 mg/dL (8.6-10.3) L 05/17/17 03:27 Direct Bilirubin 0.3 mg/dL (0.0-0.2) H 05/16/17 17:03 AST 54 Units/L (13-39) H 05/16/17 17:03 ALT 78 Units/L (7-52) H 05/16/17 17:03 Alkaline Phosphatase 192 Units/L (34-104) H 05/16/17 17:03 Troponin I 0.04 ng/mL (< 0.04) H* 05/16/17 17:03 B-Natriuretic Peptide 176 pg/mL (Less than 100) H 05/16/17 19:47 Serum Total Protein 6.1 g/dL (6.4-8.9) L 05/16/17 17:03 Albumin 2.9 g/dL (3.5-5.7) L 05/16/17 17:03 Albumin/Globulin Ratio 0.9 (1.1-2.2) L 05/16/17 17:03 Urine Clarity Cloudy (Clear) A 05/16/17 17:21 Ur Specific [place] > 1.030 (1.010-1.025) H 05/16/17 17:21 Urine Protein 100 mg/dL (Neg-Trace) H 05/16/17 17:21 Urine Ketones Trace mg/dL (Negative) H 05/16/17 17:21 Urine Bilirubin Small (Negative) H 05/16/17 17:21 Urine Microscopic WBC 5-15 per hpf (0-3) H 05/16/17 17:21 Ur Squamous Epith Cells Many per lpf (None-Few) H 05/16/17 17:21 Hyaline Casts Many per lpf (None-Few) H 05/16/17 17:21 - Clinical Findings Intake & Output: Intake & Output 05/17/17 05/18/17 05/18/17 23:59 07:59 15:59 Intake Total 980 / 980 620 / 620 Output Total 200 / 200 450 / 450 Balance 780 / 780 170 / 170 Consult Discharge Plan - Plan Referrals: Anabel Rasmussen, LEGAL EXECUTIVE ASSISTANT [Primary Care Provider] - <Bart Brennan - Last Filed: 05/18/17 17:09> Date of Encounter: 05/18/17 Objective PUL Vital signs: Last Vital Signs Temp 97.6 F 05/18/17 16:00 Pulse 54 05/18/17 17:00 Resp 16 05/18/17 17:00 BP 106/67 05/18/17 17:00 Pulse Ox 92 05/18/17 17:00 Ventilator Settings Ventilator Settings: Ventilator Settings, Last 8 Hours Ventilator Mode VC+ Ventilator Mode VC+ Ventilator Mode VC+ Ventilator Mode VC+ Ventilator Mode VC+ Ventilator Mode VC+ Ventilator Mode VC+ Ventilator Mode VC+ Ventilator Tidal Volume 380 Setting Ventilator Tidal Volume 380 Setting Ventilator Tidal Volume 380 Setting Ventilator Tidal Volume 380 Setting Ventilator Tidal Volume 380 Setting Ventilator Tidal Volume 400 Setting Ventilator Tidal Volume 400 Setting Ventilator Tidal Volume 380 Setting Ventilator Respiratory Rate 16 Setting Ventilator Respiratory Rate 16 Setting Ventilator Respiratory Rate 16 Setting Ventilator Respiratory Rate 16 Setting Ventilator Respiratory Rate 16 Setting Ventilator Respiratory Rate 16 Setting Ventilator Respiratory Rate 16 Setting Ventilator Respiratory Rate 16 Setting Actual Respiratory Rate 16 Actual Respiratory Rate 16 Actual Respiratory Rate 16 Actual Respiratory Rate 16 Actual Respiratory Rate 16 Actual Respiratory Rate 23 Actual Respiratory Rate 23 Actual Respiratory Rate 23 Positive End Expiratory 10 Pressure Positive End Expiratory 10 Pressure Positive End Expiratory 10 Pressure Positive End Expiratory 10 Pressure Positive End Expiratory 10 Pressure Positive End Expiratory 8 Pressure Positive End Expiratory 8 Pressure Positive End Expiratory 8 Pressure Peak Inspiratory Airway 35 Pressure Peak Inspiratory Airway 34 Pressure Peak Inspiratory Airway 36 Pressure Peak Inspiratory Airway 33 Pressure Peak Inspiratory Airway 36 Pressure Peak Inspiratory Airway 22 Pressure Peak Inspiratory Airway 22 Pressure Peak Inspiratory Airway 29 Pressure Results - Laboratory Findings CBC and BMP: 05/18/17 08:35 05/18/17 08:35 ABG ABG pH 7.41 pH Units (7.32-7.45) 05/18/17 14:29 ABG pCO2 38 mmHg (35-45) 05/18/17 14:29 ABG pO2 222 mmHg (85-104) H 05/18/17 14:29 ABG O2 Saturation 100 % (95-98) H 05/18/17 14:29 Abnormal lab findings: Abnormal lab results RDW 15.4 % (11.5-14.5) H 05/18/17 08:35 Plt Count 88 K/mcL (140-400) L 05/18/17 08:35 Band Neutrophils % 8.0 % (0-4) H 05/18/17 08:35 Neutrophils # 9.9 K/mcL (1.6-8.9) H 05/18/17 08:35 Lymphocytes # 0.2 K/mcL (0.6-4.6) L 05/18/17 08:35 Nucleated RBCs/100 WBC 0.4 /100 WBC (0) H 05/16/17 17:03 Platelet Estimate Decreased (Normal) L 05/18/17 08:35 Immature Plt Fraction 9.5 % (1.1-6.1) H 05/18/17 08:35 Matteo Cells 2+ (Not Present) A 05/18/17 08:35 ESR 64 mm/hr (0-15) H 05/16/17 17:03 ABG pO2 222 mmHg (85-104) H 05/18/17 14:29 ABG O2 Saturation 100 % (95-98) H 05/18/17 14:29 Sodium 134 mEq/L (136-145) L 05/18/17 08:35 Carbon Dioxide 20 mEq/L (23-29) L 05/18/17 08:35 Glucose 228 mg/dL (70-105) H 05/18/17 08:35 POC Glucose 158 (58-89) H 05/18/17 16:59 Calcium 7.6 mg/dL (8.6-10.3) L 05/18/17 08:35 Direct Bilirubin 0.3 mg/dL (0.0-0.2) H 05/16/17 17:03 AST 54 Units/L (13-39) H 05/16/17 17:03 ALT 78 Units/L (7-52) H 05/16/17 17:03 Alkaline Phosphatase 192 Units/L (34-104) H 05/16/17 17:03 Troponin I 0.04 ng/mL (< 0.04) H* 05/16/17 17:03 B-Natriuretic Peptide 176 pg/mL (Less than 100) H 05/16/17 19:47 Serum Total Protein 6.1 g/dL (6.4-8.9) L 05/16/17 17:03 Albumin 2.9 g/dL (3.5-5.7) L 05/16/17 17:03 Albumin/Globulin Ratio 0.9 (1.1-2.2) L 05/16/17 17:03 Urine Clarity Cloudy (Clear) A 05/16/17 17:21 Ur Specific [place] > 1.030 (1.010-1.025) H 05/16/17 17:21 Urine Protein 100 mg/dL (Neg-Trace) H 05/16/17 17:21 Urine Ketones Trace mg/dL (Negative) H 05/16/17 17:21 Urine Bilirubin Small (Negative) H 05/16/17 17:21 Urine Microscopic WBC 5-15 per hpf (0-3) H 05/16/17 17:21 Ur Squamous Epith Cells Many per lpf (None-Few) H 05/16/17 17:21 Hyaline Casts Many per lpf (None-Few) H 05/16/17 17:21 Vancomycin Trough 6.0 mcg/mL (10-20) L 05/18/17 08:35 - Clinical Findings Intake & Output: Intake & Output 05/18/17 05/18/17 05/18/17 07:59 15:59 23:59 Intake Total 620 / 620 1375 / 1375 12 12 Output Total 450 / 450 850 / 850 150 / 150 Balance 170 / 170 525 / 525 -138 / -138 - Attending Attestation I examined this patient and my medical decision-making was reviewed with the Resident Physician. I agree with the documented findings, disposition and treatment plan as described except to the extent set forth below. Patient seen and examined. Labs, radiology, chart personally reviewed. 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 Pulmonary: Overall patient was getting tired and more respiratory distress and decision had to be made about intubation and she agreed for short-term intubation and more to be decided based on her clinical outcome. Patient has pneumonitis-like picture and ARDS as a result. After intubation patient was placed on the low tidal volume lung protective strategy and primarily managing with PEEP after checking stress index. We will plan for bronchoscopy. Cardiovascular: stable GI: Nutrition per dietary and GI prophylaxis per routine Heme: DVT prophylaxis per routine ID: Continue antibiotics and plan to de-escalation Renal; urine out put and renal funtion reviewed Endorcine: blood glucose is monitored Lines: all lines checked and no evidence of infections Skin: skin care to prevent pressure ulcers per nursing routine care I spent 45 min of Critical Care time with this patient. It involved decision making of high complexity to assess, manipulate, and support vital organ system failure and/or to prevent further life threatening deterioration of the patient' s condition. The time involved in the performance of separately reportable procedures was not counted toward critical care time.
[2017-05-18] MEDS ORDERED: *HR* Etomidate 20 MG/10 ML AMPUL IVP ONE (08:11)
[2017-05-18] MEDS ORDERED: *HR* LORazepam 2 MG/ML VIAL IVP ONE (08:11)
[2017-05-18] MEDS ORDERED: *HR* Midazolam HCl 5 MG/5 ML VIAL IVP ONE (08:11)
[2017-05-18 09:08] LABS: Hemoglobin 13.2 g/dL (11.5-15.4)
[2017-05-18 09:10] LABS: Hematocrit 39.8 % (35.3-44.9); Immature Platelets 9.5 % (1.1-6.1); Mean Corpuscular HGB Conc 33.2 g/dL (31.6-35.5); Mean Corpuscular Volume 96.6 fL (83.0-100.0); Monocytes # 0.2 K/mcL (0.0-1.3); Red Blood Count 4.12 M/mcL (3.82-4.97); Red Cell Distribution Width 15.4 % (11.5-14.5)
[2017-05-18 09:38] LABS: BUN/Creatinine Ratio 26 (6-26); Blood Urea Nitrogen 18 mg/dL (8-23); Calcium 7.6 mg/dL (8.6-10.3); Carbon Dioxide 20 mEq/L (23-29); Chloride 104 mEq/L (98-107); Glucose 228 mg/dL (70-105); Osmolality,Calculated 287 (280-300); Potassium 4.2 mEq/L (3.5-5.1); Sodium 134 mEq/L (136-145); eGFR For African Americans > 60 (> 60); eGFR For Non-African Americans > 60 (> 60)
[2017-05-18 12:34] LABS: Platelet Count 88 K/mcL (140-400)
[2017-05-18 12:38] LABS: Lymphocytes # 0.2 K/mcL (0.6-4.6); Neutrophils # 9.9 K/mcL (1.6-8.9)
[2017-05-18 12:39] LABS: Burr Cells 2+ (Not Present); Platelet Estimate Decreased (Normal)
[2017-05-18] MEDS ORDERED: Lacri-Lube 3.5 GM TUBE BOTH EYES PRN (12:39)
--- NOTE | 2017-05-18 13:07 | Procedure Note ---
<Reuben Yanes - Last Filed: 05/18/17 12:52> Date of procedure: 05/18/17 Pre-op diagnosis: Acute respiratory failure Post-op diagnosis: same Procedure: A time-out was completed verifying correct patient, procedure, positioning, and special equipment. The patient was placed in a flat position, her upper partial denture was removed, and she was pre-oxygenated on BiPap with FiO2 100%. Sedation was obtained using Propofol 200mg, Etomidate 20mg, and Versed 5mg. The patient was easily ventilated using an ambu bag with oral-pharyngeal airway. The GLIDESCOPE was used and inserted into the oropharynx at which time there was a Grade 2 view of the vocal cords. A 7.5-trinidadian endotracheal tube was inserted and visualized going through the vocal cords. The stylette was removed. Colorimetric change was visualized on the CO2 meter. Breath sounds were heard in both lung olivera equally. The endotracheal tube was placed at 22 cm, measured at the Lips. The initial ET tube was not holding cuff pressure after placement. A second ET tube was prepared and cuff tested. A gum-elastic bougie was placed down the first ET tube to a pre-estimated depth of 42-45cm. The first ET tube was removed with care taken for the bougie to remain in place relative to the rocky. The second ET tube was slid over the already positioned bougie; there was difficulty passing the second ET tube past the epiglottis. All equipment was removed from the patient's oropharynx, the oral-pharyngeal airway replaced, and the patient was bag-mask ventilated. An additional 100mg of propofol was given. The GLIDESCOPE was used and inserted into the oropharynx at which time there was a Grade 1-2 view of the vocal cords. This second 7.5-trinidadian endotracheal tube was inserted and visualized going through the vocal cords. The stylette was removed. Colorimetric change was visualized on the CO2 meter. Breath sounds were heard in both lung olivera equally. The endotracheal tube was placed at 23 cm, measured at the Lips. Though patient's pulmonary reserve is compromised from her medical condition, at no time did her pulse oxygenation drop below low 80's. After intubation was completed, nursing placed an OG tube to intermittent wall suction. Dr. Brennan was present for the entire procedure. A chest x-ray was ordered to assess for pneumothorax and verify endotrachealtube placement. A KUB x-ray was ordered to assess OG tube placement. Estimated Blood Loss: 0mL Patient tolerated the procedure well. No additional complications except those mentioned above. Patient height: 67" Predicted body weight (PBW), female = 52.4 Tidal volume at 8mL/kg PBW = 419.2 Tidal volume at 6mL/kg PBW = 314.4 Initial vent settings: VT 400mL RR 18 FiO2 60% PEEP 8 ABG in 1 hour monitor Pplat for goal <30 cm H20 Anesthesia: IV sedation Surgeon: Reuben Yanes Was there an recycling assistant present: Yes Mineral Technologist: Bart Brennan Estimated blood loss (cc): 0 IV fluids (cc): 0 Urine output (cc): 0 Specimen: 0 Pathology: none sent Condition: critical Disposition: ICU <Bart Brennan - Last Filed: 05/18/17 17:06> Procedure: I examined this patient and my medical decision-making was reviewed with the Resident Physician. I agree with the documented findings, disposition and treatment plan as described except to the extent set forth below. I have personally supervised resident for the entire procedure without immediate complications and family notified.
[2017-05-18] MEDS: Dexmedetomidine HCl 400 MCG/100 ML MLS IVC SCH (13:08)
[2017-05-18] MEDS: FentaNYL (PF) 1,000 MCG in 0.9 % Sodium Chloride 80 ML IVC SCH ×2 (13:17→18:04)
[2017-05-18] MEDS: Pantoprazole 40 MG VIAL IVP SCH (13:24)
[2017-05-18 14:32] LABS: ABG Base Excess -1 mEq/L (-2 to 3); ABG HCO3 24 mEq/L (21-27); ABG Oxygen Saturation 100 % (95-98); ABG PCO2 38 mmHg (35-45); ABG PH 7.41 pH Units (7.32-7.45); ABG PO2 222 mmHg (85-104); ABG TCO2 25 mEq/L (20-26); Blood Gas PEEP 10 cm H2O; Blood Gas Respiration Rate 16; Blood Gas VT 380 cc
[2017-05-18] MEDS: Lacri-Lube 3.5 GM TUBE BOTH EYES SCH ×2 (15:33→20:06)
[2017-05-18] MEDS: Latanoprost 2.5 ML BOTTLE BOTH EYES SCH (17:01)
[2017-05-18] MEDS: Chlorhexidine Rinse 15 ML MOUTHWASH MM SCH (20:06)
[2017-05-18] MEDS: ALPRAZolam 1 MG TABLET PO SCH (20:07)
[2017-05-19] MEDS: WATER IVPB SCH ×2 (00:18→07:39)
[2017-05-19] MEDS: SULFAMETHOXAZOLE IVPB SCH ×2 (00:18→07:39)
[2017-05-19] MEDS: D5 IVPB SCH ×2 (00:18→07:39)
[2017-05-19] MEDS: TRIMETH IVPB SCH ×2 (00:18→07:39)
[2017-05-19] MEDS: methylPREDNISolone 125 MG/2 ML VIAL IVP SCH ×4 (00:19→23:56)
[2017-05-19] MEDS: Lacri-Lube 3.5 GM TUBE BOTH EYES SCH ×6 (00:19→20:40)
[2017-05-19] MEDS: Insulin LISPRO 300 UNITS/3 ML VIAL SQ SCH ×5 (00:19→20:39)
[2017-05-19] MEDS: FentaNYL (PF) 1,000 MCG in 0.9 % Sodium Chloride 80 ML IVC SCH (00:50)
[2017-05-19 03:51] LABS: Basophils % 0.4 %; Hematocrit 36.8 % (35.3-44.9); Hemoglobin 11.6 g/dL (11.5-15.4); Immature Granulocytes % 5.1 % (0-4); Immature Platelets 9.6 % (1.1-6.1); Lymphocytes # 0.4 K/mcL (0.6-4.6); Lymphocytes % 4.9 %; Mean Corpuscular HGB Conc 31.5 g/dL (31.6-35.5); Mean Corpuscular Hemoglobin 31.7 pg (28.0-33.3); Mean Corpuscular Volume 100.5 fL (83.0-100.0); Mean Platelet Volume 11.1 fL (9.4-12.4); Monocytes # 0.3 K/mcL (0.0-1.3); Monocytes % 3.8 %; Neutrophils # 7.7 K/mcL (1.6-8.9); Platelet Count 100 K/mcL (140-400); Red Blood Count 3.66 M/mcL (3.82-4.97); Red Cell Distribution Width 15.9 % (11.5-14.5); Segmented Neutrophils % 85.8 %
[2017-05-19 04:06] LABS: Calcium 7.2 mg/dL (8.6-10.3); Potassium 4.1 mEq/L (3.5-5.1)
[2017-05-19] MEDS: Ipratropium/Albuterol Neb 3 ML IH SCH ×6 (04:09→23:05)
[2017-05-19 04:49] LABS: ABG Base Excess -4 mEq/L (-2 to 3); ABG HCO3 24 mEq/L (21-27); ABG Oxygen Saturation 100 % (95-98); ABG PCO2 59 mmHg (35-45); ABG PH 7.23 pH Units (7.32-7.45); ABG PO2 449 mmHg (85-104); ABG TCO2 26 mEq/L (20-26); Blood Gas Modality VC; Blood Gas PEEP 10 cm H2O; Blood Gas Respiration Rate 16; Blood Gas VT 380 cc
[2017-05-19] MEDS: *HR* Heparin 5,000 UNIT/ML VIAL SQ SCH ×3 (05:35→22:10)
[2017-05-19] MEDS: Piperacillin/Tazobactam 3.375 GM in 0.9 % Sodium Chloride Mini Bag 100 ML IVPB SCH ×3 (05:35→22:09)
[2017-05-19] MEDS ORDERED: *HR* Midazolam HCl 2 MG/2 ML VIAL ONE (07:07)
[2017-05-19] MEDS ORDERED: *HR* Midazolam HCl 2 MG/2 ML VIAL IVP ONE ×2 (07:09→07:45)
[2017-05-19] MEDS ORDERED: *HR* Midazolam HCl 2 MG/2 ML VIAL IVP PRN (07:45)
[2017-05-19] MEDS: Pantoprazole 40 MG VIAL IVP SCH (07:53)
[2017-05-19] MEDS: Chlorhexidine Rinse 15 ML MOUTHWASH MM SCH ×2 (07:53→20:39)
[2017-05-19] MEDS: Aspirin Enteric Coated 325 MG Tablet PO SCH (08:00)
[2017-05-19] MEDS ORDERED: *HR* Midazolam HCl 5 MG/5 ML VIAL IVP ONE ×2 (09:25→09:29)
[2017-05-19] MEDS: FentaNYL (PF) 2,500 MCG in EMPTY BAG 1 EACH IVPB SCH (09:50)
--- NOTE | 2017-05-19 10:15 | Electrocardiograph Report ---
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
[2017-05-19] MEDS ORDERED: Furosemide 40 MG/4 ML VIAL IVP ONE (10:36)
--- NOTE | 2017-05-19 11:59 | Pulmonology Progress Note ---
<Reuben Yanes - Last Filed: 05/19/17 12:10> Date of Encounter: 05/19/17 Time of Encounter: 11:57 Assessment and Plan (1) Pneumonia Current Visit: Yes Status: Acute Diffuse bilateral pneumonia. Clinically suspect community acquired pneumonia. CTA chest 05/16 shows no PE or acute aortic disease. Extensive bilateral parenchymal disease appearing similar to ARDS/pulmonary edema. New compared to CT chest 1 week ago. CXR improved this AM vs yesterday. Intubated. Empiric antibiotics: Vancomycin day 4 Zosyn day 4 Bactrim day 3 Solumedrol Microbiology: Nasopharyngeal influenza swab (-) Blood culture peripheral x2 05/16 preliminarily (-) Sputum culture 05/16 prelim moderate yeast with bacteria observed. Suspect yeast contamination. Respiratory infection panel 05/16 (-) Qualifiers: Pneumonia type: due to unspecified organism Laterality: bilateral Lung location: unspecified part of lung Qualified Code(s): J18.9 - Pneumonia, unspecified organism (2) Hypoxia Current Visit: Yes Status: Acute Secondary to pneumonia. Plan as above. (3) Fall Current Visit: Yes Status: Acute Fall from standing 5 days prior to ED presentation. Mechanical in nature. No LOC. Anticoagulant: none Antiplatelet: aspirin CT head 05/16 showing no acute intracranial abnormalities. No focal neurologic findings on physical exam. Qualifiers: Encounter type: initial encounter Qualified Code(s): W19.XXXA - Unspecified fall, initial encounter Subjective Principal diagnosis: acute respiratory failure Interval history: Hospital day 4 No acute events overnight. CXR this AM appears improved over yesterday. Plan for bronchoscopy today. Objective PUL Vital signs: Last Vital Signs Temp 97.5 F L 05/19/17 07:00 Pulse 63 05/19/17 11:00 Resp 18 05/19/17 11:33 BP 103/60 05/19/17 11:33 Pulse Ox 98 05/19/17 11:33 General appearance: no acute distress Eyes: nonicteric ENT: oropharynx moist Neck: supple Effort: normal Auscultation: right: rales, bilateral: diminished breath sounds, wheezes (Left end inspiratory wheeze. Right inspiratory wheeze.) Cardiovascular: regular rate and rhythm Gastrointestinal: normoactive bowel sounds, soft, non-distended Integumentary: normal Extremities: no cyanosis, no edema, no clubbing, pink and warm, pulses normal, no ischemia or petechiae Musculoskeletal: no deformities pupils equal and round, unable to assess due to mental status Ventilator Settings Ventilator Settings: Ventilator Settings, Last 8 Hours Ventilator Mode VC+ Ventilator Mode VC+ Ventilator Mode VC+ Ventilator Mode VC+ Ventilator Mode VC+ Ventilator Mode VC+ Ventilator Mode VC+ Ventilator Mode VC+ Ventilator Mode VC+ Ventilator Mode VC+ Ventilator Mode VC+ Ventilator Mode VC+ Ventilator Mode VC+ Ventilator Tidal Volume 400 Setting Ventilator Tidal Volume 400 Setting Ventilator Tidal Volume 400 Setting Ventilator Tidal Volume 400 Setting Ventilator Tidal Volume 400 Setting Ventilator Tidal Volume 400 Setting Ventilator Tidal Volume 380 Setting Ventilator Tidal Volume 380 Setting Ventilator Tidal Volume 380 Setting Ventilator Tidal Volume 380 Setting Ventilator Tidal Volume 380 Setting Ventilator Tidal Volume 380 Setting Ventilator Tidal Volume 380 Setting Ventilator Respiratory Rate 16 Setting Ventilator Respiratory Rate 16 Setting Ventilator Respiratory Rate 16 Setting Ventilator Respiratory Rate 16 Setting Ventilator Respiratory Rate 16 Setting Ventilator Respiratory Rate 16 Setting Ventilator Respiratory Rate 16 Setting Ventilator Respiratory Rate 16 Setting Ventilator Respiratory Rate 16 Setting Ventilator Respiratory Rate 16 Setting Ventilator Respiratory Rate 16 Setting Ventilator Respiratory Rate 16 Setting Ventilator Respiratory Rate 16 Setting Actual Respiratory Rate 16 Actual Respiratory Rate 16 Actual Respiratory Rate 16 Actual Respiratory Rate 48 Actual Respiratory Rate 47 Actual Respiratory Rate 37 Actual Respiratory Rate 29 Actual Respiratory Rate 16 Actual Respiratory Rate 16 Actual Respiratory Rate 16 Actual Respiratory Rate 16 Actual Respiratory Rate 18 Positive End Expiratory 8 Pressure Positive End Expiratory 8 Pressure Positive End Expiratory 8 Pressure Positive End Expiratory 8 Pressure Positive End Expiratory 8 Pressure Positive End Expiratory 8 Pressure Positive End Expiratory 8 Pressure Positive End Expiratory 10 Pressure Positive End Expiratory 10 Pressure Positive End Expiratory 10 Pressure Positive End Expiratory 10 Pressure Positive End Expiratory 10 Pressure Positive End Expiratory 10 Pressure Peak Inspiratory Airway 27 Pressure Peak Inspiratory Airway 26 Pressure Peak Inspiratory Airway 27 Pressure Peak Inspiratory Airway 27 Pressure Peak Inspiratory Airway 26 Pressure Peak Inspiratory Airway 29 Pressure Peak Inspiratory Airway 30 Pressure Peak Inspiratory Airway 33 Pressure Peak Inspiratory Airway 33 Pressure Peak Inspiratory Airway 33 Pressure Peak Inspiratory Airway 35 Pressure Peak Inspiratory Airway 41 Pressure Results - Laboratory Findings CBC and BMP: 05/19/17 03:35 05/19/17 03:35 ABG ABG pH 7.23 pH Units (7.32-7.45) L 05/19/17 04:39 ABG pCO2 59 mmHg (35-45) H 05/19/17 04:39 ABG pO2 449 mmHg (85-104) H 05/19/17 04:39 ABG O2 Saturation 100 % (95-98) H 05/19/17 04:39 Abnormal lab findings: Abnormal lab results RBC 3.66 M/mcL (3.82-4.97) L 05/19/17 03:35 MCV 100.5 fL (83.0-100.0) H 05/19/17 03:35 MCHC 31.5 g/dL (31.6-35.5) L 05/19/17 03:35 RDW 15.9 % (11.5-14.5) H 05/19/17 03:35 Plt Count 100 K/mcL (140-400) L 05/19/17 03:35 Immature Gran % 5.1 % (0-4) H 05/19/17 03:35 Band Neutrophils % 8.0 % (0-4) H 05/18/17 08:35 Lymphocytes # 0.4 K/mcL (0.6-4.6) L 05/19/17 03:35 Nucleated RBCs/100 WBC 0.4 /100 WBC (0) H 05/16/17 17:03 Platelet Estimate Decreased (Normal) L 05/18/17 08:35 Immature Plt Fraction 9.6 % (1.1-6.1) H 05/19/17 03:35 Matteo Cells 2+ (Not Present) A 05/18/17 08:35 ESR 64 mm/hr (0-15) H 05/16/17 17:03 ABG pH 7.23 pH Units (7.32-7.45) L 05/19/17 04:39 ABG pCO2 59 mmHg (35-45) H 05/19/17 04:39 ABG pO2 449 mmHg (85-104) H 05/19/17 04:39 ABG O2 Saturation 100 % (95-98) H 05/19/17 04:39 ABG Base Excess -4 mEq/L (-2 to 3) L 05/19/17 04:39 Sodium 131 mEq/L (136-145) L 05/19/17 03:35 Carbon Dioxide 22 mEq/L (23-29) L 05/19/17 03:35 BUN 25 mg/dL (8-23) H 05/19/17 03:35 Est GFR ( Amer) 54 (> 60) L 05/19/17 03:35 Est GFR (Non-Af Amer) 45 (> 60) L 05/19/17 03:35 Glucose 198 mg/dL (70-105) H 05/19/17 03:35 POC Glucose 203 (58-89) H 05/19/17 11:37 Calcium 7.2 mg/dL (8.6-10.3) L 05/19/17 03:35 Direct Bilirubin 0.3 mg/dL (0.0-0.2) H 05/16/17 17:03 AST 54 Units/L (13-39) H 05/16/17 17:03 ALT 78 Units/L (7-52) H 05/16/17 17:03 Alkaline Phosphatase 192 Units/L (34-104) H 05/16/17 17:03 Troponin I 0.04 ng/mL (< 0.04) H* 05/16/17 17:03 B-Natriuretic Peptide 176 pg/mL (Less than 100) H 05/16/17 19:47 Serum Total Protein 6.1 g/dL (6.4-8.9) L 05/16/17 17:03 Albumin 2.9 g/dL (3.5-5.7) L 05/16/17 17:03 Albumin/Globulin Ratio 0.9 (1.1-2.2) L 05/16/17 17:03 Urine Clarity Cloudy (Clear) A 05/16/17 17:21 Ur Specific [place] > 1.030 (1.010-1.025) H 05/16/17 17:21 Urine Protein 100 mg/dL (Neg-Trace) H 05/16/17 17:21 Urine Ketones Trace mg/dL (Negative) H 05/16/17 17:21 Urine Bilirubin Small (Negative) H 05/16/17 17:21 Urine Microscopic WBC 5-15 per hpf (0-3) H 05/16/17 17:21 Ur Squamous Epith Cells Many per lpf (None-Few) H 05/16/17 17:21 Hyaline Casts Many per lpf (None-Few) H 05/16/17 17:21 Vancomycin Trough 6.0 mcg/mL (10-20) L 05/18/17 08:35 - Microbiology Findings Microbiology Findings: Microbiology, Last 48 Hours 05/19/17 07:38 Sputum Culture - Preliminary Sputum - Clinical Findings Intake & Output: Intake & Output 05/18/17 05/19/17 05/19/17 23:59 07:59 15:59 Intake Total 775 / 775 1235 / 1235 759 / 759 Output Total 250 / 250 300 / 300 800 / 800 Balance 525 / 525 935 / 935 -41 / -41 Weight 67.8 kg Consult Discharge Plan - Plan Referrals: Anabel Rasmussen, SHALE PROCESSING TECHNICIAN [Primary Care Provider] - <Bart Brennan - Last Filed: 05/19/17 16:13> Date of Encounter: 05/19/17 Objective PUL Vital signs: Last Vital Signs Temp 97.4 F L 05/19/17 11:15 Pulse 70 05/19/17 16:00 Resp 16 05/19/17 16:00 BP 102/58 05/19/17 16:00 Pulse Ox 98 05/19/17 16:00 Ventilator Settings Ventilator Settings: Ventilator Settings, Last 8 Hours Ventilator Mode VC+ Ventilator Mode VC+ Ventilator Mode VC+ Ventilator Mode VC+ Ventilator Mode VC+ Ventilator Mode VC+ Ventilator Mode VC+ Ventilator Mode VC+ Ventilator Mode VC+ Ventilator Mode VC+ Ventilator Tidal Volume 400 Setting Ventilator Tidal Volume 400 Setting Ventilator Tidal Volume 400 Setting Ventilator Tidal Volume 400 Setting Ventilator Tidal Volume 400 Setting Ventilator Tidal Volume 400 Setting Ventilator Tidal Volume 400 Setting Ventilator Tidal Volume 400 Setting Ventilator Tidal Volume 400 Setting Ventilator Tidal Volume 400 Setting Ventilator Respiratory Rate 16 Setting Ventilator Respiratory Rate 16 Setting Ventilator Respiratory Rate 16 Setting Ventilator Respiratory Rate 16 Setting Ventilator Respiratory Rate 16 Setting Ventilator Respiratory Rate 16 Setting Ventilator Respiratory Rate 16 Setting Ventilator Respiratory Rate 16 Setting Ventilator Respiratory Rate 16 Setting Ventilator Respiratory Rate 16 Setting Actual Respiratory Rate 16 Actual Respiratory Rate 16 Actual Respiratory Rate 19 Actual Respiratory Rate 16 Actual Respiratory Rate 16 Actual Respiratory Rate 16 Actual Respiratory Rate 16 Actual Respiratory Rate 16 Actual Respiratory Rate 48 Actual Respiratory Rate 47 Positive End Expiratory 8 Pressure Positive End Expiratory 8 Pressure Positive End Expiratory 8 Pressure Positive End Expiratory 8 Pressure Positive End Expiratory 8 Pressure Positive End Expiratory 8 Pressure Positive End Expiratory 8 Pressure Positive End Expiratory 8 Pressure Positive End Expiratory 8 Pressure Positive End Expiratory 8 Pressure Peak Inspiratory Airway 24 Pressure Peak Inspiratory Airway 23 Pressure Peak Inspiratory Airway 26 Pressure Peak Inspiratory Airway 26 Pressure Peak Inspiratory Airway 27 Pressure Peak Inspiratory Airway 26 Pressure Peak Inspiratory Airway 27 Pressure Peak Inspiratory Airway 27 Pressure Peak Inspiratory Airway 26 Pressure Results - Laboratory Findings CBC and BMP: 05/19/17 03:35 05/19/17 03:35 ABG ABG pH 7.29 pH Units (7.32-7.45) L 05/19/17 12:20 ABG pCO2 50 mmHg (35-45) H 05/19/17 12:20 ABG pO2 129 mmHg (85-104) H 05/19/17 12:20 ABG O2 Saturation 99 % (95-98) H 05/19/17 12:20 Abnormal lab findings: Abnormal lab results RBC 3.66 M/mcL (3.82-4.97) L 05/19/17 03:35 MCV 100.5 fL (83.0-100.0) H 05/19/17 03:35 MCHC 31.5 g/dL (31.6-35.5) L 05/19/17 03:35 RDW 15.9 % (11.5-14.5) H 05/19/17 03:35 Plt Count 100 K/mcL (140-400) L 05/19/17 03:35 Immature Gran % 5.1 % (0-4) H 05/19/17 03:35 Band Neutrophils % 8.0 % (0-4) H 05/18/17 08:35 Lymphocytes # 0.4 K/mcL (0.6-4.6) L 05/19/17 03:35 Nucleated RBCs/100 WBC 0.4 /100 WBC (0) H 05/16/17 17:03 Platelet Estimate Decreased (Normal) L 05/18/17 08:35 Immature Plt Fraction 9.6 % (1.1-6.1) H 05/19/17 03:35 Matteo Cells 2+ (Not Present) A 05/18/17 08:35 ESR 64 mm/hr (0-15) H 05/16/17 17:03 ABG pH 7.29 pH Units (7.32-7.45) L 05/19/17 12:20 ABG pCO2 50 mmHg (35-45) H 05/19/17 12:20 ABG pO2 129 mmHg (85-104) H 05/19/17 12:20 ABG O2 Saturation 99 % (95-98) H 05/19/17 12:20 ABG Base Excess -3 mEq/L (-2 to 3) L 05/19/17 12:20 Sodium 131 mEq/L (136-145) L 05/19/17 03:35 Carbon Dioxide 22 mEq/L (23-29) L 05/19/17 03:35 BUN 25 mg/dL (8-23) H 05/19/17 03:35 Est GFR ( Amer) 54 (> 60) L 05/19/17 03:35 Est GFR (Non-Af Amer) 45 (> 60) L 05/19/17 03:35 Glucose 198 mg/dL (70-105) H 05/19/17 03:35 POC Glucose 203 (58-89) H 05/19/17 11:37 Calcium 7.2 mg/dL (8.6-10.3) L 05/19/17 03:35 Direct Bilirubin 0.3 mg/dL (0.0-0.2) H 05/16/17 17:03 AST 54 Units/L (13-39) H 05/16/17 17:03 ALT 78 Units/L (7-52) H 05/16/17 17:03 Alkaline Phosphatase 192 Units/L (34-104) H 05/16/17 17:03 Troponin I 0.04 ng/mL (< 0.04) H* 05/16/17 17:03 B-Natriuretic Peptide 176 pg/mL (Less than 100) H 05/16/17 19:47 Serum Total Protein 6.1 g/dL (6.4-8.9) L 05/16/17 17:03 Albumin 2.9 g/dL (3.5-5.7) L 05/16/17 17:03 Albumin/Globulin Ratio 0.9 (1.1-2.2) L 05/16/17 17:03 Urine Clarity Cloudy (Clear) A 05/16/17 17:21 Ur Specific [place] > 1.030 (1.010-1.025) H 05/16/17 17:21 Urine Protein 100 mg/dL (Neg-Trace) H 05/16/17 17:21 Urine Ketones Trace mg/dL (Negative) H 05/16/17 17:21 Urine Bilirubin Small (Negative) H 05/16/17 17:21 Urine Microscopic WBC 5-15 per hpf (0-3) H 05/16/17 17:21 Ur Squamous Epith Cells Many per lpf (None-Few) H 05/16/17 17:21 Hyaline Casts Many per lpf (None-Few) H 05/16/17 17:21 Vancomycin Trough 6.0 mcg/mL (10-20) L 05/18/17 08:35 - Microbiology Findings Microbiology Findings: Microbiology, Last 48 Hours 05/19/17 07:38 Sputum Culture - Preliminary Sputum - Clinical Findings Intake & Output: Intake & Output 05/19/17 05/19/17 05/19/17 07:59 15:59 23:59 Intake Total 1235 / 1235 914 / 914 Output Total 300 / 300 1950 / 1950 Balance 935 / 935 -1036 / -1036 Weight 67.8 kg - Attending Attestation I examined this patient and my medical decision-making was reviewed with the Resident Physician. I agree with the documented findings, disposition and treatment plan as described except to the extent set forth below. Patient seen and examined. Labs, radiology, chart personally reviewed. Agree with resident's history and physical, assessment, plan with following comments: SHOP REPAIRER: Patient sedated for the ventilator synchrony and is not follows commands, Pulmonary: Acceptable oxygenation and ventilation. Overall patient showing some improvement and FiO2 was decreased and slight increase in tidal volume for more comfort and also since there is improvement in P/F ratio and also bronchoscopy was discussed with the family. Continue current antibiotics and gradually decrease PEEP. Patient respiratory rate was high and cuff pressure of the endobronchial tube was accurately inflated and then vent synchrony was much better. Cardiovascular: stable GI: Nutrition per dietary and GI prophylaxis per routine Heme: DVT prophylaxis per routine ID: Continue antibiotics and plan to de-escalation Renal; urine out put and renal funtion reviewed Endorcine: blood glucose is monitored Lines: all lines checked and no evidence of infections Skin: skin care to prevent pressure ulcers per nursing routine care I spent 35 min of Critical Care time with this patient. It involved decision making of high complexity to assess, manipulate, and support vital organ system failure and/or to prevent further life threatening deterioration of the patient' s condition. The time involved in the performance of separately reportable procedures was not counted toward critical care time.
[2017-05-19 12:31] LABS: ABG Base Excess -3 mEq/L (-2 to 3); ABG HCO3 24 mEq/L (21-27); ABG Oxygen Saturation 99 % (95-98); ABG PCO2 50 mmHg (35-45); ABG PH 7.29 pH Units (7.32-7.45); ABG PO2 129 mmHg (85-104); ABG TCO2 26 mEq/L (20-26); Blood Gas Modality VC; Blood Gas PEEP 8 cm H2O; Blood Gas Respiration Rate 16; Blood Gas VT 400 cc
[2017-05-19] MEDS: Sulfamethoxazole/Trimeth 10 ML in D5% in Water 500 ML IVPB SCH ×2 (14:50→23:59)
[2017-05-19 15:12] LABS: Source of Body Fluid LEFT LOWER LOBE LUNG
[2017-05-19] MEDS: Latanoprost 2.5 ML BOTTLE BOTH EYES SCH (17:15)
[2017-05-19] MEDS: ALPRAZolam 1 MG TABLET PO SCH (20:41)
[2017-05-19 23:16] LABS: Appearance of Body Fluid Slightly Hazy (Clear); Volume of Body Fluid 10 mL
[2017-05-19 23:44] LABS: Appearance of Body Fluid Hazy (Clear); Source of Body Fluid RIGHT LOWER LOBE LUN; Volume of Body Fluid 10 mL
[2017-05-20] MEDS: Insulin LISPRO 300 UNITS/3 ML VIAL SQ SCH ×6 (00:05→21:21)
[2017-05-20] MEDS: Lacri-Lube 3.5 GM TUBE BOTH EYES SCH ×6 (00:05→21:29)
[2017-05-20] MEDS: Ipratropium/Albuterol Neb 3 ML IH SCH ×6 (03:03→23:14)
[2017-05-20 03:35] LABS: ABG Base Excess -1 mEq/L (-2 to 3); ABG HCO3 25 mEq/L (21-27); ABG Oxygen Saturation 98 % (95-98); ABG PCO2 45 mmHg (35-45); ABG PH 7.34 pH Units (7.32-7.45); ABG PO2 102 mmHg (85-104); ABG TCO2 26 mEq/L (20-26); Blood Gas Modality VC; Blood Gas PEEP 8 cm H2O; Blood Gas Respiration Rate 16; Blood Gas VT 400 cc
[2017-05-20 04:07] LABS: Basophils % 0.4 %; Hematocrit 37.3 % (35.3-44.9); Hemoglobin 12.3 g/dL (11.5-15.4); Immature Granulocytes % 5.3 % (0-4); Lymphocytes # 0.3 K/mcL (0.6-4.6); Lymphocytes % 3.5 %; Mean Corpuscular Hemoglobin 31.7 pg (28.0-33.3); Mean Corpuscular Volume 96.1 fL (83.0-100.0); Mean Platelet Volume 11.6 fL (9.4-12.4); Monocytes # 0.6 K/mcL (0.0-1.3); Monocytes % 6.6 %; Neutrophils # 7.9 K/mcL (1.6-8.9); Nucleated Red Blood Cells 0.2 /100 WBC (0); Platelet Count 127 K/mcL (140-400); Red Blood Count 3.88 M/mcL (3.82-4.97); Red Cell Distribution Width 15.4 % (11.5-14.5); Segmented Neutrophils % 84.2 %
[2017-05-20 04:10] LABS: Albumin 2.5 g/dL (3.5-5.7); Bilirubin,Direct 0.2 mg/dL (0.0-0.2); Bilirubin,Indirect 0.3 mg/dL (0.0-1.2); Bilirubin,Total 0.5 mg/dL (0.3-1.0); Calcium 7.6 mg/dL (8.6-10.3); Globulin 2.6 g/dL (2.4-3.5); Potassium 3.8 mEq/L (3.5-5.1); Total Protein 5.1 g/dL (6.4-8.9)
[2017-05-20 05:22] LABS: Platelet Estimate Slight Decrease (Normal)
[2017-05-20] MEDS: Piperacillin/Tazobactam 3.375 GM in 0.9 % Sodium Chloride Mini Bag 100 ML IVPB SCH ×3 (06:06→21:30)
[2017-05-20] MEDS: *HR* Heparin 5,000 UNIT/ML VIAL SQ SCH ×3 (06:06→21:30)
[2017-05-20] MEDS: FentaNYL (PF) 2,500 MCG in EMPTY BAG 1 EACH IVPB SCH (06:08)
--- NOTE | 2017-05-20 07:07 | Pulmonology Progress Note ---
<Reuben Yanes - Last Filed: 05/20/17 09:17> Date of Encounter: 05/20/17 Time of Encounter: 07:02 Assessment and Plan (1) Acute respiratory failure Current Visit: Yes Status: Acute Acute respiratory failure. Regression from BiPap to intubation. Intubated 05/19 Empiric antibiotics: Vancomycin day 5 Zosyn day 5 Bactrim day 4 Solumedrol Microbiology: Nasopharyngeal influenza swab (-) Blood culture peripheral x2 05/16 (-) @ 48hr Sputum culture 05/16 prelim moderate yeast with bacteria observed. Suspect yeast contamination. Respiratory infection panel 05/16 (-) BAL LLL: many WBC / few g+ cocci / no g- wilfrido / many yeast BAL RLL: few WBC / no g+ cocci / no g- wilfrido / no yeast Qualifiers: Respiratory failure complication: hypoxia Qualified Code(s): J96.01 - Acute respiratory failure with hypoxia (2) Pneumonia Current Visit: Yes Status: Acute Diffuse bilateral pneumonia. Clinically suspect community acquired pneumonia. CTA chest 05/16 shows no PE or acute aortic disease. Extensive bilateral parenchymal disease appearing similar to ARDS/pulmonary edema. New compared to CT chest 1 week ago. Plan as above. Qualifiers: Pneumonia type: due to unspecified organism Laterality: bilateral Lung location: unspecified part of lung Qualified Code(s): J18.9 - Pneumonia, unspecified organism (3) Hypoxia Current Visit: Yes Status: Acute Secondary to pneumonia. Plan as above. Subjective Principal diagnosis: acute respiratory failure Interval history: Hospital day 4 No acute events overnight. CXR this AM appears improved right side atelectasis, slightly worsened left side. Overall patient's pulmonary auscultation improved vs yesterday. No change in vent settings overnight. She is exiting an ARDS type picture; now moderate to mild ARDS severity with PaO2/FiO2 = 102/50 = 2.04. Will continue current course and initiate tube feedings. Objective PUL Vital signs: Last Vital Signs Temp 98.6 F 05/20/17 03:45 Pulse 79 05/20/17 06:00 Resp 16 05/20/17 06:00 BP 118/59 05/20/17 06:00 Pulse Ox 97 05/20/17 06:00 General appearance: no acute distress (appears comfortable) Eyes: nonicteric ENT: oropharynx moist Neck: supple Effort: normal Auscultation: bilateral: rales (faint, scattered), rhonchi (faint, scattered) Cardiovascular: regular rate and rhythm Gastrointestinal: normoactive bowel sounds, soft, non-distended Integumentary: normal Extremities: no cyanosis, no edema, no clubbing, pink and warm, pulses normal, no ischemia or petechiae Musculoskeletal: no deformities pupils equal and round, unable to assess due to mental status Ventilator Settings Ventilator Settings: Ventilator Settings, Last 8 Hours Ventilator Mode VC+ Ventilator Mode VC+ Ventilator Mode VC+ Ventilator Mode VC+ Ventilator Mode VC+ Ventilator Mode VC+ Ventilator Mode VC+ Ventilator Mode VC+ Ventilator Mode VC+ Ventilator Mode VC+ Ventilator Mode VC+ Ventilator Mode VC+ Ventilator Tidal Volume 400 Setting Ventilator Tidal Volume 400 Setting Ventilator Tidal Volume 400 Setting Ventilator Tidal Volume 400 Setting Ventilator Tidal Volume 400 Setting Ventilator Tidal Volume 400 Setting Ventilator Tidal Volume 400 Setting Ventilator Tidal Volume 400 Setting Ventilator Tidal Volume 400 Setting Ventilator Tidal Volume 400 Setting Ventilator Tidal Volume 400 Setting Ventilator Tidal Volume 400 Setting Ventilator Respiratory Rate 16 Setting Ventilator Respiratory Rate 16 Setting Ventilator Respiratory Rate 16 Setting Ventilator Respiratory Rate 16 Setting Ventilator Respiratory Rate 16 Setting Ventilator Respiratory Rate 16 Setting Ventilator Respiratory Rate 16 Setting Ventilator Respiratory Rate 16 Setting Ventilator Respiratory Rate 16 Setting Ventilator Respiratory Rate 16 Setting Ventilator Respiratory Rate 16 Setting Ventilator Respiratory Rate 16 Setting Actual Respiratory Rate 18 Actual Respiratory Rate 20 Actual Respiratory Rate 16 Actual Respiratory Rate 22 Actual Respiratory Rate 22 Actual Respiratory Rate 19 Actual Respiratory Rate 18 Actual Respiratory Rate 22 Actual Respiratory Rate 22 Actual Respiratory Rate 18 Actual Respiratory Rate 18 Positive End Expiratory 8 Pressure Positive End Expiratory 8 Pressure Positive End Expiratory 8 Pressure Positive End Expiratory 8 Pressure Positive End Expiratory 8 Pressure Positive End Expiratory 8 Pressure Positive End Expiratory 8 Pressure Positive End Expiratory 8 Pressure Positive End Expiratory 8 Pressure Positive End Expiratory 8 Pressure Positive End Expiratory 8 Pressure Positive End Expiratory 8 Pressure Peak Inspiratory Airway 23 Pressure Peak Inspiratory Airway 21 Pressure Peak Inspiratory Airway 22 Pressure Peak Inspiratory Airway 22 Pressure Peak Inspiratory Airway 28 Pressure Peak Inspiratory Airway 24 Pressure Peak Inspiratory Airway 23 Pressure Peak Inspiratory Airway 24 Pressure Peak Inspiratory Airway 26 Pressure Peak Inspiratory Airway 23 Pressure Peak Inspiratory Airway 25 Pressure Results - Laboratory Findings CBC and BMP: 05/20/17 03:30 05/20/17 03:30 ABG ABG pH 7.34 pH Units (7.32-7.45) 05/20/17 03:30 ABG pCO2 45 mmHg (35-45) 05/20/17 03:30 ABG pO2 102 mmHg (85-104) 05/20/17 03:30 ABG O2 Saturation 98 % (95-98) 05/20/17 03:30 Abnormal lab findings: Abnormal lab results RDW 15.4 % (11.5-14.5) H 05/20/17 03:30 Plt Count 127 K/mcL (140-400) L 05/20/17 03:30 Immature Gran % 5.3 % (0-4) H 05/20/17 03:30 Band Neutrophils % 8.0 % (0-4) H 05/18/17 08:35 Lymphocytes # 0.3 K/mcL (0.6-4.6) L 05/20/17 03:30 Nucleated RBCs/100 WBC 0.2 /100 WBC (0) H 05/20/17 03:30 Platelet Estimate Slight Decrease (Normal) L 05/20/17 03:30 Immature Plt Fraction 9.6 % (1.1-6.1) H 05/19/17 03:35 [place] Cells 2+ (Not Present) A 05/18/17 08:35 ESR 64 mm/hr (0-15) H 05/16/17 17:03 Sodium 133 mEq/L (136-145) L 05/20/17 03:30 Carbon Dioxide 22 mEq/L (23-29) L 05/20/17 03:30 BUN 24 mg/dL (8-23) H 05/20/17 03:30 Creatinine 1.28 mg/dL (0.60-1.20) H 05/20/17 03:30 Est GFR ( Amer) 49 (> 60) L 05/20/17 03:30 Est GFR (Non-Af Amer) 41 (> 60) L 05/20/17 03:30 Glucose 148 mg/dL (70-105) H 05/20/17 03:30 POC Glucose 134 (58-89) H 05/20/17 03:48 Calcium 7.6 mg/dL (8.6-10.3) L 05/20/17 03:30 Alkaline Phosphatase 154 Units/L (34-104) H 05/20/17 03:30 Troponin I 0.04 ng/mL (< 0.04) H* 05/16/17 17:03 B-Natriuretic Peptide 176 pg/mL (Less than 100) H 05/16/17 19:47 Serum Total Protein 5.1 g/dL (6.4-8.9) L 05/20/17 03:30 Albumin 2.5 g/dL (3.5-5.7) L 05/20/17 03:30 Albumin/Globulin Ratio 1.0 (1.1-2.2) L 05/20/17 03:30 Urine Clarity Cloudy (Clear) A 05/16/17 17:21 Ur Specific [place] > 1.030 (1.010-1.025) H 05/16/17 17:21 Urine Protein 100 mg/dL (Neg-Trace) H 05/16/17 17:21 Urine Ketones Trace mg/dL (Negative) H 05/16/17 17:21 Urine Bilirubin Small (Negative) H 05/16/17 17:21 Urine Microscopic WBC 5-15 per hpf (0-3) H 05/16/17 17:21 Ur Squamous Epith Cells Many per lpf (None-Few) H 05/16/17 17:21 Hyaline Casts Many per lpf (None-Few) H 05/16/17 17:21 Fluid Appearance Slightly Hazy (Clear) A 05/19/17 13:44 Vancomycin Trough 6.0 mcg/mL (10-20) L 05/18/17 08:35 - Microbiology Findings Microbiology Findings: Microbiology, Last 48 Hours 05/19/17 13:44 Gram Stain - Final Left Lower Lobe Lung 05/19/17 13:43 Gram Stain - Final Right Lower Lobe Lung 05/19/17 07:38 Sputum Culture - Preliminary Sputum - Clinical Findings Intake & Output: Intake & Output 05/19/17 05/19/17 05/20/17 15:59 23:59 07:59 Intake Total 914 / 914 775 / 775 736 / 736 Output Total 1950 / 1950 300 / 300 350 / 350 Balance -1036 / -1036 475 / 475 386 / 386 Weight 66.5 kg Consult Discharge Plan - Plan Referrals: Anabel Rasmussen, [employer] [Primary Care Provider] - <Bart Brennan - Last Filed: 05/20/17 09:51> Date of Encounter: 05/20/17 Objective PUL Vital signs: Last Vital Signs Temp 98.8 F 05/20/17 07:42 Pulse 74 05/20/17 09:00 Resp 16 05/20/17 09:14 BP 107/57 05/20/17 09:14 Pulse Ox 97 05/20/17 09:14 Ventilator Settings Ventilator Settings: Ventilator Settings, Last 8 Hours Ventilator Mode VC+ Ventilator Mode VC+ Ventilator Mode VC+ Ventilator Mode VC+ Ventilator Mode VC+ Ventilator Mode VC+ Ventilator Mode VC+ Ventilator Mode VC+ Ventilator Mode VC+ Ventilator Mode VC+ Ventilator Mode VC+ Ventilator Mode VC+ Ventilator Mode VC+ Ventilator Tidal Volume 400 Setting Ventilator Tidal Volume 400 Setting Ventilator Tidal Volume 400 Setting Ventilator Tidal Volume 400 Setting Ventilator Tidal Volume 400 Setting Ventilator Tidal Volume 400 Setting Ventilator Tidal Volume 400 Setting Ventilator Tidal Volume 400 Setting Ventilator Tidal Volume 400 Setting Ventilator Tidal Volume 400 Setting Ventilator Tidal Volume 400 Setting Ventilator Tidal Volume 400 Setting Ventilator Tidal Volume 400 Setting Ventilator Respiratory Rate 16 Setting Ventilator Respiratory Rate 16 Setting Ventilator Respiratory Rate 16 Setting Ventilator Respiratory Rate 16 Setting Ventilator Respiratory Rate 16 Setting Ventilator Respiratory Rate 16 Setting Ventilator Respiratory Rate 16 Setting Ventilator Respiratory Rate 16 Setting Ventilator Respiratory Rate 16 Setting Ventilator Respiratory Rate 16 Setting Ventilator Respiratory Rate 16 Setting Ventilator Respiratory Rate 16 Setting Ventilator Respiratory Rate 16 Setting Actual Respiratory Rate 16 Actual Respiratory Rate 20 Actual Respiratory Rate 16 Actual Respiratory Rate 16 Actual Respiratory Rate 18 Actual Respiratory Rate 18 Actual Respiratory Rate 20 Actual Respiratory Rate 16 Actual Respiratory Rate 22 Actual Respiratory Rate 22 Actual Respiratory Rate 19 Actual Respiratory Rate 18 Positive End Expiratory 5 Pressure Positive End Expiratory 5 Pressure Positive End Expiratory 8 Pressure Positive End Expiratory 8 Pressure Positive End Expiratory 8 Pressure Positive End Expiratory 8 Pressure Positive End Expiratory 8 Pressure Positive End Expiratory 8 Pressure Positive End Expiratory 8 Pressure Positive End Expiratory 8 Pressure Positive End Expiratory 8 Pressure Positive End Expiratory 8 Pressure Positive End Expiratory 8 Pressure Peak Inspiratory Airway 20 Pressure Peak Inspiratory Airway 25 Pressure Peak Inspiratory Airway 23 Pressure Peak Inspiratory Airway 21 Pressure Peak Inspiratory Airway 22 Pressure Peak Inspiratory Airway 22 Pressure Peak Inspiratory Airway 28 Pressure Peak Inspiratory Airway 24 Pressure Peak Inspiratory Airway 23 Pressure Results - Laboratory Findings CBC and BMP: 05/20/17 03:30 05/20/17 03:30 ABG ABG pH 7.34 pH Units (7.32-7.45) 05/20/17 03:30 ABG pCO2 45 mmHg (35-45) 05/20/17 03:30 ABG pO2 102 mmHg (85-104) 05/20/17 03:30 ABG O2 Saturation 98 % (95-98) 05/20/17 03:30 Abnormal lab findings: Abnormal lab results RDW 15.4 % (11.5-14.5) H 05/20/17 03:30 Plt Count 127 K/mcL (140-400) L 05/20/17 03:30 Immature Gran % 5.3 % (0-4) H 05/20/17 03:30 Band Neutrophils % 8.0 % (0-4) H 05/18/17 08:35 Lymphocytes # 0.3 K/mcL (0.6-4.6) L 05/20/17 03:30 Nucleated RBCs/100 WBC 0.2 /100 WBC (0) H 05/20/17 03:30 Platelet Estimate Slight Decrease (Normal) L 05/20/17 03:30 Immature Plt Fraction 9.6 % (1.1-6.1) H 05/19/17 03:35 [place] Cells 2+ (Not Present) A 05/18/17 08:35 ESR 64 mm/hr (0-15) H 05/16/17 17:03 Sodium 133 mEq/L (136-145) L 05/20/17 03:30 Carbon Dioxide 22 mEq/L (23-29) L 05/20/17 03:30 BUN 24 mg/dL (8-23) H 05/20/17 03:30 Creatinine 1.28 mg/dL (0.60-1.20) H 05/20/17 03:30 Est GFR ( Amer) 49 (> 60) L 05/20/17 03:30 Est GFR (Non-Af Amer) 41 (> 60) L 05/20/17 03:30 Glucose 148 mg/dL (70-105) H 05/20/17 03:30 POC Glucose 103 (58-89) H 05/20/17 07:03 Calcium 7.6 mg/dL (8.6-10.3) L 05/20/17 03:30 Alkaline Phosphatase 154 Units/L (34-104) H 05/20/17 03:30 Troponin I 0.04 ng/mL (< 0.04) H* 05/16/17 17:03 B-Natriuretic Peptide 176 pg/mL (Less than 100) H 05/16/17 19:47 Serum Total Protein 5.1 g/dL (6.4-8.9) L 05/20/17 03:30 Albumin 2.5 g/dL (3.5-5.7) L 05/20/17 03:30 Albumin/Globulin Ratio 1.0 (1.1-2.2) L 05/20/17 03:30 Urine Clarity Cloudy (Clear) A 05/16/17 17:21 Ur Specific [place] > 1.030 (1.010-1.025) H 05/16/17 17:21 Urine Protein 100 mg/dL (Neg-Trace) H 05/16/17 17:21 Urine Ketones Trace mg/dL (Negative) H 05/16/17 17:21 Urine Bilirubin Small (Negative) H 05/16/17 17:21 Urine Microscopic WBC 5-15 per hpf (0-3) H 05/16/17 17:21 Ur Squamous Epith Cells Many per lpf (None-Few) H 05/16/17 17:21 Hyaline Casts Many per lpf (None-Few) H 05/16/17 17:21 Fluid Appearance Slightly Hazy (Clear) A 05/19/17 13:44 Vancomycin Trough 6.0 mcg/mL (10-20) L 05/18/17 08:35 - Microbiology Findings Microbiology Findings: Microbiology, Last 48 Hours 05/19/17 13:44 Gram Stain - Final Left Lower Lobe Lung 05/19/17 13:43 Gram Stain - Final Right Lower Lobe Lung 05/19/17 07:38 Sputum Culture - Preliminary Sputum - Clinical Findings Intake & Output: Intake & Output 05/19/17 05/20/17 05/20/17 23:59 07:59 15:59 Intake Total 775 / 775 736 / 736 Output Total 300 / 300 500 / 500 Balance 475 / 475 236 / 236 Weight 66.5 kg - Attending Attestation I examined this patient and my medical decision-making was reviewed with the Resident Physician. I agree with the documented findings, disposition and treatment plan as described except to the extent set forth below. Patient seen and examined. Labs, radiology, chart personally reviewed. 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 I have decreased PEEP to 5 and if she can tolerate that, perhaps can increase TV more and continue to wean off FIO2 and follow-up and the lavage result to change antibiotics based on that result. Plateau pressure is within acceptable range and I am hoping she will continue to make progress to be able to extubate her soon. Continue systemic steroid and the current dose. Cardiovascular: stable GI: Nutrition per dietary and GI prophylaxis per routine. Attempt again to place feeding gastric tube to start diet. Heme: DVT prophylaxis per routine ID: Continue antibiotics and plan to de-escalation Renal; urine out put and renal funtion reviewed Endorcine: blood glucose is monitored Lines: all lines checked and no evidence of infections Skin: skin care to prevent pressure ulcers per nursing routine care I spent 32 min of Critical Care time with this patient. It involved decision making of high complexity to assess, manipulate, and support vital organ system failure and/or to prevent further life threatening deterioration of the patient' s condition. The time involved in the performance of separately reportable procedures was not counted toward critical care time.
[2017-05-20] MEDS: Aspirin Enteric Coated 325 MG Tablet PO SCH ×2 (08:42→08:44)
[2017-05-20] MEDS: Chlorhexidine Rinse 15 ML MOUTHWASH MM SCH ×2 (08:42→21:29)
[2017-05-20] MEDS: Pantoprazole 40 MG VIAL IVP SCH (08:42)
[2017-05-20] MEDS: methylPREDNISolone 125 MG/2 ML VIAL IVP SCH ×3 (08:42→23:26)
[2017-05-20] MEDS: Sulfamethoxazole/Trimeth 10 ML in D5% in Water 500 ML IVPB SCH ×3 (09:38→23:23)
[2017-05-20] MEDS: Latanoprost 2.5 ML BOTTLE BOTH EYES SCH (17:45)
[2017-05-20] MEDS: ALPRAZolam 1 MG TABLET PO SCH (21:30)
[2017-05-21] MEDS: Insulin LISPRO 300 UNITS/3 ML VIAL SQ SCH ×7 (00:03→23:10)
[2017-05-21] MEDS: Lacri-Lube 3.5 GM TUBE BOTH EYES SCH ×7 (00:04→23:11)
[2017-05-21] MEDS: Ipratropium/Albuterol Neb 3 ML IH SCH ×5 (03:14→19:27)
[2017-05-21 04:16] LABS: ABG Base Excess 2 mEq/L (-2 to 3); ABG HCO3 28 mEq/L (21-27); ABG Oxygen Saturation 94 % (95-98); ABG PCO2 49 mmHg (35-45); ABG PH 7.36 pH Units (7.32-7.45); ABG PO2 73 mmHg (85-104); ABG TCO2 29 mEq/L (20-26); Blood Gas Modality VC; Blood Gas PEEP 5 cm H2O; Blood Gas Respiration Rate 16; Blood Gas VT 400 cc
[2017-05-21 04:53] LABS: Hematocrit 35.4 % (35.3-44.9); Hemoglobin 11.5 g/dL (11.5-15.4); Immature Platelets 7.7 % (1.1-6.1); Lymphocytes # 0.3 K/mcL (0.6-4.6); Mean Corpuscular HGB Conc 32.5 g/dL (31.6-35.5); Mean Corpuscular Hemoglobin 31.9 pg (28.0-33.3); Mean Corpuscular Volume 98.1 fL (83.0-100.0); Mean Platelet Volume 10.9 fL (9.4-12.4); Nucleated Red Blood Cells 0.2 /100 WBC (0); Platelet Count 150 K/mcL (140-400); Red Blood Count 3.61 M/mcL (3.82-4.97); Red Cell Distribution Width 15.7 % (11.5-14.5)
[2017-05-21 05:00] LABS: BUN/Creatinine Ratio 23 (6-26); Blood Urea Nitrogen 20 mg/dL (8-23); Calcium 7.5 mg/dL (8.6-10.3); Carbon Dioxide 22 mEq/L (23-29); Chloride 103 mEq/L (98-107); Glucose 155 mg/dL (70-105); Osmolality,Calculated 282 (280-300); Potassium 4.5 mEq/L (3.5-5.1); Sodium 133 mEq/L (136-145); eGFR For African Americans > 60 (> 60); eGFR For Non-African Americans > 60 (> 60)
[2017-05-21] MEDS: *HR* Heparin 5,000 UNIT/ML VIAL SQ SCH ×3 (05:17→21:01)
[2017-05-21] MEDS: Piperacillin/Tazobactam 3.375 GM in 0.9 % Sodium Chloride Mini Bag 100 ML IVPB SCH ×3 (05:18→21:01)
[2017-05-21 06:10] LABS: Monocytes # 0.3 K/mcL (0.0-1.3); Neutrophils # 7.5 K/mcL (1.6-8.9); Platelet Estimate Normal (Normal)
[2017-05-21] MEDS: methylPREDNISolone 125 MG/2 ML VIAL IVP SCH ×3 (08:05→23:09)
[2017-05-21] MEDS: Chlorhexidine Rinse 15 ML MOUTHWASH MM SCH ×2 (08:05→19:20)
[2017-05-21] MEDS: Aspirin Enteric Coated 325 MG Tablet PO SCH (08:05)
[2017-05-21] MEDS: Sulfamethoxazole/Trimeth 10 ML in D5% in Water 500 ML IVPB SCH ×3 (08:05→23:10)
[2017-05-21] MEDS: Pantoprazole 40 MG VIAL IVP SCH (08:06)
--- NOTE | 2017-05-21 08:27 | Pulmonology Progress Note ---
<MarielKem W - Last Filed: 05/21/17 14:03> Date of Encounter: 05/21/17 Time of Encounter: 08:51 Objective PUL Vital signs: Last Vital Signs Temp 98.4 F 05/21/17 08:15 Pulse 77 05/21/17 08:17 Resp 13 05/21/17 08:25 BP 120/65 05/21/17 08:25 Pulse Ox 93 05/21/17 08:25 Ventilator Settings Ventilator Settings: Ventilator Settings, Last 8 Hours Ventilator Mode CPAP Ventilator Mode VC+ Ventilator Mode VC+ Ventilator Mode VC+ Ventilator Mode VC+ Ventilator Mode VC+ Ventilator Mode VC+ Ventilator Mode VC+ Ventilator Mode VC+ Ventilator Mode VC+ Ventilator Mode VC+ Ventilator Tidal Volume 400 Setting Ventilator Tidal Volume 400 Setting Ventilator Tidal Volume 400 Setting Ventilator Tidal Volume 400 Setting Ventilator Tidal Volume 400 Setting Ventilator Tidal Volume 400 Setting Ventilator Tidal Volume 400 Setting Ventilator Tidal Volume 400 Setting Ventilator Tidal Volume 400 Setting Ventilator Tidal Volume 400 Setting Ventilator Respiratory Rate 16 Setting Ventilator Respiratory Rate 16 Setting Ventilator Respiratory Rate 16 Setting Ventilator Respiratory Rate 16 Setting Ventilator Respiratory Rate 16 Setting Ventilator Respiratory Rate 16 Setting Ventilator Respiratory Rate 16 Setting Ventilator Respiratory Rate 16 Setting Ventilator Respiratory Rate 16 Setting Ventilator Respiratory Rate 16 Setting Actual Respiratory Rate 13 Actual Respiratory Rate 18 Actual Respiratory Rate 16 Actual Respiratory Rate 17 Actual Respiratory Rate 18 Actual Respiratory Rate 16 Actual Respiratory Rate 16 Actual Respiratory Rate 19 Actual Respiratory Rate 16 Actual Respiratory Rate 16 Positive End Expiratory 5 Pressure Positive End Expiratory 5 Pressure Positive End Expiratory 5 Pressure Positive End Expiratory 5 Pressure Positive End Expiratory 5 Pressure Positive End Expiratory 5 Pressure Positive End Expiratory 5 Pressure Positive End Expiratory 5 Pressure Positive End Expiratory 5 Pressure Positive End Expiratory 5 Pressure Positive End Expiratory 5 Pressure Peak Inspiratory Airway 10 Pressure Peak Inspiratory Airway 21 Pressure Peak Inspiratory Airway 24 Pressure Peak Inspiratory Airway 21 Pressure Peak Inspiratory Airway 20 Pressure Peak Inspiratory Airway 21 Pressure Peak Inspiratory Airway 20 Pressure Peak Inspiratory Airway 21 Pressure Peak Inspiratory Airway 21 Pressure Peak Inspiratory Airway 22 Pressure Results - Laboratory Findings CBC and BMP: 05/21/17 04:00 05/21/17 04:00 ABG ABG pH 7.36 pH Units (7.32-7.45) 05/21/17 04:11 ABG pCO2 49 mmHg (35-45) H 05/21/17 04:11 ABG pO2 73 mmHg (85-104) L 05/21/17 04:11 ABG O2 Saturation 94 % (95-98) L 05/21/17 04:11 Abnormal lab findings: Abnormal lab results RBC 3.61 M/mcL (3.82-4.97) L 05/21/17 04:00 RDW 15.7 % (11.5-14.5) H 05/21/17 04:00 Immature Gran % 5.3 % (0-4) H 05/20/17 03:30 Lymphocytes # 0.3 K/mcL (0.6-4.6) L 05/21/17 04:00 Nucleated RBCs/100 WBC 0.2 /100 WBC (0) H 05/21/17 04:00 Immature Plt Fraction 7.7 % (1.1-6.1) H 05/21/17 04:00 Matte[place] Cells 2+ (Not Present) A 05/18/17 08:35 ESR 64 mm/hr (0-15) H 05/16/17 17:03 ABG pCO2 49 mmHg (35-45) H 05/21/17 04:11 ABG pO2 73 mmHg (85-104) L 05/21/17 04:11 ABG HCO3 28 mEq/L (21-27) H 05/21/17 04:11 ABG Total CO2 29 mEq/L (20-26) H 05/21/17 04:11 ABG O2 Saturation 94 % (95-98) L 05/21/17 04:11 Sodium 133 mEq/L (136-145) L 05/21/17 04:00 Carbon Dioxide 22 mEq/L (23-29) L 05/21/17 04:00 Glucose 155 mg/dL (70-105) H 05/21/17 04:00 POC Glucose 99 (58-89) H 05/21/17 07:23 Calcium 7.5 mg/dL (8.6-10.3) L 05/21/17 04:00 Alkaline Phosphatase 154 Units/L (34-104) H 05/20/17 03:30 Troponin I 0.04 ng/mL (< 0.04) H* 05/16/17 17:03 B-Natriuretic Peptide 176 pg/mL (Less than 100) H 05/16/17 19:47 Serum Total Protein 5.1 g/dL (6.4-8.9) L 05/20/17 03:30 Albumin 2.5 g/dL (3.5-5.7) L 05/20/17 03:30 Albumin/Globulin Ratio 1.0 (1.1-2.2) L 05/20/17 03:30 Urine Clarity Cloudy (Clear) A 05/16/17 17:21 Ur Specific [place] > 1.030 (1.010-1.025) H 05/16/17 17:21 Urine Protein 100 mg/dL (Neg-Trace) H 05/16/17 17:21 Urine Ketones Trace mg/dL (Negative) H 05/16/17 17:21 Urine Bilirubin Small (Negative) H 05/16/17 17:21 Urine Microscopic WBC 5-15 per hpf (0-3) H 05/16/17 17:21 Ur Squamous Epith Cells Many per lpf (None-Few) H 05/16/17 17:21 Hyaline Casts Many per lpf (None-Few) H 05/16/17 17:21 Fluid Appearance Slightly Hazy (Clear) A 05/19/17 13:44 Vancomycin Trough 6.0 mcg/mL (10-20) L 05/18/17 08:35 - Microbiology Findings Microbiology Findings: Microbiology, Last 48 Hours 05/19/17 13:43 Acid Fast Stain - Final Right Lower Lobe Lung 05/19/17 13:44 Acid Fast Stain - Final Left Lower Lobe Lung 05/19/17 07:38 Sputum Culture - Preliminary Sputum 05/19/17 13:43 Gram Stain - Final Right Lower Lobe Lung 05/19/17 13:44 Gram Stain - Final Left Lower Lobe Lung - Clinical Findings Intake & Output: Intake & Output 05/20/17 05/21/17 05/21/17 23:59 07:59 15:59 Intake Total 750 / 750 788.6 / 788.6 Output Total 1100 / 1100 650 / 650 250 / 250 Balance -350 / -350 138.6 / 138.6 -250 / -250 Weight 67.4 kg Consult Discharge Plan - Plan Referrals: Anabel Rasmussen LONG TERM CARE PHLEBOTOMIST [Primary Care Provider] - - Attending Attestation I examined this patient and my medical decision-making was reviewed with the Resident Physician. I agree with the documented findings, disposition and treatment plan as described except to the extent set forth below. We independently had [id number] contact with the patient Patient seen and examined at bedside Labs, radiology, chart personally reviewed. Management was reviewed during multidisciplinary critical care rounds. 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 Cards: Blood pressure monitored and acceptable FEN-GI: Bedside speech/swallow eval and can advance diet later in the day Renal: Kidney function monitor urine output acceptable ID: Being treated broadly for pneumonia with planned to de-escalate her antimicrobials Heme/Onc: Endo: She is steroids for possible rheumatological condition this is day 3 and we will cont to wean as clinically able steroids tomorrow. Glucose Monitored Integ/MSK: Skin Care per routine ICU Nursing Protocol to prevent ulcers. Lines: All lines examined without evidence of infection : Dispo: remain in icu today admission likely be transferred in the next 24 hours CODE:Full <Reuben Yanes Guilherme - Last Filed: 05/21/17 18:31> Date of Encounter: 05/21/17 Assessment and Plan (1) Acute respiratory failure Current Visit: Yes Status: Acute Acute respiratory failure. Regression from BiPap to intubation. Intubated 05/19 Extubated 05/21 Empiric antibiotics: Vancomycin day 6 Zosyn day 6 Bactrim day 5 Solumedrol Microbiology: Nasopharyngeal influenza swab (-) Blood culture peripheral x2 05/16 (-) @ 48hr Sputum culture 05/16 prelim moderate yeast with bacteria observed. Suspect yeast contamination. Respiratory infection panel 05/16 (-) BAL LLL: many WBC / few g+ cocci / no g- wilfrido / many yeast BAL RLL: few WBC / no g+ cocci / no g- wilfrido / no yeast Begin incentive spirometry and pulmonary toilet. Consider transition to step down unit tomorrow. Qualifiers: Respiratory failure complication: hypoxia Qualified Code(s): J96.01 - Acute respiratory failure with hypoxia (2) Pneumonia Current Visit: Yes Status: Acute Diffuse bilateral pneumonia. Clinically suspect community acquired pneumonia. Plan as above. Qualifiers: Pneumonia type: due to unspecified organism Laterality: bilateral Lung location: unspecified part of lung Qualified Code(s): J18.9 - Pneumonia, unspecified organism (3) Hypoxia Current Visit: Yes Status: Acute Secondary to pneumonia. Plan as above. Subjective Principal diagnosis: acute respiratory failure Interval history: Hospital day 5 No acute events overnight. Patient was extubated this morning successfully to nasal cannulae. As her sedation continued to wear off through the day, she became progressively more alert. Slight sore throat. She is hungry, passed nursing bedside swallow evaluation, and has been advanced in her diet. Chest xray marginally worse today however clinically patient is much better. Objective PUL Vital signs: Last Vital Signs Temp 98.4 F 05/21/17 08:15 Pulse 69 05/21/17 06:00 Resp 13 05/21/17 07:24 BP 118/63 05/21/17 07:24 Pulse Ox 95 05/21/17 07:24 General appearance: no acute distress, alert Eyes: nonicteric ENT: oropharynx moist Neck: supple Effort: normal Auscultation: bilateral: diminished breath sounds, wheezes (faint, scattered), other (no rhales or rhonchi) Cardiovascular: regular rate and rhythm Gastrointestinal: normoactive bowel sounds, soft, non-tender, non-distended Integumentary: normal Extremities: no cyanosis, no edema, no clubbing, pink and warm, pulses normal, no ischemia or petechiae Musculoskeletal: no deformities normal mental status, non-focal exam, pupils equal and round, motor strength normal and symmetric mood appropriate Ventilator Settings Ventilator Settings: Ventilator Settings, Last 8 Hours Ventilator Mode CPAP Ventilator Mode VC+ Ventilator Mode VC+ Ventilator Mode VC+ Ventilator Mode VC+ Ventilator Mode VC+ Ventilator Mode VC+ Ventilator Mode VC+ Ventilator Mode VC+ Ventilator Mode VC+ Ventilator Mode VC+ Ventilator Tidal Volume 400 Setting Ventilator Tidal Volume 400 Setting Ventilator Tidal Volume 400 Setting Ventilator Tidal Volume 400 Setting Ventilator Tidal Volume 400 Setting Ventilator Tidal Volume 400 Setting Ventilator Tidal Volume 400 Setting Ventilator Tidal Volume 400 Setting Ventilator Tidal Volume 400 Setting Ventilator Tidal Volume 400 Setting Ventilator Respiratory Rate 16 Setting Ventilator Respiratory Rate 16 Setting Ventilator Respiratory Rate 16 Setting Ventilator Respiratory Rate 16 Setting Ventilator Respiratory Rate 16 Setting Ventilator Respiratory Rate 16 Setting Ventilator Respiratory Rate 16 Setting Ventilator Respiratory Rate 16 Setting Ventilator Respiratory Rate 16 Setting Ventilator Respiratory Rate 16 Setting Actual Respiratory Rate 13 Actual Respiratory Rate 18 Actual Respiratory Rate 16 Actual Respiratory Rate 17 Actual Respiratory Rate 18 Actual Respiratory Rate 16 Actual Respiratory Rate 16 Actual Respiratory Rate 19 Actual Respiratory Rate 16 Actual Respiratory Rate 16 Positive End Expiratory 5 Pressure Positive End Expiratory 5 Pressure Positive End Expiratory 5 Pressure Positive End Expiratory 5 Pressure Positive End Expiratory 5 Pressure Positive End Expiratory 5 Pressure Positive End Expiratory 5 Pressure Positive End Expiratory 5 Pressure Positive End Expiratory 5 Pressure Positive End Expiratory 5 Pressure Positive End Expiratory 5 Pressure Peak Inspiratory Airway 10 Pressure Peak Inspiratory Airway 21 Pressure Peak Inspiratory Airway 24 Pressure Peak Inspiratory Airway 21 Pressure Peak Inspiratory Airway 20 Pressure Peak Inspiratory Airway 21 Pressure Peak Inspiratory Airway 20 Pressure Peak Inspiratory Airway 21 Pressure Peak Inspiratory Airway 21 Pressure Peak Inspiratory Airway 22 Pressure Results - Laboratory Findings CBC and BMP: 05/21/17 04:00 05/21/17 04:00 ABG ABG pH 7.36 pH Units (7.32-7.45) 05/21/17 04:11 ABG pCO2 49 mmHg (35-45) H 05/21/17 04:11 ABG pO2 73 mmHg (85-104) L 05/21/17 04:11 ABG O2 Saturation 94 % (95-98) L 05/21/17 04:11 Abnormal lab findings: Abnormal lab results RBC 3.61 M/mcL (3.82-4.97) L 05/21/17 04:00 RDW 15.7 % (11.5-14.5) H 05/21/17 04:00 Immature Gran % 5.3 % (0-4) H 05/20/17 03:30 Lymphocytes # 0.3 K/mcL (0.6-4.6) L 05/21/17 04:00 Nucleated RBCs/100 WBC 0.2 /100 WBC (0) H 05/21/17 04:00 Immature Plt Fraction 7.7 % (1.1-6.1) H 05/21/17 04:00 [place] Cells 2+ (Not Present) A 05/18/17 08:35 ESR 64 mm/hr (0-15) H 05/16/17 17:03 ABG pCO2 49 mmHg (35-45) H 05/21/17 04:11 ABG pO2 73 mmHg (85-104) L 05/21/17 04:11 ABG HCO3 28 mEq/L (21-27) H 05/21/17 04:11 ABG Total CO2 29 mEq/L (20-26) H 05/21/17 04:11 ABG O2 Saturation 94 % (95-98) L 05/21/17 04:11 Sodium 133 mEq/L (136-145) L 05/21/17 04:00 Carbon Dioxide 22 mEq/L (23-29) L 05/21/17 04:00 Glucose 155 mg/dL (70-105) H 05/21/17 04:00 POC Glucose 99 (58-89) H 05/21/17 07:23 Calcium 7.5 mg/dL (8.6-10.3) L 05/21/17 04:00 Alkaline Phosphatase 154 Units/L (34-104) H 05/20/17 03:30 Troponin I 0.04 ng/mL (< 0.04) H* 05/16/17 17:03 B-Natriuretic Peptide 176 pg/mL (Less than 100) H 05/16/17 19:47 Serum Total Protein 5.1 g/dL (6.4-8.9) L 05/20/17 03:30 Albumin 2.5 g/dL (3.5-5.7) L 05/20/17 03:30 Albumin/Globulin Ratio 1.0 (1.1-2.2) L 05/20/17 03:30 Urine Clarity Cloudy (Clear) A 05/16/17 17:21 Ur Specific [place] > 1.030 (1.010-1.025) H 05/16/17 17:21 Urine Protein 100 mg/dL (Neg-Trace) H 05/16/17 17:21 Urine Ketones Trace mg/dL (Negative) H 05/16/17 17:21 Urine Bilirubin Small (Negative) H 05/16/17 17:21 Urine Microscopic WBC 5-15 per hpf (0-3) H 05/16/17 17:21 Ur Squamous Epith Cells Many per lpf (None-Few) H 05/16/17 17:21 Hyaline Casts Many per lpf (None-Few) H 05/16/17 17:21 Fluid Appearance Slightly Hazy (Clear) A 05/19/17 13:44 Vancomycin Trough 6.0 mcg/mL (10-20) L 05/18/17 08:35 - Microbiology Findings Microbiology Findings: Microbiology, Last 48 Hours 05/19/17 13:43 Acid Fast Stain - Final Right Lower Lobe Lung 05/19/17 13:44 Acid Fast Stain - Final Left Lower Lobe Lung 05/19/17 07:38 Sputum Culture - Preliminary Sputum 05/19/17 13:43 Gram Stain - Final Right Lower Lobe Lung 05/19/17 13:44 Gram Stain - Final Left Lower Lobe Lung - Clinical Findings Intake & Output: Intake & Output 05/20/17 05/21/17 05/21/17 23:59 07:59 15:59 Intake Total 750 / 750 788.6 / 788.6 Output Total 1100 / 1100 650 / 650 250 / 250 Balance -350 / -350 138.6 / 138.6 -250 / -250 Weight 67.4 kg
[2017-05-21] MEDS: FentaNYL (PF) 2,500 MCG in EMPTY BAG 1 EACH IVPB SCH (14:13)
[2017-05-21] MEDS ORDERED: Simethicone 80 MG TAB.CHEW PO PRN (17:04)
[2017-05-21] MEDS: Latanoprost 2.5 ML BOTTLE BOTH EYES SCH (17:28)
[2017-05-21] MEDS: ALPRAZolam 1 MG TABLET PO SCH (20:05)
[2017-05-22] MEDS: Ipratropium/Albuterol Neb 3 ML IH SCH ×7 (00:31→23:52)
[2017-05-22] MEDS: Lacri-Lube 3.5 GM TUBE BOTH EYES SCH ×3 (01:22→11:49)
[2017-05-22] MEDS ORDERED: Ketorolac 15 MG/ML VIAL IVP ONE (02:04)
[2017-05-22 03:28] LABS: Hematocrit 35.9 % (35.3-44.9); Hemoglobin 11.4 g/dL (11.5-15.4); Mean Corpuscular HGB Conc 31.8 g/dL (31.6-35.5); Mean Corpuscular Hemoglobin 31.1 pg (28.0-33.3); Mean Corpuscular Volume 97.8 fL (83.0-100.0); Mean Platelet Volume 10.9 fL (9.4-12.4); Platelet Count 192 K/mcL (140-400); Red Blood Count 3.67 M/mcL (3.82-4.97); Red Cell Distribution Width 15.9 % (11.5-14.5)
[2017-05-22 03:40] LABS: BUN/Creatinine Ratio 26 (6-26); Blood Urea Nitrogen 21 mg/dL (8-23); Calcium 7.6 mg/dL (8.6-10.3); Carbon Dioxide 26 mEq/L (23-29); Chloride 104 mEq/L (98-107); Glucose 142 mg/dL (70-105); Osmolality,Calculated 287 (280-300); Potassium 4.6 mEq/L (3.5-5.1); Sodium 136 mEq/L (136-145); eGFR For African Americans > 60 (> 60); eGFR For Non-African Americans > 60 (> 60)
[2017-05-22] MEDS: Insulin LISPRO 300 UNITS/3 ML VIAL SQ SCH ×5 (04:02→23:04)
[2017-05-22 04:38] LABS: Lymphocytes # 0.9 K/mcL (0.6-4.6); Monocytes # 0.2 K/mcL (0.0-1.3); Platelet Estimate Normal (Normal); Reactive Lymphocytes Present (Not Present); Toxic Granulation Present (Not Present)
[2017-05-22] MEDS: *HR* Heparin 5,000 UNIT/ML VIAL SQ SCH ×3 (05:00→21:06)
[2017-05-22] MEDS: Piperacillin/Tazobactam 3.375 GM in 0.9 % Sodium Chloride Mini Bag 100 ML IVPB SCH ×3 (05:00→21:06)
[2017-05-22] MEDS: Sulfamethoxazole/Trimeth 10 ML in D5% in Water 500 ML IVPB SCH ×3 (07:28→23:03)
[2017-05-22] MEDS: FentaNYL (PF) 2,500 MCG in EMPTY BAG 1 EACH IVPB SCH (07:40)
[2017-05-22] MEDS: Aspirin Enteric Coated 325 MG Tablet PO SCH (07:48)
[2017-05-22] MEDS: Pantoprazole 40 MG VIAL IVP SCH (07:48)
[2017-05-22] MEDS: Chlorhexidine Rinse 15 ML MOUTHWASH MM SCH (07:48)
[2017-05-22] MEDS: methylPREDNISolone 125 MG/2 ML VIAL IVP SCH ×3 (07:48→23:03)
[2017-05-22] MEDS ORDERED: *HR* OxyCODONE/APAP 5/325 TABLET PO PRN (08:02)
[2017-05-22] MEDS ORDERED: Lactobacillus 1 EACH CAP.SPRINK PO SCH (09:00)
[2017-05-22] MEDS ORDERED: Furosemide 40 MG/4 ML VIAL IVP ONE (09:38)
--- NOTE | 2017-05-22 11:22 | Pulmonology Progress Note ---
<Micah Barkley - Last Filed: 05/22/17 12:41> Date of Encounter: 05/22/17 Time of Encounter: 09:30 Assessment and Plan (1) Acute respiratory failure Current Visit: Yes Status: Acute Interval: Acute respiratory failure likely secondary to community acquired pneumonia. Increased work of breathing on bipap; patient agreeable to short-term intubation on 05/19 in light of code status Patient extubated 05/21. Yeast per LLL BAL, without + bld culture, and patient is clinically improving , likely a contaminant. Plan: Solumedrol in setting of possible ARDS after steroid taper prior to admission. 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 Clinically suspect community acquired pneumonia. Qualifiers: Pneumonia type: due to unspecified organism Laterality: bilateral Lung location: unspecified part of lung Qualified Code(s): J18.9 - Pneumonia, unspecified organism (3) Hypoxia Current Visit: Yes Status: Acute Secondary to pneumonia. Plan as above. (4) DVT prophylaxis Current Visit: Yes Status: Acute SQ Heparin Subjective Principal diagnosis: acute respiratory failure Interval history: Extubated 05/21; tolerating nasal cannula well. Plan for PT/OT today and transfer to telemetry. Pt notes some mild abdominal discomfort today. No subjective fevers or change in BM. Objective PUL Vital signs: Last Vital Signs Temp 97.6 F 05/22/17 07:00 Pulse 62 05/22/17 10:00 Resp 24 05/22/17 11:18 BP 123/70 05/22/17 10:00 Pulse Ox 94 05/22/17 11:18 General appearance: no acute distress Eyes: nonicteric ENT: oropharynx moist Neck: supple Effort: normal Auscultation: bilateral: diminished breath sounds Cardiovascular: regular rate and rhythm Gastrointestinal: normoactive bowel sounds Integumentary: normal Extremities: no cyanosis Musculoskeletal: no deformities non-focal exam affect normal Results - Laboratory Findings CBC and BMP: 05/22/17 03:00 05/22/17 03:00 ABG ABG pH 7.36 pH Units (7.32-7.45) 05/21/17 04:11 ABG pCO2 49 mmHg (35-45) H 05/21/17 04:11 ABG pO2 73 mmHg (85-104) L 05/21/17 04:11 ABG O2 Saturation 94 % (95-98) L 05/21/17 04:11 Abnormal lab findings: Abnormal lab results RBC 3.67 M/mcL (3.82-4.97) L 05/22/17 03:00 Hgb 11.4 g/dL (11.5-15.4) L 05/22/17 03:00 RDW 15.9 % (11.5-14.5) H 05/22/17 03:00 Immature Gran % 5.3 % (0-4) H 05/20/17 03:30 Nucleated RBCs/100 WBC 0.2 /100 WBC (0) H 05/21/17 04:00 Reactive Lymphocytes Present (Not Present) A 05/22/17 03:00 Toxic Granulation Present (Not Present) A 05/22/17 03:00 Immature Plt Fraction 7.7 % (1.1-6.1) H 05/21/17 04:00 Matteo Cells 2+ (Not Present) A 05/18/17 08:35 ESR 64 mm/hr (0-15) H 05/16/17 17:03 ABG pCO2 49 mmHg (35-45) H 05/21/17 04:11 ABG pO2 73 mmHg (85-104) L 05/21/17 04:11 ABG HCO3 28 mEq/L (21-27) H 05/21/17 04:11 ABG Total CO2 29 mEq/L (20-26) H 05/21/17 04:11 ABG O2 Saturation 94 % (95-98) L 05/21/17 04:11 Glucose 142 mg/dL (70-105) H 05/22/17 03:00 POC Glucose 114 (58-89) H 05/22/17 07:39 Calcium 7.6 mg/dL (8.6-10.3) L 05/22/17 03:00 Alkaline Phosphatase 154 Units/L (34-104) H 05/20/17 03:30 Troponin I 0.04 ng/mL (< 0.04) H* 05/16/17 17:03 B-Natriuretic Peptide 176 pg/mL (Less than 100) H 05/16/17 19:47 Serum Total Protein 5.1 g/dL (6.4-8.9) L 05/20/17 03:30 Albumin 2.5 g/dL (3.5-5.7) L 05/20/17 03:30 Albumin/Globulin Ratio 1.0 (1.1-2.2) L 05/20/17 03:30 Urine Clarity Cloudy (Clear) A 05/16/17 17:21 Ur Specific [place] > 1.030 (1.010-1.025) H 05/16/17 17:21 Urine Protein 100 mg/dL (Neg-Trace) H 05/16/17 17:21 Urine Ketones Trace mg/dL (Negative) H 05/16/17 17:21 Urine Bilirubin Small (Negative) H 05/16/17 17:21 Urine Microscopic WBC 5-15 per hpf (0-3) H 05/16/17 17:21 Ur Squamous Epith Cells Many per lpf (None-Few) H 05/16/17 17:21 Hyaline Casts Many per lpf (None-Few) H 05/16/17 17:21 Fluid Appearance Slightly Hazy (Clear) A 05/19/17 13:44 Vancomycin Trough 6.0 mcg/mL (10-20) L 05/18/17 08:35 - Microbiology Findings Microbiology Findings: Microbiology, Last 48 Hours 05/19/17 13:43 Fungal Culture - Preliminary Right Lower Lobe Lung Yeast Species 05/19/17 13:44 Fungal Culture - Preliminary Left Lower Lobe Lung Yeast Species 05/19/17 13:44 Respiratory Culture - Preliminary Left Lower Lobe Lung Yeast Species 05/19/17 13:43 Gram Stain - Final Right Lower Lobe Lung Respiratory Culture - Preliminary Yeast Species 05/19/17 07:38 Sputum Culture - Preliminary Sputum Yeast Species 05/19/17 13:43 Acid Fast Stain - Final Right Lower Lobe Lung 05/19/17 13:44 Acid Fast Stain - Final Left Lower Lobe Lung - Clinical Findings Intake & Output: Intake & Output 05/21/17 05/22/17 05/22/17 23:59 07:59 15:59 Intake Total 610 / 610 610 / 610 610 / 610 Output Total 1600 / 1600 350 / 350 600 / 600 Balance -990 / -990 260 / 260 10 / 10 Weight 67.8 kg Consult Discharge Plan - Plan Referrals: Anabel Rasmussen, MACHINE ROOM ENGINEER [Primary Care Provider] - <Vladimir Thomas - Last Filed: 05/22/17 23:13> Date of Encounter: 05/22/17 Objective PUL Vital signs: Last Vital Signs Temp 97.4 F L 05/22/17 23:01 Pulse 69 05/22/17 23:01 Resp 16 05/22/17 23:01 BP 121/83 05/22/17 23:01 Pulse Ox 93 05/22/17 23:01 Results - Laboratory Findings CBC and BMP: 05/22/17 03:00 05/22/17 19:33 ABG ABG pH 7.36 pH Units (7.32-7.45) 05/21/17 04:11 ABG pCO2 49 mmHg (35-45) H 05/21/17 04:11 ABG pO2 73 mmHg (85-104) L 05/21/17 04:11 ABG O2 Saturation 94 % (95-98) L 05/21/17 04:11 Abnormal lab findings: Abnormal lab results RBC 3.67 M/mcL (3.82-4.97) L 05/22/17 03:00 Hgb 11.4 g/dL (11.5-15.4) L 05/22/17 03:00 RDW 15.9 % (11.5-14.5) H 05/22/17 03:00 Immature Gran % 5.3 % (0-4) H 05/20/17 03:30 Nucleated RBCs/100 WBC 0.2 /100 WBC (0) H 05/21/17 04:00 Reactive Lymphocytes Present (Not Present) A 05/22/17 03:00 Toxic Granulation Present (Not Present) A 05/22/17 03:00 Immature Plt Fraction 7.7 % (1.1-6.1) H 05/21/17 04:00 [place] Cells 2+ (Not Present) A 05/18/17 08:35 ESR 64 mm/hr (0-15) H 05/16/17 17:03 ABG pCO2 49 mmHg (35-45) H 05/21/17 04:11 ABG pO2 73 mmHg (85-104) L 05/21/17 04:11 ABG HCO3 28 mEq/L (21-27) H 05/21/17 04:11 ABG Total CO2 29 mEq/L (20-26) H 05/21/17 04:11 ABG O2 Saturation 94 % (95-98) L 05/21/17 04:11 BUN 24 mg/dL (8-23) H 05/22/17 19:33 Calcium 7.9 mg/dL (8.6-10.3) L 05/22/17 19:33 Alkaline Phosphatase 154 Units/L (34-104) H 05/20/17 03:30 Troponin I 0.04 ng/mL (< 0.04) H* 05/16/17 17:03 B-Natriuretic Peptide 176 pg/mL (Less than 100) H 05/16/17 19:47 Serum Total Protein 5.1 g/dL (6.4-8.9) L 05/20/17 03:30 Albumin 2.5 g/dL (3.5-5.7) L 05/20/17 03:30 Albumin/Globulin Ratio 1.0 (1.1-2.2) L 05/20/17 03:30 Urine Clarity Cloudy (Clear) A 05/16/17 17:21 Ur Specific [place] > 1.030 (1.010-1.025) H 05/16/17 17:21 Urine Protein 100 mg/dL (Neg-Trace) H 05/16/17 17:21 Urine Ketones Trace mg/dL (Negative) H 05/16/17 17:21 Urine Bilirubin Small (Negative) H 05/16/17 17:21 Urine Microscopic WBC 5-15 per hpf (0-3) H 05/16/17 17:21 Ur Squamous Epith Cells Many per lpf (None-Few) H 05/16/17 17:21 Hyaline Casts Many per lpf (None-Few) H 05/16/17 17:21 Fluid Appearance Slightly Hazy (Clear) A 05/19/17 13:44 Vancomycin Trough 6.0 mcg/mL (10-20) L 05/18/17 08:35 - Microbiology Findings Microbiology Findings: Microbiology, Last 48 Hours 05/19/17 13:43 Fungal Culture - Preliminary Right Lower Lobe Lung Yeast Species 05/19/17 13:44 Fungal Culture - Preliminary Left Lower Lobe Lung Yeast Species 05/19/17 13:44 Respiratory Culture - Preliminary Left Lower Lobe Lung Yeast Species 05/19/17 13:43 Gram Stain - Final Right Lower Lobe Lung Respiratory Culture - Preliminary Yeast Species 05/19/17 07:38 Sputum Culture - Preliminary Sputum Yeast Species - Clinical Findings Intake & Output: Intake & Output 05/22/17 05/22/17 05/22/17 07:59 15:59 23:59 Intake Total 610 / 610 610 / 610 730 / 730 Output Total 350 / 350 1400 / 1400 Balance 260 / 260 -790 / -790 730 / 730 Weight 64.8 kg - Attending Attestation I saw and evaluated this patient and my medical decision-making was reviewed with the Resident Physician. I agree with the documented findings, disposition and treatment plan as described except to the extent set forth below. We independently had [id number] contact with the patient. Patient seen and examined at bedside Labs, radiology, chart personally reviewed. Management was reviewed during multidisciplinary critical care rounds. 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 Pulm: Patient developed acute hypoxic respiratory failure with differential diagnosis inflammatory pneumonias vs atypical or typical bacterial PNA vs flare of the rheumatological condition . 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 Lines: All lines examined without evidence of infection : Dispo: Patient can be transferred to CODE:[id number]
[2017-05-22] MEDS ORDERED: methylPREDNISolone 125 MG/2 ML VIAL IVP SCH (12:04)
[2017-05-22] MEDS ORDERED: *HR* Midazolam HCl 2 MG/2 ML VIAL IVP PRN (12:32)
[2017-05-22] MEDS ORDERED: D5% in Water 1,000 ML IVC PRN (12:32)
[2017-05-22] MEDS ORDERED: FentaNYL (PF) 2,500 MCG in EMPTY BAG 1 EACH IVPB SCH (12:32)
[2017-05-22] MEDS ORDERED: Naloxone 0.4 MG/ML INJ IVP PRN (12:32)
[2017-05-22] MEDS ORDERED: *HR* Dextrose 50 % in Water (Syg) 50 ML SYRINGE IVP PRN (12:32)
[2017-05-22] MEDS ORDERED: Dextrose Gel 15 GM/37.5 ML TUBE PO PRN ×2 (12:32)
[2017-05-22] MEDS ORDERED: Simethicone 80 MG TAB.CHEW PO PRN (12:32)
[2017-05-22] MEDS ORDERED: Insulin LISPRO 300 UNITS/3 ML VIAL SQ SCH (16:00)
[2017-05-22] MEDS: Latanoprost 2.5 ML BOTTLE BOTH EYES SCH (16:24)
[2017-05-22] MEDS: *HR* OxyCODONE/APAP 5/325 TABLET PO PRN (16:38)
[2017-05-22] MEDS: ALPRAZolam 1 MG TABLET PO SCH (20:05)
[2017-05-22 20:17] LABS: BUN/Creatinine Ratio 26 (6-26); Blood Urea Nitrogen 24 mg/dL (8-23); Calcium 7.9 mg/dL (8.6-10.3); Carbon Dioxide 29 mEq/L (23-29); Chloride 102 mEq/L (98-107); Glucose 76 mg/dL (70-105); Osmolality,Calculated 291 (280-300); Potassium 4.2 mEq/L (3.5-5.1); Sodium 139 mEq/L (136-145); eGFR For African Americans > 60 (> 60); eGFR For Non-African Americans > 60 (> 60)
[2017-05-23] MEDS: *HR* OxyCODONE/APAP 5/325 TABLET PO PRN ×2 (02:30→07:52)
[2017-05-23] MEDS: Ipratropium/Albuterol Neb 3 ML IH SCH ×6 (03:42→23:56)
[2017-05-23 03:57] LABS: Basophils # 0.1 K/mcL (0.0-0.2); Basophils % 0.7 %; Eosinophils % 0.2 %; Hematocrit 39.1 % (35.3-44.9); Hemoglobin 12.8 g/dL (11.5-15.4); Immature Granulocytes % 7.3 % (0-4); Lymphocytes # 0.4 K/mcL (0.6-4.6); Lymphocytes % 4.1 %; Mean Corpuscular HGB Conc 32.7 g/dL (31.6-35.5); Mean Corpuscular Hemoglobin 31.7 pg (28.0-33.3); Mean Corpuscular Volume 96.8 fL (83.0-100.0); Mean Platelet Volume 10.1 fL (9.4-12.4); Monocytes # 0.3 K/mcL (0.0-1.3); Monocytes % 2.9 %; Neutrophils # 8.4 K/mcL (1.6-8.9); Platelet Count 239 K/mcL (140-400); Red Blood Count 4.04 M/mcL (3.82-4.97); Red Cell Distribution Width 15.9 % (11.5-14.5); Segmented Neutrophils % 84.8 %
[2017-05-23 04:19] LABS: BUN/Creatinine Ratio 24 (6-26); Blood Urea Nitrogen 20 mg/dL (8-23); Calcium 7.9 mg/dL (8.6-10.3); Carbon Dioxide 28 mEq/L (23-29); Chloride 103 mEq/L (98-107); Glucose 120 mg/dL (70-105); Osmolality,Calculated 292 (280-300); Potassium 4.3 mEq/L (3.5-5.1); Sodium 139 mEq/L (136-145); eGFR For African Americans > 60 (> 60); eGFR For Non-African Americans > 60 (> 60)
[2017-05-23] MEDS: Insulin LISPRO 300 UNITS/3 ML VIAL SQ SCH ×4 (04:27→23:12)
[2017-05-23] MEDS: *HR* Heparin 5,000 UNIT/ML VIAL SQ SCH ×3 (05:00→23:07)
[2017-05-23] MEDS: Piperacillin/Tazobactam 3.375 GM in 0.9 % Sodium Chloride Mini Bag 100 ML IVPB SCH (05:01)
[2017-05-23 05:21] LABS: Platelet Estimate Normal (Normal); Toxic Granulation Present (Not Present)
[2017-05-23] MEDS: methylPREDNISolone 125 MG/2 ML VIAL IVP SCH ×3 (07:33→23:07)
[2017-05-23] MEDS: Pantoprazole 40 MG VIAL IVP SCH (07:34)
[2017-05-23] MEDS: Aspirin Enteric Coated 325 MG Tablet PO SCH (07:34)
[2017-05-23] MEDS: Lactobacillus 1 EACH CAP.SPRINK PO SCH (07:34)
[2017-05-23] MEDS: Sulfamethoxazole/Trimeth 10 ML in D5% in Water 500 ML IVPB SCH (07:53)
[2017-05-23] MEDS ORDERED: Furosemide 40 MG/4 ML VIAL IVP ONE ×2 (08:21→13:08)
[2017-05-23] MEDS ORDERED: *HR* Metoprolol 5 MG/5 ML VIAL IVP PRN (08:21)
--- NOTE | 2017-05-23 09:03 | Pulmonology Progress Note ---
<Micah Barkley - Last Filed: 05/23/17 09:21> Date of Encounter: 05/23/17 Time of Encounter: 08:00 Assessment and Plan (1) Acute respiratory failure Current Visit: Yes Status: Acute Interval: Acute respiratory failure likely secondary to community acquired pneumonia. Increased work of breathing on bipap; patient agreeable to short-term intubation on 05/19 in light of code status Patient extubated 05/21. Yeast per LLL BAL, without + bld culture, and patient presentation is overall improving, likely a contaminant. Plan: Solumedrol in setting of possible ARDS after steroid taper prior to admission. 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 Plan for clinical assessment outpatient with Rheumatology follow-up. Rheumatology updated regarding current admission 05/23/17. PCP Prophylaxis with TMP-SMX recommended through duration of current steroid administration and taper (will go from solumedrol 60mg q8 to 40 q8 today). Qualifiers: Respiratory failure complication: hypoxia Qualified Code(s): J96.01 - Acute respiratory failure with hypoxia (2) Altered mental status Current Visit: Yes Status: Acute Mild change in baseline mentation today with R<L strength. Early dementia vs steroid mood/mentation effects vs WHISKEY FILTERER Will order CT head Monitoring BMP Continue steroid taper Qualifiers: Altered mental status type: unspecified Qualified Code(s): R41.82 - Altered mental status, unspecified (3) Pneumonia Current Visit: Yes Status: Acute Diffuse bilateral pneumonia. Clinically suspect community acquired pneumonia. Qualifiers: Pneumonia type: due to unspecified organism Laterality: bilateral Lung location: unspecified part of lung Qualified Code(s): J18.9 - Pneumonia, unspecified organism (4) Hypoxia Current Visit: Yes Status: Acute Secondary to pneumonia. Plan as above. (5) DVT prophylaxis Current Visit: Yes Status: Acute SQ Heparin Subjective Principal diagnosis: acute respiratory failure Interval history: Extubated 05/21; tolerating nasal cannula well. Has had a mild change in baseline mentation today regarding awareness of nasal cannula, but is alert and oriented. Want to workup some potential focal arm issure with a CT of the head. Objective PUL Vital signs: Last Vital Signs Temp 98.2 F 05/23/17 03:21 Pulse 88 05/23/17 07:43 Resp 16 05/23/17 07:24 BP 115/64 05/23/17 07:00 Pulse Ox 93 05/23/17 07:24 General appearance: no acute distress, other (some confusion) Eyes: nonicteric ENT: oropharynx moist Neck: supple Effort: normal Auscultation: bilateral: diminished breath sounds Cardiovascular: regular rate and rhythm Gastrointestinal: soft, non-tender Integumentary: normal Extremities: no cyanosis Musculoskeletal: no deformities non-focal exam (R<L strength mild) Results - Laboratory Findings CBC and BMP: 05/23/17 02:52 05/23/17 02:52 ABG ABG pH 7.36 pH Units (7.32-7.45) 05/21/17 04:11 ABG pCO2 49 mmHg (35-45) H 05/21/17 04:11 ABG pO2 73 mmHg (85-104) L 05/21/17 04:11 ABG O2 Saturation 94 % (95-98) L 05/21/17 04:11 Abnormal lab findings: Abnormal lab results RDW 15.9 % (11.5-14.5) H 05/23/17 02:52 Immature Gran % 7.3 % (0-4) H 05/23/17 02:52 Lymphocytes # 0.4 K/mcL (0.6-4.6) L 05/23/17 02:52 Nucleated RBCs/100 WBC 0.2 /100 WBC (0) H 05/21/17 04:00 Reactive Lymphocytes Present (Not Present) A 05/22/17 03:00 Toxic Granulation Present (Not Present) A 05/23/17 02:52 Immature Plt Fraction 7.7 % (1.1-6.1) H 05/21/17 04:00 Stopover Cells 2+ (Not Present) A 05/18/17 08:35 ESR 64 mm/hr (0-15) H 05/16/17 17:03 ABG pCO2 49 mmHg (35-45) H 05/21/17 04:11 ABG pO2 73 mmHg (85-104) L 05/21/17 04:11 ABG HCO3 28 mEq/L (21-27) H 05/21/17 04:11 ABG Total CO2 29 mEq/L (20-26) H 05/21/17 04:11 ABG O2 Saturation 94 % (95-98) L 05/21/17 04:11 Glucose 120 mg/dL (70-105) H 05/23/17 02:52 POC Glucose 122 (58-89) H 05/23/17 08:14 Calcium 7.9 mg/dL (8.6-10.3) L 05/23/17 02:52 Alkaline Phosphatase 154 Units/L (34-104) H 05/20/17 03:30 Troponin I 0.04 ng/mL (< 0.04) H* 05/16/17 17:03 B-Natriuretic Peptide 176 pg/mL (Less than 100) H 05/16/17 19:47 Serum Total Protein 5.1 g/dL (6.4-8.9) L 05/20/17 03:30 Albumin 2.5 g/dL (3.5-5.7) L 05/20/17 03:30 Albumin/Globulin Ratio 1.0 (1.1-2.2) L 05/20/17 03:30 Urine Clarity Cloudy (Clear) A 05/16/17 17:21 Ur Specific [place] > 1.030 (1.010-1.025) H 05/16/17 17:21 Urine Protein 100 mg/dL (Neg-Trace) H 05/16/17 17:21 Urine Ketones Trace mg/dL (Negative) H 05/16/17 17:21 Urine Bilirubin Small (Negative) H 05/16/17 17:21 Urine Microscopic WBC 5-15 per hpf (0-3) H 05/16/17 17:21 Ur Squamous Epith Cells Many per lpf (None-Few) H 05/16/17 17:21 Hyaline Casts Many per lpf (None-Few) H 05/16/17 17:21 Fluid Appearance Slightly Hazy (Clear) A 05/19/17 13:44 Vancomycin Trough 6.0 mcg/mL (10-20) L 05/18/17 08:35 - Microbiology Findings Microbiology Findings: Microbiology, Last 48 Hours 05/19/17 13:43 Gram Stain - Final Right Lower Lobe Lung Respiratory Culture - Final Karen albicans 05/19/17 13:44 Respiratory Culture - Final Left Lower Lobe Lung Karen albicans 05/19/17 07:38 Sputum Culture - Final Sputum Karen albicans 05/19/17 13:43 Fungal Culture - Preliminary Right Lower Lobe Lung Yeast Species 05/19/17 13:44 Fungal Culture - Preliminary Left Lower Lobe Lung Yeast Species - Clinical Findings Intake & Output: Intake & Output 05/22/17 05/23/17 05/23/17 23:59 07:59 15:59 Intake Total 730 / 730 660 / 660 Output Total 300 / 300 1200 / 1200 Balance 430 / 430 -540 / -540 Weight 64.8 kg Consult Discharge Plan - Plan Referrals: Anabel Rasmussen, SPECIAL INSPECTOR [Primary Care Provider] - <Vladimir Thomas - Last Filed: 05/23/17 22:56> Date of Encounter: 05/23/17 Objective PUL Vital signs: Last Vital Signs Temp 97.6 F 05/23/17 20:29 Pulse 70 05/23/17 22:00 Resp 18 05/23/17 22:00 BP 109/78 05/23/17 22:00 Pulse Ox 94 05/23/17 22:00 Results - Laboratory Findings CBC and BMP: 05/23/17 02:52 05/23/17 02:52 ABG ABG pH 7.36 pH Units (7.32-7.45) 05/21/17 04:11 ABG pCO2 49 mmHg (35-45) H 05/21/17 04:11 ABG pO2 73 mmHg (85-104) L 05/21/17 04:11 ABG O2 Saturation 94 % (95-98) L 05/21/17 04:11 Abnormal lab findings: Abnormal lab results RDW 15.9 % (11.5-14.5) H 05/23/17 02:52 Immature Gran % 7.3 % (0-4) H 05/23/17 02:52 Lymphocytes # 0.4 K/mcL (0.6-4.6) L 05/23/17 02:52 Nucleated RBCs/100 WBC 0.2 /100 WBC (0) H 05/21/17 04:00 Reactive Lymphocytes Present (Not Present) A 05/22/17 03:00 Toxic Granulation Present (Not Present) A 05/23/17 02:52 Immature Plt Fraction 7.7 % (1.1-6.1) H 05/21/17 04:00 Matteo Cells 2+ (Not Present) A 05/18/17 08:35 ESR 64 mm/hr (0-15) H 05/16/17 17:03 ABG pCO2 49 mmHg (35-45) H 05/21/17 04:11 ABG pO2 73 mmHg (85-104) L 05/21/17 04:11 ABG HCO3 28 mEq/L (21-27) H 05/21/17 04:11 ABG Total CO2 29 mEq/L (20-26) H 05/21/17 04:11 ABG O2 Saturation 94 % (95-98) L 05/21/17 04:11 Glucose 120 mg/dL (70-105) H 05/23/17 02:52 POC Glucose 176 (58-89) H 05/23/17 17:25 Calcium 7.9 mg/dL (8.6-10.3) L 05/23/17 02:52 Alkaline Phosphatase 154 Units/L (34-104) H 05/20/17 03:30 Troponin I 0.04 ng/mL (< 0.04) H* 05/16/17 17:03 B-Natriuretic Peptide 176 pg/mL (Less than 100) H 05/16/17 19:47 Serum Total Protein 5.1 g/dL (6.4-8.9) L 05/20/17 03:30 Albumin 2.5 g/dL (3.5-5.7) L 05/20/17 03:30 Albumin/Globulin Ratio 1.0 (1.1-2.2) L 05/20/17 03:30 Urine Clarity Cloudy (Clear) A 05/16/17 17:21 Ur Specific [place] > 1.030 (1.010-1.025) H 05/16/17 17:21 Urine Protein 100 mg/dL (Neg-Trace) H 05/16/17 17:21 Urine Ketones Trace mg/dL (Negative) H 05/16/17 17:21 Urine Bilirubin Small (Negative) H 05/16/17 17:21 Urine Microscopic WBC 5-15 per hpf (0-3) H 05/16/17 17:21 Ur Squamous Epith Cells Many per lpf (None-Few) H 05/16/17 17:21 Hyaline Casts Many per lpf (None-Few) H 05/16/17 17:21 Fluid Appearance Slightly Hazy (Clear) A 05/19/17 13:44 Vancomycin Trough 6.0 mcg/mL (10-20) L 05/18/17 08:35 - Microbiology Findings Microbiology Findings: Microbiology, Last 48 Hours 05/19/17 13:43 Gram Stain - Final Right Lower Lobe Lung Respiratory Culture - Final Karen albicans 05/19/17 13:44 Respiratory Culture - Final Left Lower Lobe Lung Karen albicans 05/19/17 07:38 Sputum Culture - Final Sputum Karen albicans 05/19/17 13:43 Fungal Culture - Preliminary Right Lower Lobe Lung Yeast Species 05/19/17 13:44 Fungal Culture - Preliminary Left Lower Lobe Lung Yeast Species - Clinical Findings Intake & Output: Intake & Output 05/23/17 05/23/17 05/23/17 07:59 15:59 23:59 Intake Total 660 / 660 1210 / 1210 Output Total 1200 / 1200 4250 / 4250 350 / 350 Balance -540 / -540 -3040 / -3040 -350 / -350 - Attending Attestation - Attending Attestation I saw and evaluated this patient and my medical decision-making was reviewed with the Resident Physician. I agree with the documented findings, disposition and treatment plan as described except to the extent set forth below. We independently had [id number] contact with the patient. Patient seen and examined at bedside Labs, radiology, chart personally reviewed. Management was reviewed during multidisciplinary critical care rounds. WHISKEY FILTERER:Patient is conscious oriented x 3 there is no evidence of acute confusional state at the time of my exam patient complains of generalized body pain. But better than yesterday since with persistent right arm weakness with some restlessness got CT head w/o contrast which she didnt have any acute stroke Pulm: Patient developed acute hypoxic respiratory failure with differential diagnosis inflammatory pneumonias vs atypical or typical bacterial PNA vs flare of the rheumatological condition . To liberate steroids as tolerated will continue bactrim to stop Zosyn . Cards:Hemodynamically stable diurese as tolerated FEN-GI: Advance diet as tolerated Renal:Labs and output reviewed ID:To continue the broad spectrum antibitoics will start descalating Heme/Onc:Patient had the aoritis which was treated by Dr.Van Portillo spoke with him today she doesnt need steroid treatment for GCA or aoritis will taper as usual Endo: Glucose Monitored Integ/MSK: Skin Care per routine ICU Nursing Protocol to prevent ulcers. Lines: All lines examined without evidence of infection : Dispo: Patient high risk of decompensation as her O2 requirements is going up CODE Spoke with patient doesnt want to be reintubated will change to Code status DNRCCA -DNI
[2017-05-23] MEDS ORDERED: Ondansetron 4 MG/2 ML VIAL IVP ONE (13:07)
--- NOTE | 2017-05-23 13:25 | Event Note ---
Date of Encounter: 05/23/17 Time of Encounter: 13:20 76 year old female here with inflammatory pneumonia vs pulmonary edema spoke with Patient who is conscious oriented told me in clear mind in front of daughter and Son that in the situation her lung or heart fails she doesnt want intubation or CPR she told me that she is well aware of that if she doesnt get resuscitated she might pass away . Spoke with Son and Daughter they agree with mom wishes .So code status was change to [id number]
[2017-05-23] MEDS: Latanoprost 2.5 ML BOTTLE BOTH EYES SCH ×2 (17:02→20:02)
[2017-05-23] MEDS: ALPRAZolam 1 MG TABLET PO SCH (20:01)
[2017-05-24 03:48] LABS: Hematocrit 43.7 % (35.3-44.9); Hemoglobin 14.2 g/dL (11.5-15.4); Lymphocytes # 0.4 K/mcL (0.6-4.6); Mean Corpuscular HGB Conc 32.5 g/dL (31.6-35.5); Mean Corpuscular Hemoglobin 31.3 pg (28.0-33.3); Mean Corpuscular Volume 96.3 fL (83.0-100.0); Mean Platelet Volume 10.1 fL (9.4-12.4); Platelet Count 284 K/mcL (140-400); Red Blood Count 4.54 M/mcL (3.82-4.97); Red Cell Distribution Width 15.7 % (11.5-14.5)
[2017-05-24] MEDS: Ipratropium/Albuterol Neb 3 ML IH SCH ×6 (03:57→23:00)
[2017-05-24 04:06] LABS: BUN/Creatinine Ratio 32 (6-26); Blood Urea Nitrogen 25 mg/dL (8-23); Calcium 8.5 mg/dL (8.6-10.3); Carbon Dioxide 33 mEq/L (23-29); Chloride 98 mEq/L (98-107); Glucose 135 mg/dL (70-105); Osmolality,Calculated 288 (280-300); Potassium 4.6 mEq/L (3.5-5.1); Sodium 136 mEq/L (136-145); eGFR For African Americans > 60 (> 60); eGFR For Non-African Americans > 60 (> 60)
[2017-05-24 04:20] LABS: Eosinophils # 0.2 K/mcL (0.0-0.6); Monocytes # 0.2 K/mcL (0.0-1.3); Neutrophils # 9.7 K/mcL (1.6-8.9); Platelet Estimate Normal (Normal)
[2017-05-24] MEDS: *HR* Heparin 5,000 UNIT/ML VIAL SQ SCH ×3 (05:32→21:11)
[2017-05-24] MEDS: Insulin LISPRO 300 UNITS/3 ML VIAL SQ SCH ×4 (05:32→23:47)
[2017-05-24] MEDS: methylPREDNISolone 125 MG/2 ML VIAL IVP SCH (08:16)
[2017-05-24] MEDS: Lactobacillus 1 EACH CAP.SPRINK PO SCH (08:17)
[2017-05-24] MEDS: Aspirin Enteric Coated 325 MG Tablet PO SCH (08:17)
[2017-05-24] MEDS: Pantoprazole 40 MG VIAL IVP SCH (08:20)
--- NOTE | 2017-05-24 08:59 | Pulmonology Progress Note ---
<Micah Barkley - Last Filed: 05/24/17 17:27> Date of Encounter: 05/24/17 Time of Encounter: 08:45 Assessment and Plan (1) Acute respiratory failure Current Visit: Yes Status: Acute Interval: Acute respiratory failure likely secondary to community acquired pneumonia. Increased work of breathing on bipap; patient agreeable to short-term intubation on 05/19 in light of code status Patient extubated 05/21. Yeast per LLL BAL, without + bld culture, and patient presentation is overall improving, likely a contaminant. Plan: Solumedrol in setting of possible ARDS after steroid taper prior to admission. 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 Plan for clinical assessment outpatient with Rheumatology follow-up. Rheumatology updated regarding current admission 05/23/17. We are continuing PCP Prophylaxis with TMP-SMX (she is currently on Double- Strength formulation PO) recommended through duration of current steroid taper. (Currently 40mg q8) Qualifiers: Respiratory failure complication: hypoxia Qualified Code(s): J96.01 - Acute respiratory failure with hypoxia (2) Altered mental status Current Visit: Yes Status: Acute Mild change in baseline mentation on 05/23, improved today 05/24. Early dementia vs steroid mood/mentation effects vs RAGS LABORER CT head -negative for acute changes, no interval change Continue steroid taper Qualifiers: Altered mental status type: unspecified Qualified Code(s): R41.82 - Altered mental status, unspecified (3) Pneumonia Current Visit: Yes Status: Acute Most recent CXR 05/22 shows bilateral airspace disease. Clinically improved, no wt ct or fever. Qualifiers: Pneumonia type: due to unspecified organism Laterality: bilateral Lung location: unspecified part of lung Qualified Code(s): J18.9 - Pneumonia, unspecified organism (4) Hypoxia Current Visit: Yes Status: Acute Secondary to pneumonia. Plan as above. (5) DVT prophylaxis Current Visit: Yes Status: Acute SQ Heparin Subjective Principal diagnosis: acute respiratory failure Interval history: Extubated 05/21; tolerating nasal cannula at 2L 05/24. Feels better compared to yesterday, energy and mood. Objective PUL Vital signs: Last Vital Signs Temp 98.3 F 05/24/17 07:46 Pulse 88 05/24/17 08:00 Resp 22 05/24/17 08:00 BP 114/77 05/24/17 08:00 Pulse Ox 92 05/24/17 08:00 General appearance: no acute distress Eyes: nonicteric ENT: oropharynx moist Neck: supple Auscultation: bilateral: diminished breath sounds Cardiovascular: regular rate and rhythm (HR in high 60s) Gastrointestinal: soft, non-tender Integumentary: normal Extremities: no cyanosis Musculoskeletal: no deformities non-focal exam affect normal Results - Laboratory Findings CBC and BMP: 05/24/17 03:38 05/24/17 03:38 ABG ABG pH 7.36 pH Units (7.32-7.45) 05/21/17 04:11 ABG pCO2 49 mmHg (35-45) H 05/21/17 04:11 ABG pO2 73 mmHg (85-104) L 05/21/17 04:11 ABG O2 Saturation 94 % (95-98) L 05/21/17 04:11 Abnormal lab findings: Abnormal lab results RDW 15.7 % (11.5-14.5) H 05/24/17 03:38 Immature Gran % 7.3 % (0-4) H 05/23/17 02:52 Metamyelocytes % 2.0 % (0) H 05/24/17 03:38 Neutrophils # 9.7 K/mcL (1.6-8.9) H 05/24/17 03:38 Lymphocytes # 0.4 K/mcL (0.6-4.6) L 05/24/17 03:38 Nucleated RBCs/100 WBC 0.2 /100 WBC (0) H 05/21/17 04:00 Reactive Lymphocytes Present (Not Present) A 05/22/17 03:00 Toxic Granulation Present (Not Present) A 05/23/17 02:52 Immature Plt Fraction 7.7 % (1.1-6.1) H 05/21/17 04:00 Matteo Cells 2+ (Not Present) A 05/18/17 08:35 ESR 64 mm/hr (0-15) H 05/16/17 17:03 ABG pCO2 49 mmHg (35-45) H 05/21/17 04:11 ABG pO2 73 mmHg (85-104) L 05/21/17 04:11 ABG HCO3 28 mEq/L (21-27) H 05/21/17 04:11 ABG Total CO2 29 mEq/L (20-26) H 05/21/17 04:11 ABG O2 Saturation 94 % (95-98) L 05/21/17 04:11 Carbon Dioxide 33 mEq/L (23-29) H 05/24/17 03:38 BUN 25 mg/dL (8-23) H 05/24/17 03:38 BUN/Creatinine Ratio 32 (6-26) H 05/24/17 03:38 Glucose 135 mg/dL (70-105) H 05/24/17 03:38 POC Glucose 231 (58-89) H 05/24/17 05:30 Calcium 8.5 mg/dL (8.6-10.3) L 05/24/17 03:38 Alkaline Phosphatase 154 Units/L (34-104) H 05/20/17 03:30 Troponin I 0.04 ng/mL (< 0.04) H* 05/16/17 17:03 B-Natriuretic Peptide 176 pg/mL (Less than 100) H 05/16/17 19:47 Serum Total Protein 5.1 g/dL (6.4-8.9) L 05/20/17 03:30 Albumin 2.5 g/dL (3.5-5.7) L 05/20/17 03:30 Albumin/Globulin Ratio 1.0 (1.1-2.2) L 05/20/17 03:30 Urine Clarity Cloudy (Clear) A 05/16/17 17:21 Ur Specific [place] > 1.030 (1.010-1.025) H 05/16/17 17:21 Urine Protein 100 mg/dL (Neg-Trace) H 05/16/17 17:21 Urine Ketones Trace mg/dL (Negative) H 05/16/17 17:21 Urine Bilirubin Small (Negative) H 05/16/17 17:21 Urine Microscopic WBC 5-15 per hpf (0-3) H 05/16/17 17:21 Ur Squamous Epith Cells Many per lpf (None-Few) H 05/16/17 17:21 Hyaline Casts Many per lpf (None-Few) H 05/16/17 17:21 Fluid Appearance Slightly Hazy (Clear) A 05/19/17 13:44 Vancomycin Trough 6.0 mcg/mL (10-20) L 05/18/17 08:35 - Microbiology Findings Microbiology Findings: Microbiology, Last 48 Hours 05/19/17 13:43 Acid Fast Stain - Final Right Lower Lobe Lung 05/19/17 13:43 Fungal Culture - Preliminary Right Lower Lobe Lung Karen albicans 05/19/17 13:43 Gram Stain - Final Right Lower Lobe Lung Respiratory Culture - Final Karen albicans 05/19/17 13:44 Acid Fast Stain - Final Left Lower Lobe Lung 05/19/17 13:44 Fungal Culture - Preliminary Left Lower Lobe Lung Karen albicans 05/19/17 13:44 Respiratory Culture - Final Left Lower Lobe Lung Karen albicans 05/19/17 07:38 Sputum Culture - Final Sputum Karen albicans - Clinical Findings Intake & Output: Intake & Output 05/23/17 05/24/17 05/24/17 23:59 07:59 15:59 Intake Total 500 / 500 Output Total 350 / 350 200 / 200 Balance -350 / -350 300 / 300 Weight 65.2 kg Consult Discharge Plan - Plan Referrals: Anabel Rasmussen, CRUDE OIL TREATER [Primary Care Provider] - <Vladimir Thomas - Last Filed: 05/24/17 23:17> Date of Encounter: 05/24/17 Objective PUL Vital signs: Last Vital Signs Temp 98.0 F 05/24/17 19:23 Pulse 81 05/24/17 19:23 Resp 18 05/24/17 23:01 BP 105/76 05/24/17 19:23 Pulse Ox 93 05/24/17 23:01 Results - Laboratory Findings CBC and BMP: 05/24/17 03:38 05/24/17 03:38 ABG ABG pH 7.36 pH Units (7.32-7.45) 05/21/17 04:11 ABG pCO2 49 mmHg (35-45) H 05/21/17 04:11 ABG pO2 73 mmHg (85-104) L 05/21/17 04:11 ABG O2 Saturation 94 % (95-98) L 05/21/17 04:11 Abnormal lab findings: Abnormal lab results RDW 15.7 % (11.5-14.5) H 05/24/17 03:38 Immature Gran % 7.3 % (0-4) H 05/23/17 02:52 Metamyelocytes % 2.0 % (0) H 05/24/17 03:38 Neutrophils # 9.7 K/mcL (1.6-8.9) H 05/24/17 03:38 Lymphocytes # 0.4 K/mcL (0.6-4.6) L 05/24/17 03:38 Nucleated RBCs/100 WBC 0.2 /100 WBC (0) H 05/21/17 04:00 Reactive Lymphocytes Present (Not Present) A 05/22/17 03:00 Toxic Granulation Present (Not Present) A 05/23/17 02:52 Immature Plt Fraction 7.7 % (1.1-6.1) H 05/21/17 04:00 [place] Cells 2+ (Not Present) A 05/18/17 08:35 ESR 64 mm/hr (0-15) H 05/16/17 17:03 ABG pCO2 49 mmHg (35-45) H 05/21/17 04:11 ABG pO2 73 mmHg (85-104) L 05/21/17 04:11 ABG HCO3 28 mEq/L (21-27) H 05/21/17 04:11 ABG Total CO2 29 mEq/L (20-26) H 05/21/17 04:11 ABG O2 Saturation 94 % (95-98) L 05/21/17 04:11 Carbon Dioxide 33 mEq/L (23-29) H 05/24/17 03:38 BUN 25 mg/dL (8-23) H 05/24/17 03:38 BUN/Creatinine Ratio 32 (6-26) H 05/24/17 03:38 Glucose 135 mg/dL (70-105) H 05/24/17 03:38 POC Glucose 126 (58-89) H 05/24/17 17:25 Calcium 8.5 mg/dL (8.6-10.3) L 05/24/17 03:38 Alkaline Phosphatase 154 Units/L (34-104) H 05/20/17 03:30 Troponin I 0.04 ng/mL (< 0.04) H* 05/16/17 17:03 B-Natriuretic Peptide 176 pg/mL (Less than 100) H 05/16/17 19:47 Serum Total Protein 5.1 g/dL (6.4-8.9) L 05/20/17 03:30 Albumin 2.5 g/dL (3.5-5.7) L 05/20/17 03:30 Albumin/Globulin Ratio 1.0 (1.1-2.2) L 05/20/17 03:30 Urine Clarity Cloudy (Clear) A 05/16/17 17:21 Ur Specific [place] > 1.030 (1.010-1.025) H 05/16/17 17:21 Urine Protein 100 mg/dL (Neg-Trace) H 05/16/17 17:21 Urine Ketones Trace mg/dL (Negative) H 05/16/17 17:21 Urine Bilirubin Small (Negative) H 05/16/17 17:21 Urine Microscopic WBC 5-15 per hpf (0-3) H 05/16/17 17:21 Ur Squamous Epith Cells Many per lpf (None-Few) H 05/16/17 17:21 Hyaline Casts Many per lpf (None-Few) H 05/16/17 17:21 Fluid Appearance Slightly Hazy (Clear) A 05/19/17 13:44 Vancomycin Trough 6.0 mcg/mL (10-20) L 05/18/17 08:35 - Microbiology Findings Microbiology Findings: Microbiology, Last 48 Hours 05/19/17 13:43 Acid Fast Stain - Final Right Lower Lobe Lung 05/19/17 13:43 Fungal Culture - Preliminary Right Lower Lobe Lung Karen albicans 05/19/17 13:43 Gram Stain - Final Right Lower Lobe Lung Respiratory Culture - Final Karen albicans 05/19/17 13:44 Acid Fast Stain - Final Left Lower Lobe Lung 05/19/17 13:44 Fungal Culture - Preliminary Left Lower Lobe Lung Karen albicans 05/19/17 13:44 Respiratory Culture - Final Left Lower Lobe Lung Karen albicans 05/19/17 07:38 Sputum Culture - Final Sputum Karen albicans - Clinical Findings Intake & Output: Intake & Output 05/24/17 05/24/17 05/24/17 07:59 15:59 23:59 Intake Total 500 / 500 900 / 900 360 / 360 Output Total 200 / 200 1350 / 1350 Balance 300 / 300 -450 / -450 360 / 360 - Attending Attestation - Attending Attestation I saw and evaluated this patient and my medical decision-making was reviewed with the Resident Physician. I agree with the documented findings, disposition and treatment plan as described except to the extent set forth below. We independently had [id number] contact with the patient. Patient seen and examined at bedside Labs, radiology, chart personally reviewed. Management was reviewed during multidisciplinary critical care rounds. RAGS LABORER:Patient is conscious oriented x 3 patient looks lot better no evidence of acute confusion . Pulm: Patient developed acute hypoxic respiratory failure with differential diagnosis inflammatory pneumonias vs atypical or typical bacterial PNA vs flare of the rheumatological condition . 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 Lines: All lines examined without evidence of infection : Dispo: Patient can transferred to step down CODE Spoke with patient doesnt want to be reintubated, Code status DNRCCA -DNI
[2017-05-24] MEDS ORDERED: Sulfamethoxazole/Trimeth Oral Soln 400-80mg/10 ML UDC PO SCH (09:00)
[2017-05-24] MEDS ORDERED: Naloxone 0.4 MG/ML INJ IVP PRN (12:11)
[2017-05-24] MEDS ORDERED: Dextrose Gel 15 GM/37.5 ML TUBE PO PRN ×2 (12:11)
[2017-05-24] MEDS ORDERED: *HR* OxyCODONE/APAP 5/325 TABLET PO PRN (12:11)
[2017-05-24] MEDS ORDERED: *HR* Dextrose 50 % in Water (Syg) 50 ML SYRINGE IVP PRN (12:11)
[2017-05-24] MEDS ORDERED: D5% in Water 1,000 ML IVC PRN (12:11)
[2017-05-24] MEDS ORDERED: *HR* Midazolam HCl 2 MG/2 ML VIAL IVP PRN (12:11)
[2017-05-24] MEDS ORDERED: *HR* Metoprolol 5 MG/5 ML VIAL IVP PRN (12:11)
[2017-05-24] MEDS ORDERED: Simethicone 80 MG TAB.CHEW PO PRN (12:11)
[2017-05-24] MEDS ORDERED: Furosemide 40 MG/4 ML VIAL IVP ONE (12:50)
[2017-05-24] MEDS ORDERED: Furosemide 40 MG/4 ML VIAL ONE (12:58)
[2017-05-24] MEDS ORDERED: methylPREDNISolone 125 MG/2 ML VIAL IVP SCH (16:00)
[2017-05-24] MEDS: Latanoprost 2.5 ML BOTTLE BOTH EYES SCH (16:23)
[2017-05-24] MEDS: MethylPREDNISolone 40 MG/ML VIAL IVP SCH (17:19)
[2017-05-24] MEDS: ALPRAZolam 1 MG TABLET PO SCH (21:11)
[2017-05-25] MEDS: Ipratropium/Albuterol Neb 3 ML IH SCH ×6 (03:38→23:35)
[2017-05-25] MEDS: *HR* Heparin 5,000 UNIT/ML VIAL SQ SCH ×3 (04:54→19:41)
[2017-05-25] MEDS: MethylPREDNISolone 40 MG/ML VIAL IVP SCH ×2 (04:54→17:20)
[2017-05-25 05:11] LABS: Basophils # 0.1 K/mcL (0.0-0.2); Basophils % 0.8 %; Eosinophils # 0.2 K/mcL (0.0-0.6); Eosinophils % 2.1 %; Hematocrit 47.8 % (35.3-44.9); Hemoglobin 15.5 g/dL (11.5-15.4); Immature Granulocytes % 5.2 % (0-4); Lymphocytes # 0.9 K/mcL (0.6-4.6); Lymphocytes % 8.2 %; Mean Corpuscular HGB Conc 32.4 g/dL (31.6-35.5); Mean Corpuscular Hemoglobin 31.5 pg (28.0-33.3); Mean Corpuscular Volume 97.2 fL (83.0-100.0); Mean Platelet Volume 9.5 fL (9.4-12.4); Monocytes # 0.4 K/mcL (0.0-1.3); Monocytes % 4.2 %; Neutrophils # 8.3 K/mcL (1.6-8.9); Platelet Count 299 K/mcL (140-400); Red Blood Count 4.92 M/mcL (3.82-4.97); Red Cell Distribution Width 15.7 % (11.5-14.5); Segmented Neutrophils % 79.5 %
[2017-05-25 05:33] LABS: BUN/Creatinine Ratio 39 (6-26); Blood Urea Nitrogen 32 mg/dL (8-23); Calcium 8.6 mg/dL (8.6-10.3); Carbon Dioxide 32 mEq/L (23-29); Chloride 99 mEq/L (98-107); Glucose 96 mg/dL (70-105); Osmolality,Calculated 291 (280-300); Potassium 4.2 mEq/L (3.5-5.1); Sodium 137 mEq/L (136-145); eGFR For African Americans > 60 (> 60); eGFR For Non-African Americans > 60 (> 60)
[2017-05-25] MEDS: Insulin LISPRO 300 UNITS/3 ML VIAL SQ SCH ×3 (05:35→18:11)
[2017-05-25 05:39] LABS: Platelet Estimate Normal (Normal); Toxic Granulation Present (Not Present)
[2017-05-25] MEDS: Sulfamethoxazole/Trimeth Oral Soln 400-80mg/10 ML UDC PO SCH (07:34)
[2017-05-25] MEDS: Aspirin Enteric Coated 325 MG Tablet PO SCH (07:34)
[2017-05-25] MEDS: Lactobacillus 1 EACH CAP.SPRINK PO SCH (07:34)
[2017-05-25] MEDS ORDERED: Ondansetron 4 MG/2 ML VIAL IVP ONE (08:26)
[2017-05-25] MEDS ORDERED: Pantoprazole 40 MG VIAL IVP SCH (09:00)
[2017-05-25] MEDS ORDERED: Ondansetron 4 MG/2 ML VIAL IVP PRN (12:17)
--- NOTE | 2017-05-25 16:41 | Pulmonology Progress Note ---
<Micah Barkely - Last Filed: 05/25/17 17:29> Date of Encounter: 05/25/17 Time of Encounter: 09:15 Assessment and Plan (1) Acute respiratory failure Current Visit: Yes Status: Acute Interval: Acute respiratory failure likely secondary to community acquired pneumonia. Increased work of breathing on bipap; patient agreeable to short-term intubation on 05/19 in light of code status Patient extubated 05/21. Yeast per LLL BAL, without + bld culture, and patient presentation is overall improving, likely a contaminant. Plan: Solumedrol in setting of possible ARDS after steroid taper prior to admission. 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 Plan for clinical assessment outpatient with Rheumatology follow-up. Rheumatology updated regarding current admission 05/23/17. We are continuing PCP Prophylaxis with TMP-SMX (she is currently on Double- Strength formulation PO) recommended through duration of current steroid taper. (Currently 40mg q12 since 05/24) Awaiting bed availability, deemed ready for step-down 05/24, has transfer orders/ admitter aware Qualifiers: Respiratory failure complication: hypoxia Qualified Code(s): J96.01 - Acute respiratory failure with hypoxia (2) Altered mental status Current Visit: Yes Status: Acute Mild change in baseline mentation on 05/23, improved today 05/24. Early dementia vs steroid mood/mentation effects vs GAS BRAZER CT head -negative for acute changes, no interval change Continue steroid taper, on day 2 of 40mg q12, down from 40mg q8 Qualifiers: Altered mental status type: unspecified Qualified Code(s): R41.82 - Altered mental status, unspecified (3) Pneumonia Current Visit: Yes Status: Acute Most recent CXR 05/22 shows bilateral airspace disease. Clinically improved, no wt ct or fever. Qualifiers: Pneumonia type: due to unspecified organism Laterality: bilateral Lung location: unspecified part of lung Qualified Code(s): J18.9 - Pneumonia, unspecified organism (4) Hypoxia Current Visit: Yes Status: Acute Secondary to pneumonia. Plan as above. (5) DVT prophylaxis Current Visit: Yes Status: Acute SQ Heparin Subjective Principal diagnosis: acute respiratory failure Interval history: Extubated 05/21; tolerating nasal cannula since then; currently 4L. Has good appetite, however, easily nauseated. No abdominal pain or chest pain. Objective PUL Vital signs: Last Vital Signs Temp 97.7 F 05/25/17 15:49 Pulse 92 05/25/17 15:16 Resp 16 05/25/17 16:14 BP 120/63 05/25/17 15:16 Pulse Ox 95 05/25/17 16:14 General appearance: no acute distress, alert Eyes: nonicteric ENT: oropharynx moist Neck: supple Effort: normal (on 4L NC) Auscultation: bilateral: clear Cardiovascular: regular rate and rhythm Gastrointestinal: soft, non-tender Integumentary: normal Extremities: no cyanosis Musculoskeletal: no deformities non-focal exam affect normal Results - Laboratory Findings CBC and BMP: 05/25/17 05:00 05/25/17 05:00 ABG ABG pH 7.36 pH Units (7.32-7.45) 05/21/17 04:11 ABG pCO2 49 mmHg (35-45) H 05/21/17 04:11 ABG pO2 73 mmHg (85-104) L 05/21/17 04:11 ABG O2 Saturation 94 % (95-98) L 05/21/17 04:11 Abnormal lab findings: Abnormal lab results Hgb 15.5 g/dL (11.5-15.4) H 05/25/17 05:00 Hct 47.8 % (35.3-44.9) H 05/25/17 05:00 RDW 15.7 % (11.5-14.5) H 05/25/17 05:00 Immature Gran % 5.2 % (0-4) H 05/25/17 05:00 Metamyelocytes % 2.0 % (0) H 05/24/17 03:38 Nucleated RBCs/100 WBC 0.2 /100 WBC (0) H 05/21/17 04:00 Reactive Lymphocytes Present (Not Present) A 05/22/17 03:00 Toxic Granulation Present (Not Present) A 05/25/17 05:00 Immature Plt Fraction 7.7 % (1.1-6.1) H 05/21/17 04:00 Matteo Cells 2+ (Not Present) A 05/18/17 08:35 ESR 64 mm/hr (0-15) H 05/16/17 17:03 ABG pCO2 49 mmHg (35-45) H 05/21/17 04:11 ABG pO2 73 mmHg (85-104) L 05/21/17 04:11 ABG HCO3 28 mEq/L (21-27) H 05/21/17 04:11 ABG Total CO2 29 mEq/L (20-26) H 05/21/17 04:11 ABG O2 Saturation 94 % (95-98) L 05/21/17 04:11 Carbon Dioxide 32 mEq/L (23-29) H 05/25/17 05:00 BUN 32 mg/dL (8-23) H 05/25/17 05:00 BUN/Creatinine Ratio 39 (6-26) H 05/25/17 05:00 POC Glucose 132 (58-89) H 05/25/17 10:56 Alkaline Phosphatase 154 Units/L (34-104) H 05/20/17 03:30 Troponin I 0.04 ng/mL (< 0.04) H* 05/16/17 17:03 B-Natriuretic Peptide 176 pg/mL (Less than 100) H 05/16/17 19:47 Serum Total Protein 5.1 g/dL (6.4-8.9) L 05/20/17 03:30 Albumin 2.5 g/dL (3.5-5.7) L 05/20/17 03:30 Albumin/Globulin Ratio 1.0 (1.1-2.2) L 05/20/17 03:30 Urine Clarity Cloudy (Clear) A 05/16/17 17:21 Ur Specific [place] > 1.030 (1.010-1.025) H 05/16/17 17:21 Urine Protein 100 mg/dL (Neg-Trace) H 05/16/17 17:21 Urine Ketones Trace mg/dL (Negative) H 05/16/17 17:21 Urine Bilirubin Small (Negative) H 05/16/17 17:21 Urine Microscopic WBC 5-15 per hpf (0-3) H 05/16/17 17:21 Ur Squamous Epith Cells Many per lpf (None-Few) H 05/16/17 17:21 Hyaline Casts Many per lpf (None-Few) H 05/16/17 17:21 Fluid Appearance Slightly Hazy (Clear) A 05/19/17 13:44 Vancomycin Trough 6.0 mcg/mL (10-20) L 05/18/17 08:35 - Microbiology Findings Microbiology Findings: Microbiology, Last 48 Hours 05/19/17 13:43 Acid Fast Stain - Final Right Lower Lobe Lung 05/19/17 13:43 Fungal Culture - Preliminary Right Lower Lobe Lung Karen albicans 05/19/17 13:43 Gram Stain - Final Right Lower Lobe Lung Respiratory Culture - Final Karen albicans 05/19/17 13:44 Acid Fast Stain - Final Left Lower Lobe Lung 05/19/17 13:44 Fungal Culture - Preliminary Left Lower Lobe Lung Karen albicans 05/19/17 13:44 Respiratory Culture - Final Left Lower Lobe Lung Karen albicans - Clinical Findings Intake & Output: Intake & Output 05/25/17 05/25/17 05/25/17 07:59 15:59 23:59 Output Total 250 / 250 250 / 250 Balance -250 / -250 -250 / -250 Consult Discharge Plan - Plan Referrals: Anabel Rasmussen, DIE ENGRAVER [Primary Care Provider] - <Vladimir Thomas - Last Filed: 05/25/17 22:55> Date of Encounter: 05/25/17 Objective PUL Vital signs: Last Vital Signs Temp 97.7 F 05/25/17 21:21 Pulse 86 05/25/17 20:00 Resp 18 05/25/17 20:00 BP 112/84 05/25/17 20:00 Pulse Ox 96 05/25/17 20:00 Results - Laboratory Findings CBC and BMP: 05/25/17 05:00 05/25/17 05:00 ABG ABG pH 7.36 pH Units (7.32-7.45) 05/21/17 04:11 ABG pCO2 49 mmHg (35-45) H 05/21/17 04:11 ABG pO2 73 mmHg (85-104) L 05/21/17 04:11 ABG O2 Saturation 94 % (95-98) L 05/21/17 04:11 Abnormal lab findings: Abnormal lab results Hgb 15.5 g/dL (11.5-15.4) H 05/25/17 05:00 Hct 47.8 % (35.3-44.9) H 05/25/17 05:00 RDW 15.7 % (11.5-14.5) H 05/25/17 05:00 Immature Gran % 5.2 % (0-4) H 05/25/17 05:00 Metamyelocytes % 2.0 % (0) H 05/24/17 03:38 Nucleated RBCs/100 WBC 0.2 /100 WBC (0) H 05/21/17 04:00 Reactive Lymphocytes Present (Not Present) A 05/22/17 03:00 Toxic Granulation Present (Not Present) A 05/25/17 05:00 Immature Plt Fraction 7.7 % (1.1-6.1) H 05/21/17 04:00 Matteo Cells 2+ (Not Present) A 05/18/17 08:35 ESR 64 mm/hr (0-15) H 05/16/17 17:03 ABG pCO2 49 mmHg (35-45) H 05/21/17 04:11 ABG pO2 73 mmHg (85-104) L 05/21/17 04:11 ABG HCO3 28 mEq/L (21-27) H 05/21/17 04:11 ABG Total CO2 29 mEq/L (20-26) H 05/21/17 04:11 ABG O2 Saturation 94 % (95-98) L 05/21/17 04:11 Carbon Dioxide 32 mEq/L (23-29) H 05/25/17 05:00 BUN 32 mg/dL (8-23) H 05/25/17 05:00 BUN/Creatinine Ratio 39 (6-26) H 05/25/17 05:00 POC Glucose 93 (58-89) H 05/25/17 18:07 Alkaline Phosphatase 154 Units/L (34-104) H 05/20/17 03:30 Troponin I 0.04 ng/mL (< 0.04) H* 05/16/17 17:03 B-Natriuretic Peptide 176 pg/mL (Less than 100) H 05/16/17 19:47 Serum Total Protein 5.1 g/dL (6.4-8.9) L 05/20/17 03:30 Albumin 2.5 g/dL (3.5-5.7) L 05/20/17 03:30 Albumin/Globulin Ratio 1.0 (1.1-2.2) L 05/20/17 03:30 Urine Clarity Cloudy (Clear) A 05/16/17 17:21 Ur Specific [place] > 1.030 (1.010-1.025) H 05/16/17 17:21 Urine Protein 100 mg/dL (Neg-Trace) H 05/16/17 17:21 Urine Ketones Trace mg/dL (Negative) H 05/16/17 17:21 Urine Bilirubin Small (Negative) H 05/16/17 17:21 Urine Microscopic WBC 5-15 per hpf (0-3) H 05/16/17 17:21 Ur Squamous Epith Cells Many per lpf (None-Few) H 05/16/17 17:21 Hyaline Casts Many per lpf (None-Few) H 05/16/17 17:21 Fluid Appearance Slightly Hazy (Clear) A 05/19/17 13:44 Vancomycin Trough 6.0 mcg/mL (10-20) L 05/18/17 08:35 - Microbiology Findings Microbiology Findings: Microbiology, Last 48 Hours 05/19/17 13:43 Acid Fast Stain - Final Right Lower Lobe Lung 05/19/17 13:43 Fungal Culture - Preliminary Right Lower Lobe Lung Karen albicans 05/19/17 13:43 Gram Stain - Final Right Lower Lobe Lung Respiratory Culture - Final Karen albicans 05/19/17 13:44 Acid Fast Stain - Final Left Lower Lobe Lung 05/19/17 13:44 Fungal Culture - Preliminary Left Lower Lobe Lung Karen albicans 05/19/17 13:44 Respiratory Culture - Final Left Lower Lobe Lung Karen albicans - Clinical Findings Intake & Output: Intake & Output 05/25/17 05/25/17 05/25/17 07:59 15:59 23:59 Output Total 250 / 250 250 / 250 200 / 200 Balance -250 / -250 -250 / -250 -200 / -200 - Attending Attestation - Attending Attestation I saw and evaluated this patient and my medical decision-making was reviewed with the Resident Physician. I agree with the documented findings, disposition and treatment plan as described except to the extent set forth below. We independently had [id number] contact with the patient. Patient seen and examined at bedside Labs, radiology, chart personally reviewed. Management was reviewed during multidisciplinary critical care rounds. GAS BRAZER:Patient is conscious oriented x 3 patient looks lot better no evidence of acute confusion . Pulm: Patient developed acute hypoxic respiratory failure with differential diagnosis inflammatory pneumonias vs atypical or typical bacterial PNA vs flare of the rheumatological condition . To liberate steroids as tolerated will transition to bactrim prophylactic dose until she is on steroids Will give 3 week steroid taper Cards:Hemodynamically stable diurese as tolerated FEN-GI: Advance diet as tolerated Renal:Labs and output reviewed ID:To continue bactrim as prophylactic dose till the course of steroids Heme/Onc:Patient had the aoritis which was treated by Dr.Van Portillo spoke with him she doesnt need steroid treatment for GCA or aoritis will taper as over 3 weeks Endo: Glucose Monitored Integ/MSK: Skin Care per routine ICU Nursing Protocol to prevent ulcers. Lines: All lines examined without evidence of infection : Dispo: Patient can transferred to step down CODE Spoke with patient doesnt want to be reintubated, Code status DNRCCA -DNI
[2017-05-25] MEDS: Latanoprost 2.5 ML BOTTLE BOTH EYES SCH (17:21)
[2017-05-25] MEDS: ALPRAZolam 1 MG TABLET PO SCH (19:41)
[2017-05-26] MEDS: Insulin LISPRO 300 UNITS/3 ML VIAL SQ SCH ×4 (00:56→16:52)
[2017-05-26] MEDS: Ipratropium/Albuterol Neb 3 ML IH SCH ×5 (03:40→20:11)
[2017-05-26 04:08] LABS: Basophils # 0.1 K/mcL (0.0-0.2); Basophils % 0.7 %; Eosinophils % 0.3 %; Hematocrit 46.9 % (35.3-44.9); Hemoglobin 15.2 g/dL (11.5-15.4); Immature Granulocytes % 4.5 % (0-4); Lymphocytes # 0.6 K/mcL (0.6-4.6); Lymphocytes % 6.1 %; Mean Corpuscular HGB Conc 32.4 g/dL (31.6-35.5); Mean Corpuscular Hemoglobin 31.3 pg (28.0-33.3); Mean Corpuscular Volume 96.7 fL (83.0-100.0); Mean Platelet Volume 9.8 fL (9.4-12.4); Monocytes # 0.6 K/mcL (0.0-1.3); Monocytes % 5.3 %; Neutrophils # 8.7 K/mcL (1.6-8.9); Platelet Count 288 K/mcL (140-400); Red Blood Count 4.85 M/mcL (3.82-4.97); Red Cell Distribution Width 15.2 % (11.5-14.5); Segmented Neutrophils % 83.1 %
[2017-05-26 04:24] LABS: BUN/Creatinine Ratio 44 (6-26); Blood Urea Nitrogen 32 mg/dL (8-23); Calcium 8.5 mg/dL (8.6-10.3); Carbon Dioxide 27 mEq/L (23-29); Chloride 101 mEq/L (98-107); Glucose 115 mg/dL (70-105); Osmolality,Calculated 288 (280-300); Potassium 4.6 mEq/L (3.5-5.1); Sodium 135 mEq/L (136-145); eGFR For African Americans > 60 (> 60); eGFR For Non-African Americans > 60 (> 60)
[2017-05-26] MEDS: *HR* Heparin 5,000 UNIT/ML VIAL SQ SCH ×3 (06:16→20:49)
[2017-05-26] MEDS: MethylPREDNISolone 40 MG/ML VIAL IVP SCH ×2 (06:16→17:02)
[2017-05-26] MEDS ORDERED: Pantoprazole 40 MG VIAL IVP SCH (09:00)
[2017-05-26] MEDS: Sulfamethoxazole/Trimeth Oral Soln 400-80mg/10 ML UDC PO SCH (09:07)
[2017-05-26] MEDS: Lactobacillus 1 EACH CAP.SPRINK PO SCH (09:07)
[2017-05-26] MEDS: Aspirin Enteric Coated 325 MG Tablet PO SCH (09:07)
--- NOTE | 2017-05-26 11:04 | Internal Med Progress Note ---
<Alis Guillaume - Last Filed: 05/26/17 11:01> Date of Encounter: 05/26/17 Time of Encounter: 11:02 - Assessment and plan (1) Acute respiratory failure Current Visit: Yes Status: Acute Assessment and plan: arrived with chief complaint of headache and shortness of breath. Was started on antibiotics for treatment for community acquired pneumonia. Chest CT from 05/16/17 showed extensive diffuse lung parenchymal disease, concern for possible ARDS, no evidence of acute PE. Elevated troponin for likely secondary to demand ischemia and setting of acute respiratory failure. Patient was intubated in the ICU and completed course of broad-spectrum antibiotics. Blood cultures unremarkable. Sputum culture positive for yeast, possible contamination. Influenza negative, bronchoscopy on 05/19/17 showed bilateral PNA, mucous plug. Plan: d/C bedolla today. PT/OT up to chair, ambulate as tolerated. Wean down oxygen as tolerated will continue with long steroid taper. Currently she is on day 3 of 40mg methylprednisolone BID. Plan to switch to oral steroids tomorrow if tolerated. Discharge planning to on [facility] of [facility] in progress, likely discharge will be in 1-2 days. Continue with Bactrim for PCP prophylaxis for the entire duration of steroid taper. Qualifiers: Respiratory failure complication: hypoxia Qualified Code(s): J96.01 - Acute respiratory failure with hypoxia (2) Pneumonia Current Visit: Yes Status: Acute Assessment and plan: Plan as above Qualifiers: Pneumonia type: due to unspecified organism Laterality: bilateral Lung location: unspecified part of lung Qualified Code(s): J18.9 - Pneumonia, unspecified organism (3) Altered mental status Current Visit: Yes Status: Resolved Assessment and plan: CT had showed no acute changes, stable chronic small vessel ischemic white matter disease. Currently resolved. Continue to monitor. Qualifiers: Altered mental status type: unspecified Qualified Code(s): R41.82 - Altered mental status, unspecified (4) DVT prophylaxis Current Visit: Yes Status: Acute Assessment and plan: heparin SQ - Subjective Interval history: [age] female evaluated at bedside. Patient does admit to some nausea today. She denies vomiting, diarrhea, fever, chills, chest pain. She admits to some shortness of breath. - Constitutional Vitals: Temp Pulse Resp BP Pulse Ox 98.9 F 70 16 99/69 94 05/26/17 10:58 05/26/17 10:58 05/26/17 10:58 05/26/17 10:58 05/26/17 10:58 General appearance: Present: A&O X 3, pleasant, no acute distress, answers questions appropriately - Head Head exam: Present: atraumatic, normocephalic - Neck Neck exam general surgery: Present: supple, trachea midline - Respiratory Respiratory exam: Present: rales, rhonchi - Cardiovascular Cardiovascular exam: Present: RRR, +S1, +S2 - GI/Abdominal GI/Abdominal exam: Present: normal bowel sounds, soft. Absent: distended, tenderness - Extremities Exam Extremities exam: Absent: cyanotic, pedal edema - Neurological Exam Neurological exam: Present: alert, oriented X3, no focal deficits - Skin Skin exam: Present: intact Internal Medicine: Result - Labs CBC & Chem 7: 05/26/17 03:49 05/26/17 03:49 Labs: Short CBC 05/26/17 Range/Units 03:49 WBC 10.5 (4.3-11.1) K/mcL Hgb 15.2 (11.5-15.4) g/dL Hct 46.9 H (35.3-44.9) % Plt Count 288 (140-400) K/mcL Neutrophils # 8.7 (1.6-8.9) K/mcL BMP 05/26/17 03:49 Sodium 135 L Potassium 4.6 Chloride 101 Carbon Dioxide 27 BUN 32 H Creatinine 0.73 Glucose 115 H Calcium 8.5 L - ABG Interpretation ABG results: ABG ABG pH 7.36 pH Units (7.32-7.45) 05/21/17 04:11 ABG pCO2 49 mmHg (35-45) H 05/21/17 04:11 ABG pO2 73 mmHg (85-104) L 05/21/17 04:11 ABG O2 Saturation 94 % (95-98) L 05/21/17 04:11 Consult Discharge Plan - Plan Referrals: Anabel Rasmussen CNP [Primary Care Provider] - 05/31/17 10:00 am <Onesimo Augustin - Last Filed: 05/26/17 18:42> Date of Encounter: 05/26/17 - Constitutional Vitals: Temp Pulse Resp BP Pulse Ox 98.9 F 93 18 129/103 92 05/26/17 16:19 05/26/17 16:19 05/26/17 16:19 05/26/17 16:19 05/26/17 16:19 Internal Medicine: Result - Labs CBC & Chem 7: 05/26/17 03:49 05/26/17 03:49 Labs: Short CBC 05/26/17 Range/Units 03:49 WBC 10.5 (4.3-11.1) K/mcL Hgb 15.2 (11.5-15.4) g/dL Hct 46.9 H (35.3-44.9) % Plt Count 288 (140-400) K/mcL Neutrophils # 8.7 (1.6-8.9) K/mcL BMP 05/26/17 03:49 Sodium 135 L Potassium 4.6 Chloride 101 Carbon Dioxide 27 BUN 32 H Creatinine 0.73 Glucose 115 H Calcium 8.5 L - ABG Interpretation ABG results: ABG ABG pH 7.36 pH Units (7.32-7.45) 05/21/17 04:11 ABG pCO2 49 mmHg (35-45) H 05/21/17 04:11 ABG pO2 73 mmHg (85-104) L 05/21/17 04:11 ABG O2 Saturation 94 % (95-98) L 05/21/17 04:11 - Attending Attestation I examined this patient and my medical decision-making was reviewed with the Resident Physician. I agree with the documented findings, disposition and treatment plan as described except to the extent set forth below.
[2017-05-26] MEDS ORDERED: Sennosides 8.6 MG TABLET PO PRN (11:24)
[2017-05-26] MEDS ORDERED: Insulin LISPRO 300 UNITS/3 ML VIAL SQ SCH ×2 (17:00→21:00)
[2017-05-26] MEDS: ALPRAZolam 1 MG TABLET PO SCH (20:49)
[2017-05-26] MEDS: Latanoprost 2.5 ML BOTTLE BOTH EYES SCH (20:49)
[2017-05-27] MEDS: Ipratropium/Albuterol Neb 3 ML IH SCH ×7 (00:06→23:51)
[2017-05-27] MEDS: *HR* Heparin 5,000 UNIT/ML VIAL SQ SCH ×2 (06:02→17:06)
[2017-05-27] MEDS: MethylPREDNISolone 40 MG/ML VIAL IVP SCH ×2 (06:02→08:59)
--- NOTE | 2017-05-27 07:45 | Internal Med Progress Note ---
Date of Encounter: 05/27/17 Time of Encounter: 07:43 - Assessment and plan (1) Acute respiratory failure Current Visit: Yes Status: Acute Qualifiers: Respiratory failure complication: hypoxia Qualified Code(s): J96.01 - Acute respiratory failure with hypoxia (2) CAP (community acquired pneumonia) Current Visit: Yes Status: Resolved Assessment and plan: The most part she continues to respond and he will both the community-acquired pneumonia and ARDS picture. Still is maintaining fair amount of oxygen, will decrease her steroids today continue to increase her activity. Continue pulmonary toilet. I suspect she still a good 2 days from discharge. 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 This was an outpatient diagnosis prior to her hospitalization. - Subjective Interval history: Sitting up at the bedside, able to go to the bathroom with minimal assistance, still somewhat fatigued and dyspneic on doing so. Satting currently around 90% on 3 L. No new questions or concerns. - Constitutional Vitals: Temp Pulse Resp BP Pulse Ox 98 F 73 20 126/92 93 05/27/17 06:51 05/27/17 06:51 05/27/17 06:51 05/27/17 06:51 05/27/17 06:51 General appearance: Present: cachectic, A&O X 3, pleasant, no acute distress, answers questions appropriately - Neck Neck exam general surgery: Present: full ROM, supple, trachea midline - Respiratory Additional comments: Minimal tachypnea as she just got up, minimal rales right base, left base clear. - Cardiovascular Cardiovascular exam: Present: RRR, +S1, +S2. Absent: JVD, tachycardia - GI/Abdominal GI/Abdominal exam: Present: soft, no peritoneal signs. Absent: splenomegaly, tenderness - Extremities Exam Extremities exam: Present: normal inspection, warm. Absent: tenderness Additional comments: Tibialis scars, mild, bilateral, healing well. Internal Medicine: Result - Labs CBC & Chem 7: 05/26/17 03:49 05/26/17 03:49 - ABG Interpretation ABG results: ABG ABG pH 7.36 pH Units (7.32-7.45) 05/21/17 04:11 ABG pCO2 49 mmHg (35-45) H 05/21/17 04:11 ABG pO2 73 mmHg (85-104) L 05/21/17 04:11 ABG O2 Saturation 94 % (95-98) L 05/21/17 04:11 Consult Discharge Plan - Plan Referrals: Anabel Rasmussen CNP [Primary Care Provider] - 05/31/17 10:00 am
[2017-05-27] MEDS: Aspirin Enteric Coated 325 MG Tablet PO SCH (08:58)
[2017-05-27] MEDS: Sulfamethoxazole/Trimeth Oral Soln 400-80mg/10 ML UDC PO SCH (08:58)
[2017-05-27] MEDS: Lactobacillus 1 EACH CAP.SPRINK PO SCH (08:58)
[2017-05-27] MEDS: Latanoprost 2.5 ML BOTTLE BOTH EYES SCH (21:38)
[2017-05-27] MEDS: ALPRAZolam 0.5 MG TABLET PO SCH (21:39)
[2017-05-28] MEDS: Ipratropium/Albuterol Neb 3 ML IH SCH ×5 (04:33→20:13)
[2017-05-28] MEDS: *HR* Heparin 5,000 UNIT/ML VIAL SQ SCH ×3 (05:31→18:03)
[2017-05-28] MEDS: Insulin LISPRO 300 UNITS/3 ML VIAL SQ SCH (07:42)
--- NOTE | 2017-05-28 08:11 | Internal Med Progress Note ---
Date of Encounter: 05/28/17 Time of Encounter: 08:09 - Assessment and plan (1) Acute respiratory failure Current Visit: Yes Status: Acute Assessment and plan: Continues very slow improvement, I backed off the steroids yesterday we will keep those the same dose today. We will obtain chest x-ray to make sure there is stability. I suspect she is a good 24-48 hours from discharge at this time. We will modify medications and hopefully improve the anorexia. 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 Satting currently around 90% on 3 L. No new questions or concerns. She looks a bit stronger today than yesterday, still satting about 90% without oxygen. Still with considerable anorexia, this may be due to critical illness and/or some other medication which we will attempt to fine-tune. She is anxious for discharge, I believe she is going to [facility], still somewhat weak and on IV steroids. - Constitutional Vitals: Temp Pulse Resp BP Pulse Ox 97.7 F 78 18 99/71 95 05/28/17 07:20 05/28/17 07:20 05/28/17 07:20 05/28/17 07:20 05/28/17 07:20 General appearance: Present: cachectic, A&O X 3, pleasant, no acute distress, answers questions appropriately - Neck Neck exam general surgery: Present: full ROM, supple, trachea midline - Respiratory Respiratory exam: Present: decreased breath sounds. Absent: wheezes, tachypnea Additional comments: Decreased breath sounds in the left base, minimal rhonchus changes in the right base. - Cardiovascular Cardiovascular exam: Present: RRR, +S1, +S2. Absent: gallop, JVD, tachycardia - GI/Abdominal GI/Abdominal exam: Present: normal bowel sounds, soft, no peritoneal signs Internal Medicine: Result - Labs CBC & Chem 7: 05/26/17 03:49 05/26/17 03:49 - ABG Interpretation ABG results: ABG ABG pH 7.36 pH Units (7.32-7.45) 05/21/17 04:11 ABG pCO2 49 mmHg (35-45) H 05/21/17 04:11 ABG pO2 73 mmHg (85-104) L 05/21/17 04:11 ABG O2 Saturation 94 % (95-98) L 05/21/17 04:11 Consult Discharge Plan - Plan Additional Instructions: We will be going to [facility] upon discharge Referrals: Anabel Rasmussen CNP [Primary Care Provider] - 05/31/17 10:00 am
[2017-05-28] MEDS: Sulfamethoxazole/Trimeth Oral Soln 400-80mg/10 ML UDC PO SCH (08:12)
[2017-05-28] MEDS: Lactobacillus 1 EACH CAP.SPRINK PO SCH (08:12)
[2017-05-28] MEDS: Aspirin Enteric Coated 325 MG Tablet PO SCH (08:12)
[2017-05-28] MEDS: MethylPREDNISolone 40 MG/ML VIAL IVP SCH (08:13)
[2017-05-28] MEDS: Ondansetron 4 MG/2 ML VIAL IVP SCH ×2 (12:18→18:05)
[2017-05-28] MEDS: ALPRAZolam 0.5 MG TABLET PO SCH (21:14)
[2017-05-28] MEDS: Latanoprost 2.5 ML BOTTLE BOTH EYES SCH (21:14)
[2017-05-29] MEDS: Ondansetron 4 MG/2 ML VIAL IVP SCH ×3 (00:08→13:09)
[2017-05-29] MEDS: Ipratropium/Albuterol Neb 3 ML IH SCH ×5 (00:17→15:56)
[2017-05-29 01:40] LABS: Bilirubin,Urine Negative (Negative); Blood,Urine Large (Negative); Clarity,Urine Cloudy (Clear); Color,Urine Dark Yellow (Yellow); Glucose,Urine (UA) Normal (Normal); Ketones,Urine Negative (Negative); Leukocyte Esterase,Urine Negative (Negative); Nitrite,Urine Negative (Negative); Protein,Urine 100 mg/dL (Neg-Trace); Specific Gravity,Urine 1.028 (1.010-1.025); Urobilinogen,Urine Normal (Normal)
[2017-05-29 01:42] LABS: RBC,Urine TNTC per hpf (0-3); Squamous Epithelial Cell,Urine Many per lpf (None-Few); WBC,Urine 15-30 per hpf (0-3)
[2017-05-29 01:58] LABS: Bacteria,Urine Few per hpf (None-Few)
[2017-05-29 03:24] LABS: Basophils # 0.1 K/mcL (0.0-0.2); Basophils % 0.9 %; Eosinophils # 0.1 K/mcL (0.0-0.6); Eosinophils % 0.7 %; Hematocrit 44.9 % (35.3-44.9); Hemoglobin 14.8 g/dL (11.5-15.4); Lymphocytes # 1.1 K/mcL (0.6-4.6); Lymphocytes % 9.2 %; Mean Corpuscular Hemoglobin 31.6 pg (28.0-33.3); Mean Corpuscular Volume 95.7 fL (83.0-100.0); Monocytes # 1.1 K/mcL (0.0-1.3); Monocytes % 9.1 %; Neutrophils # 8.9 K/mcL (1.6-8.9); Platelet Count 227 K/mcL (140-400); Red Blood Count 4.69 M/mcL (3.82-4.97); Red Cell Distribution Width 15.1 % (11.5-14.5); Segmented Neutrophils % 75.1 %
[2017-05-29 03:33] LABS: BUN/Creatinine Ratio 34 (6-26); Blood Urea Nitrogen 32 mg/dL (8-23); Calcium 8.8 mg/dL (8.6-10.3); Carbon Dioxide 23 mEq/L (23-29); Chloride 102 mEq/L (98-107); Glucose 90 mg/dL (70-105); Osmolality,Calculated 280 (280-300); Potassium 4.1 mEq/L (3.5-5.1); Sodium 132 mEq/L (136-145); eGFR For African Americans > 60 (> 60); eGFR For Non-African Americans 59 (> 60)
[2017-05-29] MEDS: *HR* Heparin 5,000 UNIT/ML VIAL SQ SCH ×2 (05:58→18:24)
[2017-05-29] MEDS: Lactobacillus 1 EACH CAP.SPRINK PO SCH (07:42)
[2017-05-29] MEDS: Aspirin Enteric Coated 325 MG Tablet PO SCH (07:42)
[2017-05-29] MEDS: MethylPREDNISolone 40 MG/ML VIAL IVP SCH (07:42)
--- NOTE | 2017-05-29 08:16 | Internal Med Progress Note ---
<Cyril Pack - Last Filed: 05/29/17 11:46> Date of Encounter: 05/29/17 Time of Encounter: 08:14 - Assessment and plan (1) Acute respiratory failure Current Visit: Yes Status: Acute Assessment and plan: Acute Respiratory Failure- Chest X-ray is stable. Not worsening. Clinically, the patient is afebrile, no symptoms of cough. Patient's oxygen saturation is stable at 90% on room air. Leukocytosis os 11.9 on CBC. Will continue to monitor as patient is afebrile, does not have any symptoms. Continue bactrim for PCP prophylaxis while on steroids. She will take bactrim daily until she follows up with Dr. Smith. Patient will be discharged today. CAP- resolving clinically with stable chest x-ray that does not reveal any worsening. aortitis- will d/c solu-medrol and start prednisone PO 40 mg daily and taper. Thrush- Immunosupressed with steroids for the aortitis. Will start nystatin swish and swallow as well as magic mouthwash for symptom control Hematuria- previous UA on 05/16 did not reveal any hematuria on urinalysis. Probably due to trauma from the straight cath. UA does not reveal signs of infection at this time. No flank pain, urinary frequency, or urgency. Will continue to monitor. Kidney function is stable. 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 Nurse notes patchy blisters in mouth. Never had these issues before. Denies history of HSV. Denies cough, SOB, states she is feeling great other than the pain with swallowing. Still has oxygen saturation of 90% on room air. Patient states that she is ready to go to [facility] for rehabilitation. - Constitutional Vitals: Temp Pulse Resp BP Pulse Ox 98.2 F 75 20 107/76 86 05/29/17 06:46 05/29/17 06:46 05/29/17 07:27 05/29/17 06:46 05/29/17 07:27 General appearance: Present: A&O X 3, pleasant, no acute distress, answers questions appropriately - Head Head exam: Present: atraumatic - ENT Additional comments: Oropharynx has blisters. white/yellow plaque on tongue and roof of mouth - Respiratory Respiratory exam: Present: CTAB. Absent: accessory muscle use, rales, respiratory distress - Cardiovascular Cardiovascular exam: Present: +S1, +S2. Absent: JVD, RRR, rubs - GI/Abdominal GI/Abdominal exam: Present: soft. Absent: distended, rebound - Neurological Exam Neurological exam: Present: alert. Absent: altered Internal Medicine: Result - Labs CBC & Chem 7: 05/29/17 03:04 05/29/17 03:04 Labs: Short CBC 05/29/17 Range/Units 03:04 WBC 11.9 H (4.3-11.1) K/mcL Hgb 14.8 (11.5-15.4) g/dL Hct 44.9 (35.3-44.9) % Plt Count 227 (140-400) K/mcL Neutrophils # 8.9 (1.6-8.9) K/mcL BMP 05/29/17 03:04 Sodium 132 L Potassium 4.1 Chloride 102 Carbon Dioxide 23 BUN 32 H Creatinine 0.93 Glucose 90 Calcium 8.8 Urine 05/29/17 Range/Units 01:15 Urine Color Dark Yellow (Yellow) Urine Clarity Cloudy A (Clear) Urine pH 6.0 (5.0-8.0) pH Units Ur Specific [place] 1.028 H (1.010-1.025) Urine Protein 100 H (Neg-Trace) mg/dL Urine Glucose (UA) Normal (Normal) mg/dL - ABG Interpretation ABG results: ABG ABG pH 7.36 pH Units (7.32-7.45) 05/21/17 04:11 ABG pCO2 49 mmHg (35-45) H 05/21/17 04:11 ABG pO2 73 mmHg (85-104) L 05/21/17 04:11 ABG O2 Saturation 94 % (95-98) L 05/21/17 04:11 - Impressions Impressions Chest X-Ray 05/28/17 08:16 IMPRESSION: Improvement in diffuse airspace disease suggesting improving edema. There is more confluent airspace disease at the left lung base however concerning for pneumonia with residual involvement in the right lower lobe. D/ / Jean Carlos Tran MD / Jean Carlos Tran MD Interpreting Provider: Jean Carlos Tran MD - Diagnostic Studies Chest x-ray Status: image reviewed by me Consult Discharge Plan - Plan Instructions: Pneumonia (DC) Additional Instructions: We will be going to [facility] upon discharge Referrals: Anabel Rasmussen, ENAMEL APPLIER [Primary Care Provider] - (patient is going to [facility] no PCP appointment needed) Prescriptions: Lactobacillus [Culturelle] 1 each PO DAILY #30 cap.sprink Magic Mouthwash 5 ml PO TID PRN #1 bottle PRN Reason: Pain Nystatin [Nystatin Suspension] 5 ml PO QID #120 ml predniSONE [PredniSONE] 40 mg PO TAPER #20 tablet Sulfamethoxazole/Trimeth DS [Bactrim DS] 1 each PO DAILY #30 tablet <Jose Aguilera H - Last Filed: 05/29/17 15:36> Date of Encounter: 05/29/17 - Constitutional Vitals: Temp Pulse Resp BP Pulse Ox 97.9 F 75 16 112/70 93 05/29/17 10:54 05/29/17 10:54 05/29/17 11:04 05/29/17 11:04 05/29/17 11:04 Internal Medicine: Result - Labs CBC & Chem 7: 05/29/17 03:04 05/29/17 03:04 Labs: Short CBC 05/29/17 Range/Units 03:04 WBC 11.9 H (4.3-11.1) K/mcL Hgb 14.8 (11.5-15.4) g/dL Hct 44.9 (35.3-44.9) % Plt Count 227 (140-400) K/mcL Neutrophils # 8.9 (1.6-8.9) K/mcL BMP 05/29/17 03:04 Sodium 132 L Potassium 4.1 Chloride 102 Carbon Dioxide 23 BUN 32 H Creatinine 0.93 Glucose 90 Calcium 8.8 Urine 05/29/17 Range/Units 01:15 Urine Color Dark Yellow (Yellow) Urine Clarity Cloudy A (Clear) Urine pH 6.0 (5.0-8.0) pH Units Ur Specific [place] 1.028 H (1.010-1.025) Urine Protein 100 H (Neg-Trace) mg/dL Urine Glucose (UA) Normal (Normal) mg/dL - ABG Interpretation ABG results: ABG ABG pH 7.36 pH Units (7.32-7.45) 05/21/17 04:11 ABG pCO2 49 mmHg (35-45) H 05/21/17 04:11 ABG pO2 73 mmHg (85-104) L 05/21/17 04:11 ABG O2 Saturation 94 % (95-98) L 05/21/17 04:11 - Attending Attestation Acute hypoxic respiratory failure secondary to community-acquired pneumonia, unknown agent Continue steroid taper also for aortitis, may discontinue Bactrim after seeing Dr. Bermudez I examined this patient and my medical decision-making was reviewed with the Resident Physician. I agree with the documented findings, disposition and treatment plan as described except to the extent set forth below.
[2017-05-29] MEDS ORDERED: predniSONE 20 MG TABLET PO SCH (09:00)
[2017-05-29] MEDS ORDERED: Magic Mouthwash 10 ML UD Cup PO PRN (10:26)
[2017-05-29] MEDS: Nystatin SUSP 5 ML UD.LIQ PO SCH ×2 (10:57→13:10)
[2017-05-29 10:58] VITALS: BP 112/70
--- NOTE | 2017-05-29 11:49 | Discharge Summary ---
<Cyril Pack - Last Filed: 05/29/17 12:54> Orders not resulted at time of discharge: Pending orders 05/19/17 13:43 AFB Culture, Respiratory [TB] Routine AFB Smear [TB] Routine Fungal Culture [MYC] Routine 05/19/17 13:44 AFB Culture, Respiratory [TB] Routine AFB Smear [TB] Routine Fungal Culture [MYC] Routine Date of Encounter: 05/29/17 Time of Encounter: 11:49 - Discharge Diagnosis (1) Acute respiratory failure Priority: Primary Status: Acute Comments: Acute respiratory failure- Patient's oxygen saturation currently 90% on Room Air. Patient on bactrim for prophylaxis of PCP. Will discharge patient home on bactrim once daily until patient sees Dr. Smith. Recommend repeat chest x- ray to check for resolution of pneumonia. Pneumonia- chest x-ray is stable. Aortitis- continue oral prednisone. Will prescribe 40 mg for the next 4 days, then 30 mg for 4 days, 20 mg for 4 days, 10 mg for 4 days. Oral Thrush- Nystatin oral suspension for 10 days, magic mouthwash for five days Qualifiers: Respiratory failure complication: hypoxia Qualified Code(s): J96.01 - Acute respiratory failure with hypoxia (2) Pneumonia Priority: Primary Status: Acute Qualifiers: Pneumonia type: due to unspecified organism Laterality: bilateral Lung location: unspecified part of lung Qualified Code(s): J18.9 - Pneumonia, unspecified organism (3) Aortitis Priority: Secondary Status: Chronic (4) Thrush, oral Priority: Primary Status: Acute Hospital course: Ms. Miranda is a 76 year old female who was admitted to the hospital secondary to acute respiratory failure and right lower lobe and left lower lobe pneumonia. Respiratory cultures were negative for growth of bacteria. Acid Fast cultures currently pending. She was intubated on 05/16 and placed in the ICU. Patient was on zosyn and bactrim as antimicrobials during her course. Patient extubated on 05/21 and was on 3 liters of oxygen via nasal cannula. Patient subsequently was weaned off the oxygen and her O2 saturation has been 90% on room air since. Patient with aortitis that was diagnosed in March and on prednisone. We are beginning a steroid taper of oral prednisone. Will recommend that she continue taking bactrim daily until cleared by her physician outpatient as there was concern for need for PCP prophylaxis.. Patient also has developed oral thrush in the hospital. Will prescribe nystatin oral suspension for the next 10 days. Also will be providing prescription for magic mouthwash to help with her symptoms. Recommend obtaining repeat chest x-ray to check for resolution and review of the acid fast stains as they are still pending. Patient is supposed to go to [facility] for rehabilitation. Discharge discussed with: patient - Time Spent with Patient Total time spent providing and/or coordinating discharge services: - Discharge Medications Prescriptions: Lactobacillus [Culturelle] 1 each PO DAILY #30 cap.sprink Magic Mouthwash 5 ml PO TID PRN #1 bottle PRN Reason: Pain Nystatin [Nystatin Suspension] 5 ml PO QID #120 ml predniSONE [PredniSONE] 40 mg PO TAPER #20 tablet Sulfamethoxazole/Trimeth DS [Bactrim DS] 1 each PO DAILY #30 tablet Home Medications: ALPRAZolam [Xanax 1 MG Tablet] 1 mg PO HS 09/03/15 [History] Acetaminophen [Tylenol] 325 mg PO Q6HR PRN 05/16/17 [History] Aspirin Enteric Coated [Aspirin EC] 325 mg PO DAILY 05/16/17 [History] Atorvastatin [Lipitor] 40 mg PO HS 05/16/17 [History] Bimatoprost [Lumigan] 1 drop OP QPM 05/16/17 [History] Ergocalciferol (VITAMIN D2) [Vitamin D2] 50,000 unit PO QWEEK 05/16/17 [History] Atorvastatin [Lipitor] 40 mg PO HS tablet 05/29/17 [Rx] Lactobacillus [Culturelle] 1 each PO DAILY #30 cap.sprink 05/29/17 [Rx] Latanoprost [Xalatan] 1 drop BOTH EYES HS bottle 05/29/17 [Rx] Magic Mouthwash 5 ml PO TID PRN #1 bottle 05/29/17 [Rx] Nystatin [Nystatin Suspension] 5 ml PO QID #120 ml 05/29/17 [Rx] Sulfamethoxazole/Trimeth DS [Bactrim DS] 1 each PO DAILY #30 tablet 05/29/17 [Rx ] predniSONE [PredniSONE] 40 mg PO TAPER #20 tablet 05/29/17 [Rx] Allergies/Adverse Reactions: 3 Allergy/AdvReac Type Severity Reaction Status Date / Time No Known Allergies Allergy Verified 05/12/17 07:32 Date of admission: 05/17/17 05:36 Primary care physician: Anabel Rasmussen CNP Consults: 05/17/17 10:00 Consult to Pulmonology [CONS] Routine Consulting Provider: Pulm Crit Care & Sleep Amber Reason for Consult: Hypoxia/diffuse lung changes Call Completed: Yes 05/18/17 13:36 Consult to PICC team [Consult to Invasive Line Access Team] [CONS] Routine Reason for Consult: Limited vascular access Line Type: Midline 05/18/17 15:20 Consult to Invasive Line Access Team [CONS] Routine Reason for Consult: limited vascular access Line Type: EPIV 05/20/17 09:17 Consult to Nutrition [CONS] Routine Comment: Patient intubated. initiating tube feeds. Consulting Provider: NUTRITION Reason for Dietary Consult: Tube Feed Start & Manage 05/22/17 08:03 Consult to Physical Therapy [CONS] Routine Comment: Evaluate, develop and implement POC Reason for Consult: admitted to icu 05/16 CAP needing vent; extubated 3/4; improving encouraging more physical activity 05/22/17 08:04 Consult to Occupational Therapy [CONS] Routine Comment: Evaluate, develop and implement POC Reason for Consult: admitted to icu 05/16 CAP needing vent; extubated 3/4; improving encouraging more physical activity Discharging clinician: Jose Aguilera Anticipated date of discharge: 05/29/17 - Constitutional Vitals: Temp Pulse Resp BP Pulse Ox 97.9 F 75 16 112/70 93 05/29/17 10:54 05/29/17 10:54 05/29/17 11:04 05/29/17 11:04 05/29/17 11:04 General appearance: Present: A&O X 3, pleasant, no acute distress, answers questions appropriately - ENT Additional comments: ulcers on tongue and roof of mouth, white plaque attached to the oral mucosa. - Neck Neck exam general surgery: Present: full ROM, supple, trachea midline - Respiratory Respiratory exam: Present: CTAB. Absent: accessory muscle use - GI/Abdominal GI/Abdominal exam: Present: soft. Absent: distended, firm, guarding - Neurological Exam Neurological exam: Present: alert. Absent: altered - Patient Status Disposition: Transfer Other Condition: Good Overall status at discharge: patient is progressing back to baseline - Discharge Instructions Instructions: Pneumonia (DC) Follow Up With: Anabel Rasmussen CNP [Primary Care Provider] - (patient is going to [facility] no PCP appointment needed) Forms: ED Satisfaction Letter Additional Instructions: We will be going to [facility] upon discharge - Diet and Activity Activity: as per physical therapy Diet: advance to your usual diet <RaymonKarishmaFrantzlaneJose garcia - Last Filed: 05/29/17 15:37> Orders not resulted at time of discharge: Pending orders 05/19/17 13:43 AFB Culture, Respiratory [TB] Routine AFB Smear [TB] Routine Fungal Culture [MYC] Routine 05/19/17 13:44 AFB Culture, Respiratory [TB] Routine AFB Smear [TB] Routine Fungal Culture [MYC] Routine Date of Encounter: 05/29/17 Hospital course: Ms. Miranda is a 76 year old female - Time Spent with Patient Total time spent providing and/or coordinating discharge services: Date of admission: 05/17/17 05:36 Primary care physician: Anabel Rasmussen CNP Consults: 05/17/17 10:00 Consult to Pulmonology [CONS] Routine Consulting Provider: Pulm Crit Care & Sleep Amber Reason for Consult: Hypoxia/diffuse lung changes Call Completed: Yes 05/18/17 13:36 Consult to PICC team [Consult to Invasive Line Access Team] [CONS] Routine Reason for Consult: Limited vascular access Line Type: Midline 05/18/17 15:20 Consult to Invasive Line Access Team [CONS] Routine Reason for Consult: limited vascular access Line Type: EPIV 05/20/17 09:17 Consult to Nutrition [CONS] Routine Comment: Patient intubated. initiating tube feeds. Consulting Provider: NUTRITION Reason for Dietary Consult: Tube Feed Start & Manage 05/22/17 08:03 Consult to Physical Therapy [CONS] Routine Comment: Evaluate, develop and implement POC Reason for Consult: admitted to icu 05/16 CAP needing vent; extubated 3/4; improving encouraging more physical activity 05/22/17 08:04 Consult to Occupational Therapy [CONS] Routine Comment: Evaluate, develop and implement POC Reason for Consult: admitted to icu 05/16 CAP needing vent; extubated 3/4; improving encouraging more physical activity - Constitutional Vitals: Temp Pulse Resp BP Pulse Ox 97.9 F 75 16 112/70 93 03/12/18 10:54 05/29/17 10:54 05/29/17 11:04 05/29/17 11:04 05/29/17 11:04 - Attending Attestation Acute hypoxic respiratory failure secondary to community-acquired pneumonia, unknown agent Continue steroid taper also for aortitis, may discontinue Bactrim after seeing Dr. Bermudez Time spent on this discharge 40 minutes I examined this patient and my medical decision-making was reviewed with the Resident Physician. I agree with the documented findings, disposition and treatment plan as described except to the extent set forth below.
--- NOTE | 2017-05-29 13:36 | Physician Discharge Referral ---
ExtendedCare Referral Info Transfer To: [facility] Provider in Charge after Transfer: PCP Institutional Level of Care: Skilled - Diagnosis (1) Acute respiratory failure Priority: Primary Status: Acute (2) Pneumonia Priority: Primary Status: Acute (3) Aortitis Priority: Secondary Status: Chronic (4) Thrush, oral Priority: Primary Status: Acute - Transfer Medications Prescriptions: Lactobacillus [Culturelle] 1 each PO DAILY #30 cap.sprink Magic Mouthwash 5 ml PO TID PRN #1 bottle PRN Reason: Pain Nystatin [Nystatin Suspension] 5 ml PO QID #120 ml predniSONE [PredniSONE] 40 mg PO TAPER #20 tablet Sulfamethoxazole/Trimeth DS [Bactrim DS] 1 each PO DAILY #30 tablet Home Medications: ALPRAZolam [Xanax 1 MG Tablet] 1 mg PO HS 09/03/15 [History] Acetaminophen [Tylenol] 325 mg PO Q6HR PRN 05/16/17 [History] Aspirin Enteric Coated [Aspirin EC] 325 mg PO DAILY 05/16/17 [History] Atorvastatin [Lipitor] 40 mg PO HS 05/16/17 [History] Bimatoprost [Lumigan] 1 drop OP QPM 05/16/17 [History] Ergocalciferol (VITAMIN D2) [Vitamin D2] 50,000 unit PO QWEEK 05/16/17 [History] Atorvastatin [Lipitor] 40 mg PO HS tablet 05/29/17 [Rx] Lactobacillus [Culturelle] 1 each PO DAILY #30 cap.sprink 05/29/17 [Rx] Latanoprost [Xalatan] 1 drop BOTH EYES HS bottle 05/29/17 [Rx] Magic Mouthwash 5 ml PO TID PRN #1 bottle 05/29/17 [Rx] Nystatin [Nystatin Suspension] 5 ml PO QID #120 ml 05/29/17 [Rx] Sulfamethoxazole/Trimeth DS [Bactrim DS] 1 each PO DAILY #30 tablet 05/29/17 [Rx ] predniSONE [PredniSONE] 40 mg PO TAPER #20 tablet 05/29/17 [Rx] Allergies/Adverse Reactions: 3 Allergy/AdvReac Type Severity Reaction Status Date / Time No Known Allergies Allergy Verified 05/12/17 07:32 - Respiratory Orders Smoking Cessation: Smoking cessation has been advised. For more information, call the [employer] Tobacco Quit Line at 4-639-ZPQZ-NOW. - Advance Directives Code Status: DNR-Arrest/Don't Intubate - Mobility Orders Other (per physical therapy) - Rehabiliation Orders Rehab Potential: Fair Rehab Orders: Evaluation for Physical Therapy, Evaluation for Occupational Therapy - Diet Orders Regular CERTIFICATION: I certify that the transfer of the above named patient to an Extended Care Facility is necessary for the continuing treatment of the diagnosis listed. The above information is true and accurate reflection of patient's current condition. Confidential - Redisclosure prohibited without a patient's written consent.
[2017-05-29] MEDS ORDERED: 0.9 % Sodium Chloride 500 ML IVC ONE (13:38)
[2017-05-29 14:26] LABS: Creatine Kinase 24 Units/L (30-223)
[2017-05-29] MEDS ORDERED: Stomatitis Mixture 5 ML UDC PO PRN (14:56)
== END 2017-05-29 18:45 | disposition other institution (70) | DRG 166 ==
LOC: ICNU 15:47 → EMEROO 15:47 → ICNU 21:19 → 2NNU 05-26 02:26
PROVIDERS: ADMIT Internal Medicine; ATTEND Internal Medicine

== ENCOUNTER 2017-06-14 14:28 | Inpatient (IN) ==
[2017-06-14 15:56] LABS: Basophils # 0.1 K/mcL (0.0-0.2); Basophils % 0.8 %; Eosinophils # 0.2 K/mcL (0.0-0.6); Eosinophils % 2.4 %; Hematocrit 35.6 % (35.3-44.9); Hemoglobin 11.8 g/dL (11.5-15.4); Immature Granulocytes % 1.1 % (0-4); Lymphocytes % 15.6 %; Mean Corpuscular HGB Conc 33.1 g/dL (31.6-35.5); Mean Corpuscular Volume 96.5 fL (83.0-100.0); Mean Platelet Volume 9.4 fL (9.4-12.4); Monocytes # 0.7 K/mcL (0.0-1.3); Monocytes % 11.1 %; Neutrophils # 4.3 K/mcL (1.6-8.9); Platelet Count 200 K/mcL (140-400); Red Blood Count 3.69 M/mcL (3.82-4.97); Red Cell Distribution Width 15.3 % (11.5-14.5)
[2017-06-14 16:17] LABS: BUN/Creatinine Ratio 16 (6-26); Blood Urea Nitrogen 9 mg/dL (8-23); Calcium 8.4 mg/dL (8.6-10.3); Carbon Dioxide 23 mEq/L (23-29); Chloride 104 mEq/L (98-107); Glucose 88 mg/dL (70-105); Osmolality,Calculated 282 (280-300); Potassium 3.5 mEq/L (3.5-5.1); Sodium 137 mEq/L (136-145); eGFR For African Americans > 60 (> 60); eGFR For Non-African Americans > 60 (> 60)
--- NOTE | 2017-06-14 17:04 | Emergency Department Note ---
START Narrative - START START: I examined this patient and my medical decision-making was reviewed with the Resident Physician. I agree with the documented findings, disposition and treatment plan as described except to the extent set forth below. 76 yo F here for hematuria. dx'd with left LE DVT Patient had been in the ICU for a few weeks intubated with pneumonia. She subsequently developed a left lower extremity DVT. She had been in a halfway and then came back again a few days ago with left lower extremity swelling. An ultrasound was done of the left lower extremity that revealed DVT. She was started on Xarelto and now has subsequently developed hematuria within 2 days. We consulted with vascular surgery, Dr. Senior as well as Dr. Paz with urology. Urology felt the patient needed to have the Xarelto stopped from their standpoint and she is would hold this for the next 3-4 days or more until her urine cleared up. Vascular surgery said that they can be consulted for a Roger filter potentially. Will consult with Hem/Onc in this case she has no cp or sob. no hx of dvt or PE. will consult hematology now. critical care time of 35 min spent in consultation with vasc surgery, urology, hem/onc. disposition pending
[2017-06-14 17:07] LABS: Bilirubin,Urine Negative (Negative); Blood,Urine Large (Negative); Glucose,Urine (UA) Normal (Normal); Ketones,Urine Trace mg/dL (Negative); Leukocyte Esterase,Urine Trace (Negative); Nitrite,Urine Negative (Negative); PH,Urine 6.5 pH Units (5.0-8.0); Protein,Urine >=1000 mg/dL (Neg-Trace); Specific Gravity,Urine 1.024 (1.010-1.025); Urobilinogen,Urine Normal (Normal)
[2017-06-14 17:08] LABS: Clarity,Urine Turbid (Clear); Color,Urine Red (Yellow)
[2017-06-14] MEDS ORDERED: *HR* FentaNYL (PF) 100 MCG/2 ML VIAL IVP ONE (17:19)
--- NOTE | 2017-06-14 17:25 | Emergency Department Note ---
Disposition Clinical Impression: DVT (deep venous thrombosis) Qualifiers: DVT location: lower extremity Affected thrombotic vein of extremity: unspecified vein of extremity Chronicity: acute Laterality: left Qualified Code( s): I82.402 - Acute embolism and thrombosis of unspecified deep veins of left lower extremity Hematuria Qualifiers: Hematuria type: gross Qualified Code(s): R31.0 - Gross hematuria Disposition: Admitted As Inpatient Condition: Fair Time of Disposition: 19:10 General Adult HPI - General Chief complaint: ED General Medical Stated complaint: "blood in urine" Time Seen by Provider: 06/14/17 14:54 Source: patient, family Limitations: no limitations Nursing Notes Reviewed: Yes Vital Signs Reviewed: Yes - History of Present Illness HPI Narrative: Patient is a 76-year-old female who presents to [facility] ED with a chief complaint of hematuria. Patient was admitted approximately one month ago for acute respiratory failure and spent 2 weeks in the ICU. She then came back a few days ago because her left lower extremity was swollen. She was diagnosed with a DVT. She was started on Xarelto. She then started having pamela hematuria today. Denies any nausea, vomiting, fever or chills. No chest pain, difficulty breathing, abdominal pain, problems with urination or bowel movements prior to this. Onset (ago): hour(s) Radiation: non-radiation Pain Severity: moderate Pain Scale: 4 Consistency: constant Improves with: nothing Worsens with: nothing Associated symptoms: Denies: chest pain, cough, fever/chills, headaches, nausea/ vomiting, rash, shortness of breath Treatments Prior to Arrival: none - Related Data Home Medications Medication Instructions Recorded Confirmed Bimatoprost [Lumigan] 1 drop OP QPM 05/16/17 05/16/17 Previous Rx's Medication Instructions Recorded ALPRAZolam [Xanax 1 MG Tablet] 1 mg PO HS 30 Days #30 tablet 05/29/17 Atorvastatin [Lipitor] 40 mg PO HS tablet 05/29/17 Rivaroxaban [Xarelto] 15 mg PO BID #42 tablet 06/12/17 Allergies Allergy/AdvReac Type Severity Reaction Status Date / Time No Known Allergies Allergy Verified 06/12/17 17:01 All systems ED: reviewed and negative except as stated. Past Medical History - Past Medical History Attestation: Yes The following information was validated with the patient. Source: patient Medical history: Reports: cancer, DVT, hyperlipidemia Surgical history: Reports: hysterectomy, other (mastectomy) Psychiatric history: Reports: anxiety - Social History Smoking Status: Former smoker Smokeless Tobacco Status: No Alcohol use: Reports: none Drug use: Reports: none Physical Exam - General Limitations: no limitations General appearance: alert - Head Head exam: atraumatic, normocephalic, normal inspection - Eye Eye exam: Present: normal appearance, EOMI - ENT ENT exam: normal exam, normal oropharynx, mucous membranes moist - Neck Neck exam: Present: normal inspection, full ROM, trachea midline - Chest Chest inspection: Present: normal inspection, symmetric chest wall rise - Respiratory Respiratory exam: Present: normal lung sounds bilaterally - Cardiovascular Cardiovascular exam: Present: regular rate, normal rhythm, normal heart sounds - Abdominal Exam Abdominal exam: Present: soft, tenderness. Absent: distention, guarding, rebound, rigidity Abdominal tenderness: Present: suprapubic, moderate - Female Heel Edge Inker Machine present during exam: No External Exam: Present: bleeding (from urethra) Speculum Exam: Present: normal speculum exam - Extremities Exam Extremities exam: Present: normal inspection, full ROM. Absent: tenderness, pedal edema - Back Exam Back exam: Present: normal inspection, full ROM. Absent: tenderness - Neurological Exam Neurological exam: Present: alert, oriented X3 - Psychiatric Psychiatric exam: Present: normal affect, normal mood - Skin Skin exam: Present: warm, dry, intact, normal color Course Course Narrative: Patient seen and examined. Patient with hematuria on the roll toe. We discussed with vascular surgery Dr. Ho who states he can be consulted for [place] filter placement. We also spoke with urology in regards to be hematuria who states patient likely needs to be off her blood thinning medication for approximately 3 days and then have a cystoscopy and tumor markers sent. Since we are hesitant to stop xarelto since patient has an extensive DVT, we will go ahead and discuss with the hematology to see if they have any recommendations. I discussed with Dr. Campbell who states we could decrease her Xarelto from 15 mg twice daily down to 15 mg once a day. States this is still a high enough dose to treat the blood clots but still sometimes allow improvement of the bleeding. We did discuss again with the urologist who is okay with this plan. He requested to have a 24[place] Lucero catheter at bedside in case he has to come in and replace the Lucero catheter with a larger one. We have called central supply to have this brought over. We will admit to hospitalist service for further workup and evaluation. Recent LLE venous duplex US showed " left superficial femoral demonstrates an incompressible vein. Flow was absent and it did not augment. The left popliteal demonstrates an incompressible vein. Flow was absent and it did not augment. The left posterior tibial demonstrates an incompressible vein. Flow was absent and it did not augment. The left gastrocnemius demonstrates an incompressible vein." Vital Signs Temperature 97.9 F 06/14/17 14:49 Pulse Rate 101 06/14/17 14:49 Respiratory Rate 18 06/14/17 14:49 Blood Pressure 109/77 06/14/17 14:49 O2 Sat by Pulse Oximetry 93 06/14/17 14:49 Temperature 97.9 F 06/14/17 14:49 Pulse Rate 79 06/14/17 16:58 Respiratory Rate 17 06/14/17 16:58 Blood Pressure 113/73 06/14/17 16:58 O2 Sat by Pulse Oximetry 97 06/14/17 16:58 Oxygen Delivery Oxygen Delivery Room Air Medical Decision Making - Medical Records Medical records reviewed: Yes I reviewed the patient's medical records. - Lab Data Lab results reviewed: Yes I reviewed the patient's lab results. Result diagrams: 06/14/17 15:40 06/14/17 15:40 Lab Results 06/14/17 06/14/17 06/14/17 Range/Units 15:40 15:40 16:35 WBC 6.3 (4.3-11.1) K/mcL RBC 3.69 L (3.82-4.97) M/mcL Hgb 11.8 (11.5-15.4) g/dL Hct 35.6 (35.3-44.9) % MCV 96.5 (83.0-100.0) fL MCH 32.0 (28.0-33.3) pg MCHC 33.1 (31.6-35.5) g/dL RDW 15.3 H (11.5-14.5) % Plt Count 200 (140-400) K/mcL MPV 9.4 (9.4-12.4) fL Immature Gran % 1.1 (0-4) % Seg Neutrophils % 69.0 % Lymphocytes % 15.6 % Monocytes % 11.1 % Eosinophils % 2.4 % Basophils % 0.8 % Neutrophils # 4.3 (1.6-8.9) K/mcL Lymphocytes # 1.0 (0.6-4.6) K/mcL Monocytes # 0.7 (0.0-1.3) K/mcL Eosinophils # 0.2 (0.0-0.6) K/mcL Basophils # 0.1 (0.0-0.2) K/mcL Sodium 137 (136-145) mEq/L Potassium 3.5 (3.5-5.1) mEq/L Chloride 104 (98-107) mEq/L Carbon Dioxide 23 (23-29) mEq/L BUN 9 (8-23) mg/dL Creatinine 0.55 L (0.60-1.20) mg/dL Est GFR ( Amer) > 60 (> 60) Est GFR (Non-Af Amer) > 60 (> 60) BUN/Creatinine Ratio 16 (6-26) Glucose 88 (70-105) mg/dL Calculated Osmolality 282 (280-300) Calcium 8.4 L (8.6-10.3) mg/dL Ur Specimen Adequacy See below A Urine Color Red A (Yellow) Urine Clarity Turbid A (Clear) Urine pH 6.5 (5.0-8.0) pH Units Ur Specific [place] 1.024 (1.010-1.025) Urine Protein >=1000 H (Neg-Trace) mg/dL Urine Glucose (UA) Normal (Normal) mg/dL Urine Ketones Trace H (Negative) mg/dL Urine Blood Large H (Negative) Urine Nitrite Negative (Negative) Urine Bilirubin Negative (Negative) Urine Urobilinogen Normal (Normal) mg/dL Ur Leukocyte Esterase Trace H (Negative) Ur Culture Indicated? YES A (NO) - Radiology Data Radiology results reviewed: Yes I reviewed the patient's radiology results.
[2017-06-14] MEDS ORDERED: cefTRIAXone 2,000 MG in Water for inj. (sterile) 20 ML 20 ML IVP ONE (18:42)
--- NOTE | 2017-06-14 21:06 | Internal Med History&Physical ---
Date of Encounter: 06/14/17 Time of Encounter: 21:00 Assessment and Plan (1) Hematuria Current visit: Yes Status: Acute -Patient with a 2 day history of hematuria with blood clots after starting Xarelto for recently diagnosed lower extremity DVT -Urology was consulted for the ER with recommendations for CBI and other options for management of DVT other than OAC -Appreciate any further recommendations Qualifiers: Hematuria type: gross Qualified Code(s): R31.0 - Gross hematuria (2) Deep vein thrombosis of lower extremity Current visit: No Status: Acute -Patient with recently diagnosed DVT and started on Xarelto a few days ago following an extensive two-week stay in the ICU due to acute respiratory failure -Patient now with hematuria as above. -Hematology/oncology consulted with recommendations to decrease Xarelto dose for now and vascular surgery consulted with considerations for IVC filter Qualifiers: Qualified Code(s): I82.409 - Acute embolism and thrombosis of unspecified deep veins of unspecified lower extremity (3) Anxiety Current visit: No Status: Acute Continue Xanax (4) Hyperlipemia Current visit: No Status: Acute Continue statin Qualifiers: Qualified Code(s): E78.5 - Hyperlipidemia, unspecified Internal Medicine - H&P: HPI Chief complaint: Hematuria Admitted From: Home Plans for Post Hospital Care: Home History of present illness: Patient is a 76-year-old female with past medical history significant for recently diagnosed DVT and started on Xarelto a few days ago following an extensive two-week stay in the ICU due to acute respiratory failure, who presents to the ER on 06/14/17 due to gross hematuria. Patient reports that her symptoms began shortly after being started on Xarelto approximately 2 days ago for newly diagnosed DVT. In addition patient also reports of pelvic pain with urination in addition to blood clots in the urine. In the ER, she was found to be hemodynamically stable with a hemoglobin of 11.8. Urinalysis in the ER did show large blood. Patient will be admitted to medical surgical floor for hematuria. Past Med Surg Social Fam HX - Past Medical History Medical history: cancer, DVT, hyperlipidemia Psychiatric history: anxiety - Past Surgical History Surgical History: hysterectomy, other (mastectomy) - Social History Smoking Status: Former smoker Smokeless Tobacco Status: No Alcohol use: none Drug use: none Internal Medicine - H&P: Meds Bimatoprost [Lumigan] 1 drop BOTH EYES QPM 05/16/17 [History] ALPRAZolam [Xanax 1 MG Tablet] 1 mg PO HS 30 Days #30 tablet 05/29/17 [Rx] Atorvastatin [Lipitor] 40 mg PO HS tablet 05/29/17 [Rx] Rivaroxaban [Xarelto] 15 mg PO BID #42 tablet 06/12/17 [Rx] 3 Allergy/AdvReac Type Severity Reaction Status Date / Time No Known Allergies Allergy Verified 06/12/17 17:01 ROS unobtainable: due to endotracheal tube All Systems PM: A 10-system review of systems was performed and is negative for pertinent findings except as documented above in the HPI. - Constitutional Vitals: Temp Pulse Resp BP Pulse Ox 97.9 F 79 17 114/71 94 06/14/17 19:42 06/14/17 19:42 06/14/17 20:00 06/14/17 20:00 06/14/17 19:42 General appearance: Present: no acute distress - Head Head exam: Present: normocephalic - Eye Eye exam: Present: normal appearance - ENT ENT exam: Present: mucous membranes moist - Respiratory Respiratory exam: Present: CTAB. Absent: accessory muscle use, rales, rhonchi, wheezes - Cardiovascular Cardiovascular exam: Present: RRR, +S1, +S2. Absent: diastolic murmur, gallop, rubs, systolic murmur - GI/Abdominal GI/Abdominal exam: Present: normal bowel sounds, soft, no peritoneal signs. Absent: distended, tenderness - Extremities Exam Extremities exam: Absent: pedal edema - Neurological Exam Neurological exam: Present: oriented X3 - Psychiatric Psychiatric exam: Present: normal mood - Skin Skin exam: Present: normal color Internal Med - H&P Results - Labs CBC & Chem 7: 06/14/17 15:40 06/14/17 15:40
[2017-06-14] MEDS ORDERED: Naloxone 0.4 MG/ML INJ IVP PRN (21:12)
[2017-06-14 22:37] LABS: Hematocrit 31.4 % (35.3-44.9); Hemoglobin 10.6 g/dL (11.5-15.4)
[2017-06-14] MEDS: ALPRAZolam 1 MG TABLET PO SCH (23:23)
[2017-06-15 04:56] LABS: Basophils % 0.4 %; Eosinophils # 0.3 K/mcL (0.0-0.6); Eosinophils % 5.8 %; Hematocrit 30.5 % (35.3-44.9); Immature Granulocytes % 1.2 % (0-4); Lymphocytes # 1.2 K/mcL (0.6-4.6); Lymphocytes % 24.2 %; Mean Corpuscular HGB Conc 32.8 g/dL (31.6-35.5); Mean Corpuscular Hemoglobin 31.6 pg (28.0-33.3); Mean Corpuscular Volume 96.5 fL (83.0-100.0); Mean Platelet Volume 9.6 fL (9.4-12.4); Monocytes # 0.6 K/mcL (0.0-1.3); Neutrophils # 2.8 K/mcL (1.6-8.9); Platelet Count 192 K/mcL (140-400); Red Blood Count 3.16 M/mcL (3.82-4.97); Red Cell Distribution Width 15.4 % (11.5-14.5); Segmented Neutrophils % 56.4 %
[2017-06-15 05:12] LABS: BUN/Creatinine Ratio 17 (6-26); Blood Urea Nitrogen 9 mg/dL (8-23); Calcium 7.7 mg/dL (8.6-10.3); Carbon Dioxide 23 mEq/L (23-29); Chloride 108 mEq/L (98-107); Glucose 77 mg/dL (70-105); Osmolality,Calculated 283 (280-300); Potassium 3.4 mEq/L (3.5-5.1); Sodium 138 mEq/L (136-145); eGFR For African Americans > 60 (> 60); eGFR For Non-African Americans > 60 (> 60)
--- NOTE | 2017-06-15 08:06 | Urology - Consult Note ---
Date of Encounter: 06/15/17 Time of Encounter: 08:04 - Assessment and Plan (1) Clot retention of urine Current Visit: Yes Status: Acute Assessment and plan: gross hematuria was secondary to the Xarelto but still unknown underlying cause. we discussed could be from UTI, cystitis, urolithiasis, malignancy, idiopathic. I strongly recommend holding or decreasing Xarelto to allow continued resolution of the hematuria. continue CBI for now. will continue to irrigate cath as needed. no imaging or cystoscopy needed at this time unless hematuria doesn't slow. follow urine cx. continue ABX. In some cases would need to consider an IVC filter but next few days will help determine if this is necessary. Urology CN:HPI Consult date: 06/15/17 Reason for consult Urology: Gross Hematuria History of present illness: 76 yo female new to the urology practice. DVT in left lower ext. started on Xarelto and developed significant gross hematuria and clot retention. went to ER. pt states no hx of UTIs. possible remote hx of stones. quit smoking 20 years ago. no previous GH Past Med Surg Social Fam HX - Past Medical History Medical history: cancer, DVT, hyperlipidemia Psychiatric history: anxiety - Past Surgical History Surgical History: hysterectomy, other - Social History Smoking Status: Former smoker Smokeless Tobacco Status: No Alcohol use: none Drug use: none Medications and Allergies Bimatoprost [Lumigan] 1 drop BOTH EYES QPM 05/16/17 [History] ALPRAZolam [Xanax 1 MG Tablet] 1 mg PO HS 30 Days #30 tablet 05/29/17 [Rx] Atorvastatin [Lipitor] 40 mg PO HS tablet 05/29/17 [Rx] Rivaroxaban [Xarelto] 15 mg PO BID #42 tablet 06/12/17 [Rx] 3 Allergy/AdvReac Type Severity Reaction Status Date / Time No Known Allergies Allergy Verified 06/12/17 17:01 Review of Systems - Constitutional fatigue, no chills, no fever(s) - EENT Nose, mouth and throat: no dizziness - Cardiovascular no chest pain - Respiratory no cough - Gastrointestinal abdominal pain, nausea - Genitourinary Genitourinary: difficulty voiding, hematuria - Musculoskeletal back pain - Integumentary no erythema - Neurological no confusion - Psychiatric no anxiety - Hematologic/Lymphatic easy bleeding - Allergic/Immunologic no throat swelling Exam Initial Vital Signs Temp Pulse Resp BP Pulse Ox 97.9 F 101 18 109/77 93 06/14/17 14:49 06/14/17 14:49 06/14/17 14:49 06/14/17 14:49 06/14/17 14:49 - General physical appearance Present: well developed, no distress - Eyes Present: PERRL - ENT Present: normal nares - Neck Present: no masses - Respiratory Present: normal respiratory effort - Cardiovascular Cardiovascular exam IM: RRR - Abdomen Abdomen: Present: soft, suprapubic tenderness - Integumentary Present: no rash - Neurologic Present: normal coordination. Absent: disoriented, confused - Additional Findings [address] with slow CBI and light hematuria irrigated 30-40 cc black clot from cath. Urology Results - Labs 06/15/17 03:51 06/15/17 03:51 Abnormal lab results RBC 3.16 M/mcL (3.82-4.97) L 06/15/17 03:51 Hgb 10.0 g/dL (11.5-15.4) L 06/15/17 03:51 Hct 30.5 % (35.3-44.9) L 06/15/17 03:51 RDW 15.4 % (11.5-14.5) H 06/15/17 03:51 Potassium 3.4 mEq/L (3.5-5.1) L 06/15/17 03:51 Chloride 108 mEq/L (98-107) H 06/15/17 03:51 Creatinine 0.53 mg/dL (0.60-1.20) L 06/15/17 03:51 Calcium 7.7 mg/dL (8.6-10.3) L 06/15/17 03:51 Ur Specimen Adequacy See below A 06/14/17 16:35 Urine Color Red (Yellow) A 06/14/17 16:35 Urine Clarity Turbid (Clear) A 06/14/17 16:35 Urine Protein >=1000 mg/dL (Neg-Trace) H 06/14/17 16:35 Urine Ketones Trace mg/dL (Negative) H 06/14/17 16:35 Urine Blood Large (Negative) H 06/14/17 16:35 Ur Leukocyte Esterase Trace (Negative) H 06/14/17 16:35 Ur Culture Indicated? YES (NO) A 06/14/17 16:35 Diabetes panel 06/15/17 Range/Units 03:51 Sodium 138 (136-145) mEq/L Potassium 3.4 L (3.5-5.1) mEq/L Chloride 108 H (98-107) mEq/L Carbon Dioxide 23 (23-29) mEq/L BUN 9 (8-23) mg/dL Creatinine 0.53 L (0.60-1.20) mg/dL Glucose 77 (70-105) mg/dL Calcium 7.7 L (8.6-10.3) mg/dL Calcium panel 06/15/17 Range/Units 03:51 Calcium 7.7 L (8.6-10.3) mg/dL Pituitary panel 06/15/17 Range/Units 03:51 Sodium 138 (136-145) mEq/L Potassium 3.4 L (3.5-5.1) mEq/L Chloride 108 H (98-107) mEq/L Carbon Dioxide 23 (23-29) mEq/L BUN 9 (8-23) mg/dL Creatinine 0.53 L (0.60-1.20) mg/dL Glucose 77 (70-105) mg/dL Calcium 7.7 L (8.6-10.3) mg/dL Adrenal panel 06/15/17 Range/Units 03:51 Sodium 138 (136-145) mEq/L Potassium 3.4 L (3.5-5.1) mEq/L Chloride 108 H (98-107) mEq/L Carbon Dioxide 23 (23-29) mEq/L BUN 9 (8-23) mg/dL Creatinine 0.53 L (0.60-1.20) mg/dL Glucose 77 (70-105) mg/dL Calcium 7.7 L (8.6-10.3) mg/dL All other labs normal. Consult Discharge Plan - Plan Referrals: Anabel Rasmussen, NIKHIL [Primary Care Provider] -
--- NOTE | 2017-06-15 10:37 | Internal Med Progress Note ---
Date of Encounter: 06/15/17 Time of Encounter: 10:26 - Assessment and plan (1) Hematuria Current Visit: Yes Status: Acute Assessment and plan: Continue CBI. Urology is following. Hemoglobin dropped about 4 g since about mid May. Qualifiers: Hematuria type: gross Qualified Code(s): R31.0 - Gross hematuria (2) DVT (deep venous thrombosis) Current Visit: Yes Status: Acute Assessment and plan: Hold Xarelto for now. Spoke to heme/onc who will be making a decision about whether to stop or decrease the dose. Another option is to place an IVC filter , but I would hate to do that now as I would like to give the patient a chance after bladder irrigation. Spoke to Dr. Mejia earlier today who told he is only available today to do an IVC if needed. Qualifiers: DVT location: lower extremity Affected thrombotic vein of extremity: unspecified vein of extremity Chronicity: acute Laterality: left Qualified Code(s): I82.402 - Acute embolism and thrombosis of unspecified deep veins of left lower extremity (3) Hyperlipemia Current Visit: No Status: Acute Assessment and plan: Continue statin Qualifiers: Hyperlipidemia type: pure hypercholesterolemia Qualified Code(s): E78.00 - Pure hypercholesterolemia, unspecified; E78.0 - Pure hypercholesterolemia (4) DVT prophylaxis Current Visit: No Status: Acute Assessment and plan: Patient was on Xarelto. This is on hold now given hematuria. - Subjective Interval history: She was seen and examined. Patient is on continuous bladder irrigation. Lucero catheter bag with bright blood. Recently started on Xarelto for left lower extremity DVT and only had one dose of it before she started having urinary clots. Patient was recently admitted to the hospital for 2 weeks for which she was treated for aortitis and pneumonia. He required ICU stay. - Constitutional Vitals: Temp Pulse Resp BP Pulse Ox 98.3 F 72 18 95/60 92 06/15/17 07:03 06/15/17 07:03 06/15/17 07:03 06/15/17 07:03 06/15/17 08:00 General appearance: Present: no acute distress Exam: NGEN: NAD CVS: RRR. S1, S2, No m/r/g RESP: CTAB ABD: Soft, NT, ND, +BS EXT: No edema. 2+ DP. No rashes NEURO: Nonfocalnts. Internal Medicine: Result - Labs CBC & Chem 7: 06/15/17 12:21 06/15/17 03:51 Labs: Short CBC 06/14/17 06/15/17 Range/Units 22:12 03:51 WBC 5.0 (4.3-11.1) K/mcL Hgb 10.6 L 10.0 L (11.5-15.4) g/dL Hct 31.4 L 30.5 L (35.3-44.9) % Plt Count 192 (140-400) K/mcL Neutrophils # 2.8 (1.6-8.9) K/mcL BMP 06/15/17 03:51 Sodium 138 Potassium 3.4 L Chloride 108 H Carbon Dioxide 23 BUN 9 Creatinine 0.53 L Glucose 77 Calcium 7.7 L Consult Discharge Plan - Plan Referrals: Anabel Rasmussen PUBLIC RELATIONS DIRECTOR [Primary Care Provider] -
--- NOTE | 2017-06-15 10:42 | Oncology Inp Consult Note ---
<Robert Campbell S - Last Filed: 06/16/17 08:37> Date of Encounter: 06/16/17 - Data of Consult Requesting Physician: Hay Marcos Primary Care Provider: Anabel Rasmussen CNP - Consult Narrative History of present illness: Ms. Miranda is a 76 year old female Medications and Allergies Bimatoprost [Lumigan] 1 drop BOTH EYES QPM 05/16/17 [History] ALPRAZolam [Xanax 1 MG Tablet] 1 mg PO HS 30 Days #30 tablet 05/29/17 [Rx] Atorvastatin [Lipitor] 40 mg PO HS tablet 05/29/17 [Rx] Rivaroxaban [Xarelto] 15 mg PO BID #42 tablet 06/12/17 [Rx] 3 Allergy/AdvReac Type Severity Reaction Status Date / Time No Known Allergies Allergy Verified 06/12/17 17:01 Oncology - Exam - Constitutional Vitals: Temp Pulse Resp BP Pulse Ox 98.8 F 73 18 87/60 98 06/15/17 15:18 06/15/17 15:18 06/15/17 15:18 06/15/17 15:18 06/15/17 15:18 Oncology - Results Labs: Short CBC 06/14/17 06/15/17 06/15/17 Range/Units 22:12 03:51 12:21 WBC 5.0 5.9 (4.3-11.1) K/mcL Hgb 10.6 L 10.0 L 11.4 L (11.5-15.4) g/dL Hct 31.4 L 30.5 L 35.0 L (35.3-44.9) % Plt Count 192 208 (140-400) K/mcL Neutrophils # 2.8 3.6 (1.6-8.9) K/mcL BMP 06/15/17 03:51 Sodium 138 Potassium 3.4 L Chloride 108 H Carbon Dioxide 23 BUN 9 Creatinine 0.53 L Glucose 77 Calcium 7.7 L Consult Discharge Plan - Plan Referrals: Anabel Rasmussen CNP [Primary Care Provider] - - Attending Attestation 1. Acute DVT in the left superficial femoral, poplieal, posterior tibial and left grastroc on 06/12/2017 . This is her first and only episode of DVT. This appears to have been provoked by prolonged immobilization due to previous admission to ICU few days before this Started on Xarelto and 15 mg by mouth twice a day. Shortly after that she presented with gross hematuria. Currently agree with low-dose Xarelto 10 mg by mouth daily If hematuria does not resolve recommend achievable IVC filter placement CT scan on 03/30/2017 with contrast showed increase in mural thrombus in the aorta Also large cyst left kidney 8.9 cm. May repeat CAT scan if necessary to make sure there is no obvious evidence of leading from the kidney or bladder mass 2. Gross hematuria. Urology involved. Underlying malignancy cannot be ruled out PT and PTT normal 3. History of breast cancer. Neoadjuvant TC 4 cycles followed by left mastectomy 2004. She had 2 residual primaries both around 1.9 cm. ER/PA positive HER-2 negative Breast exam today unremarkable no palpable axillary adenopathy 4. Anemia from acute blood loss. Hemoglobin has stabilized now. 10.2 on 06/16 <Dahlia Story - Last Filed: 06/16/17 09:37> Date of Encounter: 06/15/17 Time of Encounter: 10:42 Assessment and Plan (1) Hematuria Status: Acute Assessment and plan: Etiology unclear at this time, underlying malignancy cannot be ruled out. Urology consultation reviewed. CBI initiated this am, holding off on imaging or cystoscopy unless hematuria does not improve. Urine cx pending, recommendation to continue ATB. Hgb stable at this time, improving, 11.4 around noon today. Continue to monitor CBC closely. Qualifiers: Hematuria type: gross Qualified Code(s): R31.0 - Gross hematuria (2) DVT (deep venous thrombosis) Status: Acute Assessment and plan: Acute DVT in the left superficial femoral, popliteal, posterior tibial and left grastroc on 06/12/2017-likely provoked secondary to recent illness and decreased mobility following extensive hospital stay. She has received 4 doses of Xarelto 15 mg-last dose was 06/14/17 am. She denies chest pain, SOB, no hypoxia or tachycardia. May continue Xarelto at decreased dose 10 mg once daily at this time this will help to cover her with small dose of anticoagulation, stop if bleeding worsens. Kidney function normal. Discussed case with Dr. Campbell today. At this time, recommendation made to hold off on IVC filter to continue to monitor patients response to CBI and decreased dose of Xarelto. Will plan to initiate IVC filter if hematuria worsens or does not improve or if patient becomes hemodynamically unstable. Discussed case with hospitalist, vascular surgery will be available tomorrow morning should plan change or patient need IVC filter placed. Discussed the above plan in it's entirety with patient today who agrees with plan. Please see Dr. Campbell's attestation below for additional details. Qualifiers: DVT location: lower extremity Affected thrombotic vein of extremity: unspecified vein of extremity Chronicity: acute Laterality: left Qualified Code(s): I82.402 - Acute embolism and thrombosis of unspecified deep veins of left lower extremity - Data of Consult Patient: new to practice Consult date: 06/15/17 Requesting Physician: Hay Marcos Primary Care Provider: Anabel Rasmussen CNP - Consult Narrative Reason for consult: Hematuria, Acute DVT-started Xarelto History of present illness: Ms. Miranda is a 76 year old female recently diagnosed with acute DVT in the left superficial femoral, poplieal, posterior tibial and left grastroc on 2017 and started on Xarelto, presented to [facility] ER on 06/14/2017 with report of painful urination and gross hematuria. She was recently discharged from [facility] on 05/29/2017 after an extensive 2 week stay in the ICU due to acute respiratory failure. She had taken one dose of Xarelto on the evening of 06/12 and began having hematuria the following morning upon awakening. She had taken a total of 4 doses prior to presenting to the ER on 06/14 with report of worsening hematuria. Urology consultation with Dr. Paz-Discussing hematuria likely excaberated by Xarelto but need to find cause of underlying issues (UTI, cystitis, urolithiasis, malignancy, idiopathic.) CBI has been initiated, no imaging or cystoscopy recommended at this time unless hematuria does not begin to improve, recommendation made to consider IVC over next few days if hematuria does not improve. On 07/27/2004, she had left breast biopsy showing infiltrating adenocarcinoma, moderately differentiated, ER PA positive, HER-2 negative. At that time, she had presented with skin thickening and skin retraction. 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 She had neoadjuvant chemotherapy with Adriamycin and Cytoxan x4, and then Taxotere x4. On 01/24/05, she had left mastectomy. There are two different primary sites with residual cancer, one was 1.9 cm. Also, another with measurement of 1.9 cm. There is a third area of 9 mm, possibly intramammary mercedes metastasis. She also had a total hysterectomy. No evidence of PLASTER WHITTLER malignancy. In January 2005, she started on Arimidex and completed 5 years of endocrine therapy. She did not wish to have radiation of her chest wall. Since that time, there has been no evidence of recurrence. Mammogram 07/28/2016 negative for malignancy category 1. Past Med Surg Social Fam HX - Past Medical History Medical history: cancer, DVT, hyperlipidemia Psychiatric history: anxiety - Past Surgical History Surgical History: hysterectomy, other - Social History Smoking Status: Former smoker Smokeless Tobacco Status: No Alcohol use: none Drug use: none Constitutional: Absent: anorexia, chills, fatigue, fever(s), weakness, weight loss Eyes: Absent: change in vision Nose, mouth and throat: Absent: dysphagia Cardiovascular: Absent: chest pain, irregular heart rhythm, palpitations Respiratory: Absent: cough, dyspnea Gastrointestinal: Absent: abdominal pain, change in bowel habits, nausea, vomiting Genitourinary: Present: as per HPI, hematuria Musculoskeletal: Absent: muscle weakness Integumentary: Absent: wounds Neurological: Absent: focal weakness, frequent falls Hematologic/Lymphatic: Present: as per HPI Oncology - Exam - Constitutional Vitals: Temp Pulse Resp BP Pulse Ox 98.3 F 72 18 95/60 92 06/15/17 07:03 06/15/17 07:03 06/15/17 07:03 06/15/17 07:03 06/15/17 08:00 General appearance: cooperative, no acute distress, no febrile - Head Head exam: Present: atraumatic - ENT ENT exam: Present: mucous membranes moist - Respiratory Respiratory exam: Present: CTAB. 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, bilateral dorsalis pedis pulses 2+ - Neurological Exam Neurological exam: Present: alert, oriented X3, no focal deficits, strengths equal and symetr throughout - Psychiatric Psychiatric exam: Present: normal affect, normal mood - Skin Skin exam: Present: dry, intact, normal color, warm Oncology - Results Labs: Short CBC 06/14/17 06/15/17 Range/Units 22:12 03:51 WBC 5.0 (4.3-11.1) K/mcL Hgb 10.6 L 10.0 L (11.5-15.4) g/dL Hct 31.4 L 30.5 L (35.3-44.9) % Plt Count 192 (140-400) K/mcL Neutrophils # 2.8 (1.6-8.9) K/mcL BMP 06/15/17 03:51 Sodium 138 Potassium 3.4 L Chloride 108 H Carbon Dioxide 23 BUN 9 Creatinine 0.53 L Glucose 77 Calcium 7.7 L
[2017-06-15 12:57] LABS: Basophils % 0.7 %; Eosinophils # 0.3 K/mcL (0.0-0.6); Eosinophils % 4.4 %; Hemoglobin 11.4 g/dL (11.5-15.4); Immature Granulocytes % 0.9 % (0-4); Lymphocytes # 1.3 K/mcL (0.6-4.6); Lymphocytes % 21.6 %; Mean Corpuscular HGB Conc 32.6 g/dL (31.6-35.5); Mean Corpuscular Hemoglobin 31.8 pg (28.0-33.3); Mean Corpuscular Volume 97.8 fL (83.0-100.0); Mean Platelet Volume 9.7 fL (9.4-12.4); Monocytes # 0.7 K/mcL (0.0-1.3); Monocytes % 11.4 %; Neutrophils # 3.6 K/mcL (1.6-8.9); Platelet Count 208 K/mcL (140-400); Red Blood Count 3.58 M/mcL (3.82-4.97); Red Cell Distribution Width 15.6 % (11.5-14.5)
[2017-06-15] MEDS: *HR* Rivaroxaban 10 MG TABLET PO SCH (16:45)
[2017-06-15] MEDS ORDERED: Latanoprost 2.5 ML BOTTLE BOTH EYES SCH (18:00)
[2017-06-15] MEDS ORDERED: ALPRAZolam 1 MG TABLET PO SCH (21:00)
[2017-06-15] MEDS: ALPRAZolam 1 MG TABLET PO SCH (21:03)
[2017-06-16 03:59] LABS: Basophils % 0.8 %; Eosinophils # 0.3 K/mcL (0.0-0.6); Eosinophils % 5.6 %; Hematocrit 31.5 % (35.3-44.9); Hemoglobin 10.2 g/dL (11.5-15.4); Immature Granulocytes % 0.9 % (0-4); Lymphocytes # 1.5 K/mcL (0.6-4.6); Lymphocytes % 28.9 %; Mean Corpuscular HGB Conc 32.4 g/dL (31.6-35.5); Mean Corpuscular Hemoglobin 31.1 pg (28.0-33.3); Mean Platelet Volume 9.3 fL (9.4-12.4); Monocytes # 0.7 K/mcL (0.0-1.3); Monocytes % 13.5 %; Neutrophils # 2.7 K/mcL (1.6-8.9); Platelet Count 218 K/mcL (140-400); Red Blood Count 3.28 M/mcL (3.82-4.97); Red Cell Distribution Width 15.7 % (11.5-14.5); Segmented Neutrophils % 50.3 %
[2017-06-16 04:25] LABS: BUN/Creatinine Ratio 16 (6-26); Blood Urea Nitrogen 7 mg/dL (8-23); Calcium 7.9 mg/dL (8.6-10.3); Carbon Dioxide 21 mEq/L (23-29); Chloride 110 mEq/L (98-107); Glucose 91 mg/dL (70-105); Magnesium 1.8 mg/dL (1.6-2.6); Osmolality,Calculated 284 (280-300); Potassium 3.9 mEq/L (3.5-5.1); Sodium 138 mEq/L (136-145); eGFR For African Americans > 60 (> 60); eGFR For Non-African Americans > 60 (> 60)
--- NOTE | 2017-06-16 07:51 | Urology Progress Note ---
Date of Encounter: 06/16/17 Time of Encounter: 07:51 - Assessment and Plan (1) Clot retention of urine Current Visit: Yes Status: Resolved Assessment and plan: hematuria is resolving 24 hours after holding xarelto. reviewing notes there is not a consensus how to proceed with anticoagulation or filter. If xarelto needs to be restarted I recommend a lower dose if possible. pt has high potential to rebleed. Although originally I had not planned to do a CT scan, I feel it is recommended as it may help make the decision for her anticoaguation especially if a tumor or concerning pathology is found. Progress Note Subjective: feels better Narrative: hematuria is slowing. Objective Initial Vital Signs Temp Pulse Resp BP Pulse Ox 97.9 F 101 18 109/77 93 06/14/17 14:49 06/14/17 14:49 06/14/17 14:49 06/14/17 14:49 06/14/17 14:49 - General physical appearance Present: no distress - Additional Exam I turned the CBI off and returned after 15 min. The urine remained a very light transparent hematuria. - Labs 06/16/17 03:38 06/16/17 03:38 Diabetes panel 06/16/17 Range/Units 03:38 Sodium 138 (136-145) mEq/L Potassium 3.9 (3.5-5.1) mEq/L Chloride 110 H (98-107) mEq/L Carbon Dioxide 21 L (23-29) mEq/L BUN 7 L (8-23) mg/dL Creatinine 0.45 L (0.60-1.20) mg/dL Glucose 91 (70-105) mg/dL Calcium 7.9 L (8.6-10.3) mg/dL Calcium panel 06/16/17 Range/Units 03:38 Calcium 7.9 L (8.6-10.3) mg/dL Pituitary panel 06/16/17 Range/Units 03:38 Sodium 138 (136-145) mEq/L Potassium 3.9 (3.5-5.1) mEq/L Chloride 110 H (98-107) mEq/L Carbon Dioxide 21 L (23-29) mEq/L BUN 7 L (8-23) mg/dL Creatinine 0.45 L (0.60-1.20) mg/dL Glucose 91 (70-105) mg/dL Calcium 7.9 L (8.6-10.3) mg/dL Adrenal panel 06/16/17 Range/Units 03:38 Sodium 138 (136-145) mEq/L Potassium 3.9 (3.5-5.1) mEq/L Chloride 110 H (98-107) mEq/L Carbon Dioxide 21 L (23-29) mEq/L BUN 7 L (8-23) mg/dL Creatinine 0.45 L (0.60-1.20) mg/dL Glucose 91 (70-105) mg/dL Calcium 7.9 L (8.6-10.3) mg/dL Consult Discharge Plan - Plan Referrals: Anabel Rasmussen, NIKHIL [Primary Care Provider] -
--- NOTE | 2017-06-16 08:38 | Internal Med Progress Note ---
Date of Encounter: 06/16/17 Time of Encounter: 08:33 - Assessment and plan (1) Hematuria Current Visit: Yes Status: Acute Assessment and plan: Continue CBI. Urology is following. CT abd/pelvis ordered. Hemoglobin dropped about 4 g since about mid May. hgb downto 10.2 today and was 11.[address] aPz who believes the hematuria is clearing but wants to see results of CT abd/pelvis in order to help us out on whether we put her back on anticoags or not. Qualifiers: Hematuria type: gross Qualified Code(s): R31.0 - Gross hematuria (2) DVT (deep venous thrombosis) Current Visit: Yes Status: Acute Assessment and plan: Hold Xarelto for now. Spoke to heme/onc who are recommending a reduced xarelto dose if CT is ok. Awaiting results of CT and restart xarelto at 10 mg. Watch for hematuria. If hematuria recures, then we will have to place an IVC filter. Qualifiers: DVT location: lower extremity Affected thrombotic vein of extremity: unspecified vein of extremity Chronicity: acute Laterality: left Qualified Code(s): I82.402 - Acute embolism and thrombosis of unspecified deep veins of left lower extremity (3) Hyperlipemia Current Visit: No Status: Acute Assessment and plan: Continue statin Qualifiers: Hyperlipidemia type: pure hypercholesterolemia Qualified Code(s): E78.00 - Pure hypercholesterolemia, unspecified; E78.0 - Pure hypercholesterolemia (4) DVT prophylaxis Current Visit: No Status: Acute Assessment and plan: Patient was on Xarelto. This is on hold now given hematuria. - Subjective Interval history: She was seen and examined. Patient is on continuous bladder irrigation. Lucero catheter still has bright blood. Recently started on Xarelto for left lower extremity DVT and only had one dose of it before she started having urinary clots. Received about 3-4 doses of it prior to this. Patient was recently admitted to the hospital for 2 weeks for which she was treated for aortitis and pneumonia. Has required ICU stay. - Constitutional Vitals: Temp Pulse Resp BP Pulse Ox 98.7 F 76 16 111/69 92 06/16/17 07:16 06/16/17 07:16 06/16/17 07:16 06/16/17 07:16 06/16/17 07:43 General appearance: Present: no acute distress Exam: NGEN: NAD CVS: RRR. S1, S2, No m/r/g RESP: CTAB ABD: Soft, NT, ND, +BS EXT: No edema. 2+ DP. No rashes NEURO: Nonfocalnts. Internal Medicine: Result - Labs CBC & Chem 7: 06/16/17 03:38 06/16/17 03:38 Labs: Short CBC 06/15/17 06/16/17 Range/Units 12:21 03:38 WBC 5.9 5.3 (4.3-11.1) K/mcL Hgb 11.4 L 10.2 L (11.5-15.4) g/dL Hct 35.0 L 31.5 L (35.3-44.9) % Plt Count 208 218 (140-400) K/mcL Neutrophils # 3.6 2.7 (1.6-8.9) K/mcL BMP 06/16/17 03:38 Sodium 138 Potassium 3.9 Chloride 110 H Carbon Dioxide 21 L BUN 7 L Creatinine 0.45 L Glucose 91 Calcium 7.9 L - ABG Interpretation ABG results: PT/INR, D-dimer D-Dimer 5842 ng/mLFEU (0-500) H 06/15/17 19:22 Consult Discharge Plan - Plan Referrals: Anabel Rasmussen CNP [Primary Care Provider] -
--- NOTE | 2017-06-16 11:02 | Oncology Inp Progress Note ---
<Angelito Arevalo - Last Filed: 06/17/17 13:18> Date of Encounter: 06/17/17 (1) Deep vein thrombosis of lower extremity Current Visit: No Status: Acute Qualifiers: Qualified Code(s): I82.409 - Acute embolism and thrombosis of unspecified deep veins of unspecified lower extremity - Constitutional Vitals: Vital Signs Temp Pulse Resp BP Pulse Ox 06/17/17 11:00 97.7 F 83 16 103/68 93 06/17/17 09:46 93 06/17/17 08:04 98.2 F 75 16 89/58 93 06/17/17 04:43 98.5 F 72 16 100/66 94 06/16/17 23:57 98.5 F 78 16 94/61 97 06/16/17 19:11 98.7 F 88 16 93/56 92 06/16/17 15:53 100.1 F H 86 18 113/69 91 Intake and Output 06/16/17 06/17/17 06/17/17 23:59 07:59 15:59 Intake Total 360 / 360 180 / 180 440 / 440 Output Total 525 / 525 1200 / 1200 800 / 800 Balance -165 / -165 -1020 / -1020 -360 / -360 Intake: Oral 360 / 360 180 / 180 440 / 440 Output: Urine 525 / 525 300 / 300 Catheter 1200 / 1200 500 / 500 Other: Intake, CBI Fluid 200 2,400 200 Meal Dinner Lunch Percent of Meal Consumed 100% 90% Output, CBI Fluid 750 400 200 Weight 67.7 kg Patient Weight 06/17/17 23:59 Weight 67.7 kg General appearance: average body habitus - Head Head exam: Present: atraumatic, normal inspection - Eye Eye exam: Present: sclera anicteric - ENT ENT exam: Present: mucous membranes moist - Neck Neck exam: Present: full ROM - GI/Abdominal GI/Abdominal exam: Present: soft - Extremities Exam Extremities exam: Present: normal inspection Additional comments: left leg DVT - Neurological Exam Neurological exam: Present: alert, CN II-XII intact, oriented X3 - Psychiatric Psychiatric exam: Present: normal mood - Skin Skin exam: Present: normal color, warm Oncology: Obj Data - Labs CBC & Chem 7: 06/17/17 08:37 06/17/17 08:37 Labs: Laboratory Results - last 24 hr 06/17/17 06/17/17 08:37 08:37 WBC 4.9 RBC 3.73 L Hgb 11.7 D Hct 35.6 MCV 95.4 MCH 31.4 MCHC 32.9 RDW 15.8 H Plt Count 269 MPV 9.4 Immature Gran % 1.4 Seg Neutrophils % 66.5 Lymphocytes % 15.4 Monocytes % 9.8 Eosinophils % 6.1 Basophils % 0.8 Neutrophils # 3.3 Lymphocytes # 0.8 Monocytes # 0.5 Eosinophils # 0.3 Basophils # 0.0 Nucleated RBCs/100 WBC 0.4 H Immature Plt Fraction 2.5 Sodium 135 L Potassium 3.7 Chloride 104 Carbon Dioxide 23 BUN 7 L Creatinine 0.49 L Est GFR ( Amer) > 60 Est GFR (Non-Af Amer) > 60 BUN/Creatinine Ratio 14 Glucose 102 Calculated Osmolality 278 L Calcium 8.1 L - Impressions Impressions Abdomen/Pelvis CT 06/16/17 08:30 IMPRESSION: 1. Lucero catheter in place with large irregular filling defect in the urinary bladder surrounding the Lucero retention bulb, most likely representing blood clot. Detailed assessment and evaluation of enhancement characteristics is limited due to streak artifact from a left hip arthroplasty. Possibility of underlying urinary bladder mass is not entirely excluded. Consider additional evaluation with cystoscopy. 2. No evidence of solid renal mass or obstructive uropathy. There is a large simple left renal cyst and punctate right renal calculus noted. 3. Unchanged subcentimeter hypodensity at the anterior pancreatic body. Unchanged mild pancreatic ductal dilatation, which could be further evaluated with ERCP or MRCP, if clinically indicated. 4. 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 Previously noted periaortic inflammatory changes appear improved. 5. Prominent interstitial thickening and ground-glass attenuation with trace pleural fluid at the lung bases, new from the previous study, suggesting interstitial edema. D/ / 06/16/2017 09:48:05 Ramonita Howell / blue Interpreting Provider: Ramonita Howell - ABG Interpretation ABG results: PT/INR, D-dimer D-Dimer 5842 ng/mLFEU (0-500) H 06/15/17 19:22 Consult Discharge Plan - Plan Referrals: Anabel Rasmussen, ADDICTION MEDICINE PHYSICIAN [Primary Care Provider] - <StoryDahlia - Last Filed: 06/19/17 08:49> Date of Encounter: 06/16/17 Time of Encounter: 11:02 (1) Hematuria Current Visit: Yes Status: Acute Assessment and plan: Etiology unclear at this time, underlying malignancy cannot be ruled out. CBI is continued at this time, urology managing. Hgb stable, continue to monitor. CT abdomen/pelvis discussed below. Possibility of underlying urinary bladder mass is not entirely excluded. Will follow Dr. Paz's recommendation for cystoscopy, timeline TBD pending patients hospital course. Her hematuria seems to be improving after holding Xarelto, transparent pink urine noted in catheter tubing Qualifiers: Hematuria type: gross Qualified Code(s): R31.0 - Gross hematuria (2) DVT (deep venous thrombosis) Current Visit: Yes Status: Acute Assessment and plan: Acute DVT in the left superficial femoral, popliteal, posterior tibial and left grastroc on 06/12/2017-likely provoked secondary to recent illness and decreased mobility following extensive hospital stay. She has received 4 doses of Xarelto 15 mg-last dose was 06/14/17 am. She denies chest pain, SOB, no hypoxia or tachycardia. 06/16/17-Discussed case with Dr. Campbell today, CT abdomen/pelvis reviewed, no finding of acute concerning pathology. No evidence of solid renal mass or obstructive uropathy. No retroperitoneal lymphadenopathy or hematoma. 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 At this time, would recommend trial of low dose Xarelto and 10 mg once daily with continued close monitoring. Hold Xarelto if hematuria worsens or if hgb acutely drops, and in which case place retrievable IVC filter at that time. At this time holding off on IVC filter pending response to Xarelto. If retrievable IVC filter needs to be placed, she will need continued hematology management for future anticoagulation options to treat LLE DVT, once acute issues resolve. Of note- She does have an unchanged subcentimeter hypodensity at the anterior pancreatic body, with unchanged mild pancreatic ductal dilatation-may be further evaluated with ERCP/MRCP- may be further evaluated on outpatient basis Qualifiers: DVT location: lower extremity Affected thrombotic vein of extremity: unspecified vein of extremity Chronicity: acute Laterality: left Qualified Code(s): I82.402 - Acute embolism and thrombosis of unspecified deep veins of left lower extremity Oncology: Subj Interval history: Ms. Miranda is resting in bed. She denies abdominal pain or lower back pain. Lucero cath with sign of improving hematuria, light pink urine in catheter tubing. - Constitutional Vitals: Vital Signs Temp Pulse Resp BP Pulse Ox 06/16/17 11:01 98.6 F 71 14 107/71 95 06/16/17 07:43 92 06/16/17 07:16 98.7 F 76 16 111/69 92 06/16/17 03:04 98.1 F 68 16 101/66 92 06/16/17 00:12 98.1 F 69 17 93/54 92 06/15/17 20:43 98.3 F 78 15 93/66 93 06/15/17 15:18 98.8 F 73 18 87/60 98 06/15/17 11:41 98.0 F 80 17 112/74 90 Intake and Output 06/15/17 06/16/17 06/16/17 23:59 07:59 15:59 Intake Total 240 / 240 0 / 0 0 / 0 Output Total 575 / 575 550 / 550 Balance -335 / -335 -550 / -550 0 / 0 Intake: Oral 240 / 240 0 / 0 0 / 0 Output: Urine 575 / 575 0 / 0 Catheter 550 / 550 Other: Intake, CBI Fluid 300 3,000 Meal Dinner npo Percent of Meal Consumed 40% 0% Output, CBI Fluid 600 800 Weight 66 kg Patient Weight 06/16/17 23:59 Weight 66 kg Oncology: Obj Data - Labs CBC & Chem 7: 06/19/17 05:23 06/19/17 05:23 - Impressions Impressions Abdomen/Pelvis CT 06/16/17 08:30 IMPRESSION: 1. Lucero catheter in place with large irregular filling defect in the urinary bladder surrounding the Lucero retention bulb, most likely representing blood clot. Detailed assessment and evaluation of enhancement characteristics is limited due to streak artifact from a left hip arthroplasty. Possibility of underlying urinary bladder mass is not entirely excluded. Consider additional evaluation with cystoscopy. 2. No evidence of solid renal mass or obstructive uropathy. There is a large simple left renal cyst and punctate right renal calculus noted. 3. Unchanged subcentimeter hypodensity at the anterior pancreatic body. Unchanged mild pancreatic ductal dilatation, which could be further evaluated with ERCP or MRCP, if clinically indicated. 4. 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 Previously noted periaortic inflammatory changes appear improved. 5. Prominent interstitial thickening and ground-glass attenuation with trace pleural fluid at the lung bases, new from the previous study, suggesting interstitial edema. D/ / 06/16/2017 09:48:05 Ramonita Howell / blue Interpreting Provider: Ramonita Howell - ALAINA Interpretation ABG results: PT/INR, D-dimer D-Dimer 5842 ng/mLFEU (0-500) H 06/15/17 19:22
--- NOTE | 2017-06-16 12:02 | Vascular/Endovasc Consult Note ---
Date of Encounter: 06/16/17 Time of Encounter: 11:30 Assessment and Plan (1) DVT (deep venous thrombosis) Current Visit: Yes Status: Acute Patient has left lower extremity femoral and popliteal and tibial vein acute DVT. Symptomatically the patient is improving. Patient had hematuria associated with anticoagulation. At this time a decision has not been made for placement of an IVC filter. I reviewed with the patient and her the indication/use of an IVC filter. I explained this is an optional intervention at this time. If the patient can be successfully managed with the reduction of anticoagulation dosage and control of her urinary symptoms than the filter may not be necessary. Should there be unsatisfactory response to this therapy the filter could be placed and the anticoagulation stopped. Please notify vascular surgeon on-call if this is desired in the future. Qualifiers: DVT location: lower extremity Affected thrombotic vein of extremity: unspecified vein of extremity Chronicity: acute Laterality: left Qualified Code(s): I82.402 - Acute embolism and thrombosis of unspecified deep veins of left lower extremity (2) Clot retention of urine Current Visit: Yes Status: Acute Patient with hematuria following initiation of anticoagulation therapy for left lower extremity DVT. Urology has been consulted. Patient is presently being managed with Lucero catheter and bladder irrigation. - History of Present Illness Consult date: 06/16/17 Consult reason: Left lower extremity DVT with hematuria Chief complaint: Blood and urine History of present illness: Ms. Miranda is a 76 year old female Seen in consultation regarding DVT and hematuria. The patient had a protracted hospitalization recently and had been discharged. She noted on Monday of this week that her left lower extremity was swollen. She went to have a duplex scan after contacting her primary care provider which was positive for a left femoral -popliteal and tibial DVT. She was started on Xarleto. After the first or second dose of Xarleto she began having gross hematuria. This then led to the patient being admitted for further evaluation and for bladder irrigation. Vascular surgery was asked to see the patient for the possibility of an IVC filter placement. Patient states that the left lower extremity swelling is significantly improved over the last 24-48 hours. The patient has been seen in consultation by urology and hematology. A decision has not yet been reached in regards to placement of an IVC filter. Past Med Surg Social Fam HX - Past Medical History Medical history: cancer, DVT, hyperlipidemia Psychiatric history: anxiety - Past Surgical History Surgical History: hysterectomy, other - Social History Smoking Status: Former smoker Smokeless Tobacco Status: No Alcohol use: none Drug use: none Medications and Allergies Bimatoprost [Lumigan] 1 drop BOTH EYES QPM 05/16/17 [History] ALPRAZolam [Xanax 1 MG Tablet] 1 mg PO HS 30 Days #30 tablet 05/29/17 [Rx] Atorvastatin [Lipitor] 40 mg PO HS tablet 05/29/17 [Rx] Rivaroxaban [Xarelto] 15 mg PO BID #42 tablet 06/12/17 [Rx] 3 Allergy/AdvReac Type Severity Reaction Status Date / Time No Known Allergies Allergy Verified 06/12/17 17:01 All Systems Review: The remainder of the systems were reviewed and are negative Exam Vital Signs, Last 4 Hours Temp Pulse Resp BP Pulse Ox 06/16/17 11:01 98.6 F 71 14 107/71 95 General: Present: No Apparent Distress, Well developed, Well nourished HEENT: Present: Atraumatic Neck: Absent: JVD Neuro: Present: Alert and responsive, No focal deficits noted, Cranial nerves grossly intact Abdomen: Present: Soft, Non-tender. Absent: Masses Vascular: Present: Pulse, normal, Edema (Patient has mild edema of the left lower extremity as compared to the right.), Color/Temperature (Both lower extremities are warm and pink. There is no findings of cyanosis or phlegmasia.) . Absent: Cyanosis Skin: Present: No rashes noted on visualized skin Other: Patient has an indwelling Lucero demonstrating gross hematuria. Consult Discharge Plan - Plan Referrals: Anabel Rasmussen CNP [Primary Care Provider] -
[2017-06-16] MEDS ORDERED: ALPRAZolam 0.25 MG TABLET PO ONE (15:15)
--- NOTE | 2017-06-16 16:04 | Urology Procedure Note ---
Date of Encounter: 06/16/17 Time of Encounter: 16:01 Procedures:Urology - Bladder Irrigation/Clot Evacuation Consent obtained: verbal consent Irrigation: saline Amount of Clot: 50 cc Patient tolerated procedure: well Continuous Bladder Irrigation: Yes Complications: none Additional comments: I irrigated the remaining clot seen on CT scan. irrigating clear at end of procedure. OK to restart xarelto (lower dose) if primary service wishes to try. will watch closely for recurrence of hematuria. I do not feel there was an obvious bladder tumor on CT scan (likely clots). probably needs outpatient cysto. no other concerning findings. soure of bleeding not obvious at this point. will follow tomorrow.
[2017-06-16] MEDS: *HR* Rivaroxaban 10 MG TABLET PO SCH (17:10)
[2017-06-16] MEDS: ALPRAZolam 1 MG TABLET PO SCH (21:17)
[2017-06-16] MEDS: Latanoprost 2.5 ML BOTTLE BOTH EYES SCH (21:19)
--- NOTE | 2017-06-17 08:32 | Urology Progress Note ---
Date of Encounter: 06/17/17 Time of Encounter: 08:30 - Assessment and Plan (1) Clot retention of urine Current Visit: Yes Status: Resolved Assessment and plan: urine is completely clear. pt has recieved one dose xarelto without return fo hematuria. recommend watching at least overnight but if still clear in AM, ok to remove cath and discharge. pt will need nonurgent outatient cystoscopy. Progress Note Subjective: feels better Narrative: urine clear. one dose of xarelto given Objective Initial Vital Signs Temp Pulse Resp BP Pulse Ox 97.9 F 101 18 109/77 93 06/14/17 14:49 06/14/17 14:49 06/14/17 14:49 06/14/17 14:49 06/14/17 14:49 - General physical appearance Present: no distress - Labs 06/16/17 03:38 06/16/17 03:38 Consult Discharge Plan - Plan Referrals: Anabel Rasmussen, [employer] [Primary Care Provider] -
[2017-06-17 09:40] LABS: Basophils % 0.8 %; Eosinophils # 0.3 K/mcL (0.0-0.6); Eosinophils % 6.1 %; Hematocrit 35.6 % (35.3-44.9); Hemoglobin 11.7 g/dL (11.5-15.4); Immature Granulocytes % 1.4 % (0-4); Immature Platelets 2.5 % (1.1-6.1); Lymphocytes # 0.8 K/mcL (0.6-4.6); Lymphocytes % 15.4 %; Mean Corpuscular HGB Conc 32.9 g/dL (31.6-35.5); Mean Corpuscular Hemoglobin 31.4 pg (28.0-33.3); Mean Corpuscular Volume 95.4 fL (83.0-100.0); Mean Platelet Volume 9.4 fL (9.4-12.4); Monocytes # 0.5 K/mcL (0.0-1.3); Monocytes % 9.8 %; Neutrophils # 3.3 K/mcL (1.6-8.9); Nucleated Red Blood Cells 0.4 /100 WBC (0); Platelet Count 269 K/mcL (140-400); Red Blood Count 3.73 M/mcL (3.82-4.97); Red Cell Distribution Width 15.8 % (11.5-14.5); Segmented Neutrophils % 66.5 %
[2017-06-17 09:55] LABS: BUN/Creatinine Ratio 14 (6-26); Blood Urea Nitrogen 7 mg/dL (8-23); Calcium 8.1 mg/dL (8.6-10.3); Carbon Dioxide 23 mEq/L (23-29); Chloride 104 mEq/L (98-107); Glucose 102 mg/dL (70-105); Osmolality,Calculated 278 (280-300); Potassium 3.7 mEq/L (3.5-5.1); Sodium 135 mEq/L (136-145); eGFR For African Americans > 60 (> 60); eGFR For Non-African Americans > 60 (> 60)
--- NOTE | 2017-06-17 10:10 | Internal Med Progress Note ---
Date of Encounter: 06/17/17 Time of Encounter: 10:08 - Assessment and plan (1) Hematuria Current Visit: Yes Status: Acute Assessment and plan: CBI stopped. Hematuria resolving. Urology is following. CT abd/pelvis noted. Hemoglobin dropped about 4 g since about mid May. hgb down to 10.2 yesterday but up to 11.[address] Paz who would like to observe the patient tonight. Qualifiers: Hematuria type: gross Qualified Code(s): R31.0 - Gross hematuria (2) DVT (deep venous thrombosis) Current Visit: Yes Status: Acute Assessment and plan: Xarelto dose has been reduced to 10 mg now due to hemturia. Hematology's help is appreciated. Watch for hematuria. If hematuria recures, then we will have to place an IVC filter. Qualifiers: DVT location: lower extremity Affected thrombotic vein of extremity: unspecified vein of extremity Chronicity: acute Laterality: left Qualified Code(s): I82.402 - Acute embolism and thrombosis of unspecified deep veins of left lower extremity (3) Hyperlipemia Current Visit: No Status: Acute Assessment and plan: Continue statin Qualifiers: Hyperlipidemia type: pure hypercholesterolemia Qualified Code(s): E78.00 - Pure hypercholesterolemia, unspecified; E78.0 - Pure hypercholesterolemia (4) DVT prophylaxis Current Visit: No Status: Acute Assessment and plan: on Xarelto again - Subjective Interval history: She was seen and examined. Patient was on continuous bladder irrigation and now stopped. Hematuria is improving. The urine is less red and more on the pinkish color. More clots removed yesterday by Dr. Paz. Recieved 10 mg xarelto yesterday. Recently started on Xarelto for left lower extremity DVT and only had one dose of it before she started having urinary clots. Received about 3-4 doses of it prior to this. Patient was recently admitted to the hospital for 2 weeks for which she was treated for aortitis and pneumonia. Has required ICU stay. - Constitutional Vitals: Temp Pulse Resp BP Pulse Ox 98.2 F 75 16 89/58 93 06/17/17 08:04 06/17/17 08:04 06/17/17 08:04 06/17/17 08:04 06/17/17 09:46 General appearance: Present: no acute distress Exam: NGEN: NAD CVS: RRR. S1, S2, No m/r/g RESP: CTAB ABD: Soft, NT, ND, +BS EXT: No edema. 2+ DP. No rashes NEURO: Nonfocalnts. Internal Medicine: Result - Labs CBC & Chem 7: 06/17/17 08:37 06/17/17 08:37 Labs: Short CBC 06/17/17 Range/Units 08:37 WBC 4.9 (4.3-11.1) K/mcL Hgb 11.7 D (11.5-15.4) g/dL Hct 35.6 (35.3-44.9) % Plt Count 269 (140-400) K/mcL Neutrophils # 3.3 (1.6-8.9) K/mcL BMP 06/17/17 08:37 Sodium 135 L Potassium 3.7 Chloride 104 Carbon Dioxide 23 BUN 7 L Creatinine 0.49 L Glucose 102 Calcium 8.1 L - ABG Interpretation ABG results: PT/INR, D-dimer D-Dimer 5842 ng/mLFEU (0-500) H 06/15/17 19:22 - Impressions Impressions Abdomen/Pelvis CT 06/16/17 08:30 IMPRESSION: 1. Lucero catheter in place with large irregular filling defect in the urinary bladder surrounding the Lucero retention bulb, most likely representing blood clot. Detailed assessment and evaluation of enhancement characteristics is limited due to streak artifact from a left hip arthroplasty. Possibility of underlying urinary bladder mass is not entirely excluded. Consider additional evaluation with cystoscopy. 2. No evidence of solid renal mass or obstructive uropathy. There is a large simple left renal cyst and punctate right renal calculus noted. 3. Unchanged subcentimeter hypodensity at the anterior pancreatic body. Unchanged mild pancreatic ductal dilatation, which could be further evaluated with ERCP or MRCP, if clinically indicated. 4. 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 Previously noted periaortic inflammatory changes appear improved. 5. Prominent interstitial thickening and ground-glass attenuation with trace pleural fluid at the lung bases, new from the previous study, suggesting interstitial edema. D/ / 06/16/2017 09:48:05 Ramonita Howell / blue Interpreting Provider: Ramonita Howell Consult Discharge Plan - Plan Referrals: Anabel Rasmussen CNP [Primary Care Provider] -
--- NOTE | 2017-06-17 15:54 | Event Note ---
Date of Encounter: 06/17/17 Time of Encounter: 15:50 Patient is having recurrence of hematuria. Spoke to Dr. Paz from urology as well as Dr. Rapp from hematology and the consensus decision is to stop anticoagulation and to place an IVC filter. We will restart CBI. Unfortunately we do not have vascular service till Monday. I had a detailed discussion with the patient and her daughter Ruthy. I offered the patient a transfer to another facility for IVC filter placement. I explained to them in details the risks and benefits of staying in the hospital until Monday versus to get transferred today to get an IVC filter placed tomorrow morning somewhere else. They understand the risk of a pulmonary embolus given the extensive DVT that she has. They understand the idea of a half-life of Xarelto. They understand that she was not really receiving the appropriate dose of Xarelto that is recommended for DVTs. At the and they made the decision to stay until Monday. She is to be nothing by mouth after midnight Monday night. She is currently hemodynamically stable on room air. The patient's nurse Radha arroyo was in the room throughout my conversation with the patient and her daughter over the phone.
[2017-06-17] MEDS: Latanoprost 2.5 ML BOTTLE BOTH EYES SCH (17:04)
[2017-06-17] MEDS: *HR* Rivaroxaban 10 MG TABLET PO SCH (17:04)
[2017-06-17] MEDS: ALPRAZolam 1 MG TABLET PO SCH (19:59)
[2017-06-18 05:29] LABS: Basophils # 0.1 K/mcL (0.0-0.2); Basophils % 1.1 %; Eosinophils # 0.3 K/mcL (0.0-0.6); Eosinophils % 6.8 %; Hemoglobin 11.7 g/dL (11.5-15.4); Immature Granulocytes % 1.7 % (0-4); Lymphocytes # 0.9 K/mcL (0.6-4.6); Lymphocytes % 20.3 %; Mean Corpuscular HGB Conc 32.5 g/dL (31.6-35.5); Mean Corpuscular Hemoglobin 31.5 pg (28.0-33.3); Mean Corpuscular Volume 96.8 fL (83.0-100.0); Mean Platelet Volume 9.5 fL (9.4-12.4); Monocytes # 0.4 K/mcL (0.0-1.3); Monocytes % 8.1 %; Neutrophils # 2.9 K/mcL (1.6-8.9); Platelet Count 254 K/mcL (140-400); Red Blood Count 3.72 M/mcL (3.82-4.97); Red Cell Distribution Width 15.6 % (11.5-14.5)
[2017-06-18 05:48] LABS: BUN/Creatinine Ratio 14 (6-26); Blood Urea Nitrogen 7 mg/dL (8-23); Calcium 8.1 mg/dL (8.6-10.3); Carbon Dioxide 23 mEq/L (23-29); Chloride 106 mEq/L (98-107); Glucose 84 mg/dL (70-105); Osmolality,Calculated 277 (280-300); Potassium 3.8 mEq/L (3.5-5.1); Sodium 135 mEq/L (136-145); eGFR For African Americans > 60 (> 60); eGFR For Non-African Americans > 60 (> 60)
--- NOTE | 2017-06-18 08:43 | Urology Progress Note ---
Date of Encounter: 06/18/17 Time of Encounter: 08:41 - Assessment and Plan (1) Clot retention of urine Current Visit: Yes Status: Resolved Assessment and plan: I am not convinced the patient developed repeat bleeding from the urinary tract overnight. This may have been an old clot that was in her bladder. Regardless it appears the plan is to place a [place] filter tomorrow. I am in agreement with this plan as it will reduce the risk of bleeding because of anticoagulation. I elected to remove her catheter this morning. It was causing discomfort for the most part her hematuria appears to have resolved. I do expect the patient to have some hematuria and small clots pass now that the catheters been removed hopefully the urine will clear after that. We discussed the risk of rebleeding secondary to catheter removal. If she urinates without difficulty we will continue to observe with no catheter in place. Progress Note Narrative: Overnight events with the catheter noted. Required irrigation because of incontinence and bladder pressure. Small clot returned. Urine has been clear for most of the morning. Objective Initial Vital Signs Temp Pulse Resp BP Pulse Ox 97.9 F 101 18 109/77 93 06/14/17 14:49 06/14/17 14:49 06/14/17 14:49 06/14/17 14:49 06/14/17 14:49 - General physical appearance Present: no distress - Additional Exam Urine clear off CBI - Labs 06/18/17 04:22 06/18/17 04:22 Diabetes panel 06/18/17 Range/Units 04:22 Sodium 135 L (136-145) mEq/L Potassium 3.8 (3.5-5.1) mEq/L Chloride 106 (98-107) mEq/L Carbon Dioxide 23 (23-29) mEq/L BUN 7 L (8-23) mg/dL Creatinine 0.49 L (0.60-1.20) mg/dL Glucose 84 (70-105) mg/dL Calcium 8.1 L (8.6-10.3) mg/dL Calcium panel 06/18/17 Range/Units 04:22 Calcium 8.1 L (8.6-10.3) mg/dL Pituitary panel 06/18/17 Range/Units 04:22 Sodium 135 L (136-145) mEq/L Potassium 3.8 (3.5-5.1) mEq/L Chloride 106 (98-107) mEq/L Carbon Dioxide 23 (23-29) mEq/L BUN 7 L (8-23) mg/dL Creatinine 0.49 L (0.60-1.20) mg/dL Glucose 84 (70-105) mg/dL Calcium 8.1 L (8.6-10.3) mg/dL Adrenal panel 06/18/17 Range/Units 04:22 Sodium 135 L (136-145) mEq/L Potassium 3.8 (3.5-5.1) mEq/L Chloride 106 (98-107) mEq/L Carbon Dioxide 23 (23-29) mEq/L BUN 7 L (8-23) mg/dL Creatinine 0.49 L (0.60-1.20) mg/dL Glucose 84 (70-105) mg/dL Calcium 8.1 L (8.6-10.3) mg/dL Consult Discharge Plan - Plan Referrals: Anabel Rasmussen, [employer] [Primary Care Provider] -
[2017-06-18] MEDS ORDERED: Famotidine 20 MG TABLET PO ONE (14:38)
[2017-06-18] MEDS: *HR* Rivaroxaban 10 MG TABLET PO SCH (14:39)
--- NOTE | 2017-06-18 15:27 | Internal Med Progress Note ---
Date of Encounter: 06/18/17 Time of Encounter: 12:48 - Assessment and plan (1) DVT (deep venous thrombosis) Current Visit: Yes Status: Acute Assessment and plan: Pt noted to have hematuria despite lowering the Xarelto dose As per gate technician, and given severity of hematuria, Xarelto was placed on hold pt continued to have hematuria this morning due to which xarelto to remain on hold at this time Pt scheduled to receive IVC filter placement in am (06/19/17). Will follow up with gate technician about intermission coordinator anticoagulation upon discharge Qualifiers: DVT location: lower extremity Affected thrombotic vein of extremity: unspecified vein of extremity Chronicity: acute Laterality: left Qualified Code(s): I82.402 - Acute embolism and thrombosis of unspecified deep veins of left lower extremity (2) Hematuria Current Visit: Yes Status: Acute Assessment and plan: urology on board and evaluation appreciated will closely monitor H&H Qualifiers: Hematuria type: gross Qualified Code(s): R31.0 - Gross hematuria (3) Hyperlipemia Current Visit: No Status: Chronic Assessment and plan: continue home dose of statin Qualifiers: Hyperlipidemia type: pure hypercholesterolemia Qualified Code(s): E78.00 - Pure hypercholesterolemia, unspecified; E78.0 - Pure hypercholesterolemia - Subjective Interval history: Pt seen and examined at bedside. Denies any discomfort at this time. No hematuria reported since bedolla catheter removal. Decision was made to hold oral anticoagulation and place IVC filter in am () after discussion with patient's gate technician. D/C likely in am after IVC filter placement. Will follow up with hematology in regards to intermission coordinator anticoagulation prior to discharge. - Constitutional Vitals: Temp Pulse Resp BP Pulse Ox 97.5 F L 84 17 91/62 93 06/18/17 11:19 06/18/17 11:19 06/18/17 11:19 06/18/17 11:19 06/18/17 11:19 General appearance: Present: A&O X 3, no acute distress, answers questions appropriately - Head Head exam: Present: atraumatic, normocephalic - Eye Eye exam: Present: conjuntiva pink, sclera anicteric - Respiratory Respiratory exam: Present: CTAB. Absent: respiratory distress, wheezes - Cardiovascular Cardiovascular exam: Present: RRR, +S1, +S2. Absent: diastolic murmur, gallop, rubs, systolic murmur - GI/Abdominal GI/Abdominal exam: Present: normal bowel sounds, soft, no peritoneal signs. Absent: distended, tenderness - Extremities Exam Extremities exam: Present: warm, radial pulses palpable and symmetrical. Absent : calf tenderness, cyanotic, pedal edema - Neurological Exam Neurological exam: Present: alert, oriented X3 - Psychiatric Psychiatric exam: Present: normal affect, normal mood Internal Medicine: Result - Labs CBC & Chem 7: 06/18/17 04:22 06/18/17 04:22 Labs: Short CBC 06/18/17 Range/Units 04:22 WBC 4.6 (4.3-11.1) K/mcL Hgb 11.7 (11.5-15.4) g/dL Hct 36.0 (35.3-44.9) % Plt Count 254 (140-400) K/mcL Neutrophils # 2.9 (1.6-8.9) K/mcL BMP 06/18/17 04:22 Sodium 135 L Potassium 3.8 Chloride 106 Carbon Dioxide 23 BUN 7 L Creatinine 0.49 L Glucose 84 Calcium 8.1 L - ABG Interpretation ABG results: PT/INR, D-dimer D-Dimer 5842 ng/mLFEU (0-500) H 06/15/17 19:22 Consult Discharge Plan - Plan Referrals: Anabel Rasmussen CNP [Primary Care Provider] -
[2017-06-18] MEDS: Latanoprost 2.5 ML BOTTLE BOTH EYES SCH (17:12)
[2017-06-18] MEDS ORDERED: Ondansetron 4 MG/2 ML VIAL ONE (18:22)
[2017-06-18] MEDS: Ondansetron 4 MG/2 ML VIAL IVP PRN (18:36)
--- NOTE | 2017-06-18 20:56 | Oncology Inp Progress Note ---
Date of Encounter: 06/18/17 Time of Encounter: 20:53 (1) DVT (deep venous thrombosis) Current Visit: Yes Status: Acute Assessment and plan: I informed the patient that I am in agreement with the plan of filter placement and then cystoscopy thereafter. We discussed that the urgent need is to ensure that she not have a PE given the size of the DVT. furthermore, we also discussed that our recommendation would be for a temporary filter as her ultimate duration of actual anticoagulation would be short (as this DVT is considered to be provoked) and data suggest that although permanent filters do prevent PE, remote computer terminal operator retention does increase the risk for subsequent DVT. Qualifiers: DVT location: lower extremity Affected thrombotic vein of extremity: unspecified vein of extremity Chronicity: acute Laterality: left Qualified Code(s): I82.402 - Acute embolism and thrombosis of unspecified deep veins of left lower extremity (2) Hematuria Current Visit: Yes Status: Acute Assessment and plan: Resolves since cessation of anticoagulation. Catheter removed yesterday. She will likely need cystoscopiuc evaluation to identify the etiology of the grosds hematuria. Qualifiers: Hematuria type: gross Qualified Code(s): R31.0 - Gross hematuria Oncology: Subj Interval history: Patient had some questions regarding the filter placement and to ensure that we were in agreement with the plan. She would like to get back to her normal life. She has no major physical c/o at the moment. - Constitutional Vitals: Vital Signs Temp Pulse Resp BP Pulse Ox 06/18/17 19:42 98.1 F 78 17 99/66 92 06/18/17 15:28 97.9 F 89 18 106/61 91 06/18/17 11:19 97.5 F L 84 17 91/62 93 06/18/17 08:57 93 06/18/17 07:25 98.2 F 115 17 108/73 93 06/18/17 04:00 99 F 70 16 110/73 93 06/18/17 00:07 99.4 F 74 17 102/68 91 Intake and Output 06/18/17 06/18/17 06/19/17 08:59 16:59 00:59 Intake Total 0 / 0 240 / 240 Output Total 2200 / 2200 Balance -2200 / -2200 240 / 240 Intake: Oral 0 / 0 240 / 240 Output: Urine 700 / 700 Catheter 1500 / 1500 Other: Meal Lunch Percent of Meal Consumed 55% # Voids 1 Weight 67.7 kg Patient Weight 06/19/17 00:59 Weight 67.7 kg Oncology: Obj Data - Labs CBC & Chem 7: 06/18/17 04:22 06/18/17 04:22 Labs: Laboratory Results - last 24 hr 06/18/17 06/18/17 04:22 04:22 WBC 4.6 RBC 3.72 L Hgb 11.7 Hct 36.0 MCV 96.8 MCH 31.5 MCHC 32.5 RDW 15.6 H Plt Count 254 MPV 9.5 Immature Gran % 1.7 Seg Neutrophils % 62.0 Lymphocytes % 20.3 Monocytes % 8.1 Eosinophils % 6.8 Basophils % 1.1 Neutrophils # 2.9 Lymphocytes # 0.9 Monocytes # 0.4 Eosinophils # 0.3 Basophils # 0.1 Sodium 135 L Potassium 3.8 Chloride 106 Carbon Dioxide 23 BUN 7 L Creatinine 0.49 L Est GFR ( Amer) > 60 Est GFR (Non-Af Amer) > 60 BUN/Creatinine Ratio 14 Glucose 84 Calculated Osmolality 277 L Calcium 8.1 L - ABG Interpretation ABG results: PT/INR, D-dimer D-Dimer 5842 ng/mLFEU (0-500) H 06/15/17 19:22 Consult Discharge Plan - Plan Referrals: Anabel Rasmussen CNP [Primary Care Provider] -
[2017-06-18] MEDS: ALPRAZolam 1 MG TABLET PO SCH (21:34)
[2017-06-19 05:42] LABS: Basophils # 0.1 K/mcL (0.0-0.2); Eosinophils # 0.3 K/mcL (0.0-0.6); Eosinophils % 5.9 %; Hematocrit 35.1 % (35.3-44.9); Hemoglobin 11.4 g/dL (11.5-15.4); Immature Granulocytes % 1.8 % (0-4); Lymphocytes # 0.9 K/mcL (0.6-4.6); Lymphocytes % 18.4 %; Mean Corpuscular HGB Conc 32.5 g/dL (31.6-35.5); Mean Corpuscular Hemoglobin 31.1 pg (28.0-33.3); Mean Corpuscular Volume 95.9 fL (83.0-100.0); Mean Platelet Volume 9.4 fL (9.4-12.4); Monocytes # 0.6 K/mcL (0.0-1.3); Monocytes % 11.5 %; Neutrophils # 3.1 K/mcL (1.6-8.9); Platelet Count 258 K/mcL (140-400); Red Blood Count 3.66 M/mcL (3.82-4.97); Red Cell Distribution Width 15.6 % (11.5-14.5); Segmented Neutrophils % 61.4 %
[2017-06-19 06:06] LABS: BUN/Creatinine Ratio 15 (6-26); Blood Urea Nitrogen 8 mg/dL (8-23); Calcium 8.1 mg/dL (8.6-10.3); Carbon Dioxide 23 mEq/L (23-29); Chloride 107 mEq/L (98-107); Glucose 92 mg/dL (70-105); Magnesium 1.9 mg/dL (1.6-2.6); Osmolality,Calculated 278 (280-300); Phosphorous 3.2 mg/dL (2.7-4.5); Potassium 3.7 mEq/L (3.5-5.1); Sodium 135 mEq/L (136-145); eGFR For African Americans > 60 (> 60); eGFR For Non-African Americans > 60 (> 60)
--- NOTE | 2017-06-19 06:58 | Urology Progress Note ---
Date of Encounter: 06/19/17 Time of Encounter: 06:56 - Assessment and Plan (1) Clot retention of urine Current Visit: Yes Status: Resolved Assessment and plan: agree with IVC filter. ok for discharge per standpoint. followup in next 4-6 weeks. will need outpatient office cystoscopy. Progress Note Subjective: no new complaints Narrative: pt states she is urinating without hematuria. no hesitency. xarelto has been held a second time bc of hematuria. Objective Initial Vital Signs Temp Pulse Resp BP Pulse Ox 97.9 F 101 18 109/77 93 06/14/17 14:49 06/14/17 14:49 06/14/17 14:49 06/14/17 14:49 06/14/17 14:49 - General physical appearance Present: no distress - Labs 06/19/17 05:23 06/19/17 05:23 Diabetes panel 06/19/17 Range/Units 05:23 Sodium 135 L (136-145) mEq/L Potassium 3.7 (3.5-5.1) mEq/L Chloride 107 (98-107) mEq/L Carbon Dioxide 23 (23-29) mEq/L BUN 8 (8-23) mg/dL Creatinine 0.53 L (0.60-1.20) mg/dL Glucose 92 (70-105) mg/dL Calcium 8.1 L (8.6-10.3) mg/dL Calcium panel 06/19/17 Range/Units 05:23 Calcium 8.1 L (8.6-10.3) mg/dL Phosphorus 3.2 (2.7-4.5) mg/dL Pituitary panel 06/19/17 Range/Units 05:23 Sodium 135 L (136-145) mEq/L Potassium 3.7 (3.5-5.1) mEq/L Chloride 107 (98-107) mEq/L Carbon Dioxide 23 (23-29) mEq/L BUN 8 (8-23) mg/dL Creatinine 0.53 L (0.60-1.20) mg/dL Glucose 92 (70-105) mg/dL Calcium 8.1 L (8.6-10.3) mg/dL Adrenal panel 06/19/17 Range/Units 05:23 Sodium 135 L (136-145) mEq/L Potassium 3.7 (3.5-5.1) mEq/L Chloride 107 (98-107) mEq/L Carbon Dioxide 23 (23-29) mEq/L BUN 8 (8-23) mg/dL Creatinine 0.53 L (0.60-1.20) mg/dL Glucose 92 (70-105) mg/dL Calcium 8.1 L (8.6-10.3) mg/dL Consult Discharge Plan - Plan Referrals: Anabel Rasmussen CNP [Primary Care Provider] -
[2017-06-19] MEDS ORDERED: Heparin 1,000 UNITS/500 mL 500 ML ONE (10:30)
--- NOTE | 2017-06-19 10:47 | Discharge Summary ---
- NOTES TO OUTPATIENT PROVIDER Notes to Outpatient Provider: Patient's anticoagulation was discontinued due to hematuria and an IVC filter was placed. Please restart patient on appropriate anticoagulation as needed. Orders not resulted at time of discharge: Pending orders 06/19/17 IR IVC filter placement [IR] Routine IR us guide needle place [IR] Routine Date of Encounter: 06/19/17 Time of Encounter: 10:08 - Discharge Diagnosis (1) DVT (deep venous thrombosis) Priority: Primary Status: Acute Qualifiers: DVT location: lower extremity Affected thrombotic vein of extremity: unspecified vein of extremity Chronicity: acute Laterality: left Qualified Code(s): I82.402 - Acute embolism and thrombosis of unspecified deep veins of left lower extremity (2) Hematuria Priority: Secondary Status: Resolved Qualifiers: Hematuria type: gross Qualified Code(s): R31.0 - Gross hematuria (3) Hyperlipemia Priority: Secondary Status: Chronic Qualifiers: Hyperlipidemia type: pure hypercholesterolemia Qualified Code(s): E78.00 - Pure hypercholesterolemia, unspecified; E78.0 - Pure hypercholesterolemia Hospital course: Ms. Miranda is a 76 year old female with history of DVT, hyperlipidemia who was admitted for management of hematuria. Pt was noted to have recently started on Xarelto for DVT treatment. Given her severe hematuria, Xarelto dose was reduced in half and urology was consulted. Pt had a bedolla catheter placed with continuous bladder irrigation. Her symptoms initially improved with lowering the xarelto dose, however hematuria persisted, due to which Xarelto was discontinued. Hematology was consulted given the clot burden and need for anticoagulation. Decision to get an IVC filter placed was made and as per hematology defer initiation of anticoagulation after discharge. Pt's bedolla cath was removed by urology with resolution of hematuria. Outpatient follow up with urology is recommended with possible cystoscopy in a few weeks after discharge. Plan was discussed with the patient and family, all questions were answered. Family and patient in agreement with the discharge care and plan. Discharge discussed with: patient, family, nurse - Time Spent with Patient Total time spent providing and/or coordinating discharge services: - Discharge Medications Home Medications: Bimatoprost [Lumigan] 1 drop BOTH EYES QPM 05/16/17 [History] ALPRAZolam [Xanax 1 MG Tablet] 1 mg PO HS 30 Days #30 tablet 05/29/17 [Rx] Atorvastatin [Lipitor] 40 mg PO HS tablet 05/29/17 [Rx] Allergies/Adverse Reactions: 3 Allergy/AdvReac Type Severity Reaction Status Date / Time No Known Allergies Allergy Verified 06/12/17 17:01 Date of admission: 06/17/17 10:28 Primary care physician: Anabel Rasmussen CNP Consults: 06/19/17 09:59 Consult to Interventional Radiology [CONS] Stat Consulting Provider: Radiology Interventional Cols Reason for Consult: Roger Filter placement Call Completed: Yes Discharging clinician: Rosie Rosas Anticipated date of discharge: 06/19/17 - Constitutional Vitals: Temp Pulse Resp BP Pulse Ox 98.2 F 84 16 90/59 92 06/19/17 08:38 06/19/17 08:38 06/19/17 08:38 06/19/17 08:38 06/19/17 08:38 General appearance: Present: A&O X 3, no acute distress, answers questions appropriately - Head Head exam: Present: atraumatic, normocephalic - Eye Eye exam: Present: conjuntiva pink, sclera anicteric - Respiratory Respiratory exam: Present: CTAB. Absent: accessory muscle use, rales, rhonchi, wheezes - Cardiovascular Cardiovascular exam: Present: RRR, +S1, +S2. Absent: diastolic murmur, gallop, rubs, systolic murmur - GI/Abdominal GI/Abdominal exam: Present: normal bowel sounds, soft, no peritoneal signs. Absent: distended, tenderness - Extremities Exam Extremities exam: Present: warm, radial pulses palpable and symmetrical. Absent : calf tenderness, cyanotic, pedal edema - Neurological Exam Neurological exam: Present: alert, oriented X3 - Psychiatric Psychiatric exam: Present: normal affect, normal mood - Patient Status Disposition: Home Health Service Condition: Good Functional capacity at discharge: independent ambulation Overall status at discharge: patient is back to baseline - Discharge Instructions Follow Up With: Dave See [Non-Partnered Physician] - 06/22/17 9:00 am Anabel Rasmussen CNP [Primary Care Provider] - (web request sent on 06/19/17) Additional Instructions: Please follow up with your primary care physician and embossing machine operator within five days after your discharge from the hospital. Please continue to hold Xarelto until your follow up with hematology. Please follow up with urology within four weeks after your discharge from the hospital Please resume all your other home medications as prescribed by your primary care physician. - Diet and Activity Activity: increase activity as tolerated Diet: low fat, low cholesterol, low salt diet
--- NOTE | 2017-06-19 10:59 | Physician Discharge Referral ---
Home Health/Hosp Referral Info Transfer to: Home Health Provider in Charge Post Discharge: PCP - Diagnosis (1) DVT (deep venous thrombosis) Priority: Secondary Status: Acute (2) Hematuria Priority: Primary Status: Resolved (3) Hyperlipemia Priority: Secondary Status: Chronic - Respiratory Orders Smoking Cessation: Smoking cessation has been advised. For more information, call the [place] Tobacco Quit Line at 0-456-BAEC-NOW. - Services Needed Following services are medically necessary services: Nursing, Home Health Aide, Physical Therapy - Transfer Medications Home Medications: Bimatoprost [Lumigan] 1 drop BOTH EYES QPM 05/16/17 [History] ALPRAZolam [Xanax 1 MG Tablet] 1 mg PO HS 30 Days #30 tablet 05/29/17 [Rx] Atorvastatin [Lipitor] 40 mg PO HS tablet 05/29/17 [Rx] Allergies/Adverse Reactions: 3 Allergy/AdvReac Type Severity Reaction Status Date / Time No Known Allergies Allergy Verified 06/12/17 17:01 Certification: Further, I certify that my clinical findings support that this patient is homebound (i.e. absences from home require considerable and taxing effort and are for medical reasons or [employer] services or infrequently or short duration when for other reasons) because: Homebound Reason: Patient requires assistance of a person or device to safely leave home Attestation: My signature below is to certify that this patient is under my care and that I, or nurse practitioner, or a physician's diver assistant working with me, has a face-to -face encounter with this patient.
--- NOTE | 2017-06-19 12:14 | IR Procedure Note ---
Date of procedure: 06/19/17 Consent Obtained: Written consent Timeout: Correct patient and procedure verified, Correct site verified, Time out performed, Skin prep completed Indications: DVT Procedure Performed: IVC filter Was there an content assistant present: No Site/Technique: rt femoral vein access Results/Findings: IVC filter in infrarenal IVC Estimated blood loss (cc): 2 Complications: None; Tolerated procedure well Post Procedure Treatment Plan: observation Specimen: none
[2017-06-19 17:01] LABS: Hematocrit 34.7 % (35.3-44.9); Hemoglobin 11.4 g/dL (11.5-15.4)
[2017-06-19 17:10] LABS: INR 1.2; Prothrombin Time 12.9 Seconds (9.4-12.1)
[2017-06-19] MEDS: Latanoprost 2.5 ML BOTTLE BOTH EYES SCH (18:22)
[2017-06-19] MEDS: ALPRAZolam 1 MG TABLET PO SCH (20:54)
--- NOTE | 2017-06-20 11:23 | Internal Med Progress Note ---
Date of Encounter: 06/20/17 Time of Encounter: 10:55 - Assessment and plan (1) DVT (deep venous thrombosis) Current Visit: Yes Status: Acute Qualifiers: DVT location: lower extremity Affected thrombotic vein of extremity: unspecified vein of extremity Chronicity: acute Laterality: left Qualified Code(s): I82.402 - Acute embolism and thrombosis of unspecified deep veins of left lower extremity (2) Hematuria Current Visit: Yes Status: Resolved Qualifiers: Hematuria type: gross Qualified Code(s): R31.0 - Gross hematuria (3) Hyperlipemia Current Visit: No Status: Chronic Qualifiers: Hyperlipidemia type: pure hypercholesterolemia Qualified Code(s): E78.00 - Pure hypercholesterolemia, unspecified; E78.0 - Pure hypercholesterolemia - Time Spent With Patient Total time spent is greater than 50% in coordination of care (as documented) at patient's floor/unit and/or counseling patient: - Subjective Interval history: Pt seen and examined at bedside. Resting comfortably in bed and denies any distress. Pt received an IVC filter yesterday (06/19/17) and her post procedural course was complicated with severe bleeding from the site of catheter insertion. Bleeding was stopped with compression for over 30 minutes, and patient's discharge was held for close monitoring. Pt did not have any recurrent bleed and H&H remained stable. No further over night events were reported. Pt is hemodynamically stable and will be discharged to home today without outpatient follow up with PCP, hematology, and urology. - Constitutional Vitals: Temp Pulse Resp BP Pulse Ox 98.1 F 81 15 105/65 91 06/20/17 06:51 06/20/17 06:51 06/20/17 06:51 06/20/17 06:51 06/20/17 07:34 General appearance: Present: A&O X 3, no acute distress, answers questions appropriately - Head Head exam: Present: atraumatic, normocephalic - Eye Eye exam: Present: conjuntiva pink, sclera anicteric - Respiratory Respiratory exam: Present: CTAB. Absent: accessory muscle use, rales, rhonchi, wheezes - Cardiovascular Cardiovascular exam: Present: RRR, +S1, +S2. Absent: diastolic murmur, gallop, rubs, systolic murmur - GI/Abdominal GI/Abdominal exam: Present: normal bowel sounds, soft, no peritoneal signs. Absent: distended, tenderness - Extremities Exam Extremities exam: Present: warm, radial pulses palpable and symmetrical. Absent : calf tenderness, pedal edema - Neurological Exam Neurological exam: Present: oriented X3 Internal Medicine: Result - Labs CBC & Chem 7: 06/19/17 16:41 06/19/17 05:23 Labs: Short CBC 06/19/17 Range/Units 16:41 Hgb 11.4 L (11.5-15.4) g/dL Hct 34.7 L (35.3-44.9) % - ABG Interpretation ABG results: PT/INR, D-dimer PT 12.9 Seconds (9.4-12.1) H 06/19/17 16:41 D-Dimer 5842 ng/mLFEU (0-500) H 06/15/17 19:22 - Impressions Impressions IVC Filter Placement 06/19/17 00:00 IMPRESSION: No caval thrombus Successful placement of an infrarenal inferior vena cava filter D/ / 06/19/2017 14:27:03 Shannon Edwards MD / dennis Interpreting Provider: Shannon Edwards MD Consult Discharge Plan - Plan Instructions: Deep Venous Thrombosis (DC), Inferior Vena Cava Filter Placement (DC) Additional Instructions: Please follow up with your primary care physician and machine long goods helper within five days after your discharge from the hospital. Please continue to hold Xarelto until your follow up with hematology. Please follow up with urology within four weeks after your discharge from the hospital Please resume all your other home medications as prescribed by your primary care physician. Referrals: Dave See [Non-Partnered Physician] - 06/22/17 9:00 am Anabel Rasmussen CNP [Primary Care Provider] - 06/26/17 1:00 pm () Marciano Paz MD [Partnered Physician] - 07/17/17 1:45 pm
[2017-06-20 11:27] VITALS: BP 99/68
[2017-06-20] MEDS: Ondansetron 4 MG/2 ML VIAL IVP PRN (13:30)
== END 2017-06-20 16:10 | disposition home health service (06) | DRG 253 ==
LOC: EMEROO 14:28 → 2ANU 14:28 → SUATTDRO 06-17 10:28
PROVIDERS: ADMIT Internal Medicine Cardiovascular Disease; ATTEND Internal Medicine